=== PATIENT | male | born 1975 | race Caucasian/White ===

== ENCOUNTER 2024-05-17 12:57 | Emergency (ER) | payer SELFPAY ==
[2024-05-17] VITALS (16 sets, daily range): BP systolic 111–181; BP diastolic 75–101; PULSE 84–112; RESP 14–24; TEMP 36.3–36.8; O2SAT 95–100
--- NOTE | ~2024-05-17 | CT_ITS ---
EXAMINATION: CT abdomen pelvis w con DATE: 05/17/2024 15:04 INDICATION: Transaminitis. TECHNIQUE: Computed tomography (CT) of the abdomen and pelvis was performed with 100 mL Omnipaque 350 intravenous contrast. Automated exposure control and iterative reconstruction technique were employe d. The dose-length product was 831.93 mGy-cm. COMPARISON: None. FINDINGS: The visualized portions of the lung bases demonstrate a calcified left lung nodule and calc ified left hilar lymph nodes, consistent with old granulomatous disease. No pleural effusion. The hea rt size is normal. No pericardial effusion. There are coronary artery calcifications. There is a 7 mm cyst in the liver. There is mild intrahepatic duct dilatation. The common duct is dilated to 11 mm. The gallbladder and spleen are normal. The pancreatic duct is dilated to 7 mm. The adrenal glands and left kidney are normal. There is an 8 mm cyst in right kidney. There is a left inguinal hernia conta ining fat. There are no dilated loops of bowel. The appendix is normal. There is a 13 x 18 mm peripan creatic lymph node. There is no free intraperitoneal fluid. There is moderate thoracic and lumbar spo ndylosis. There is mild chronic anterior wedging of multiple thoracic vertebral bodies. IMPRESSION: 1. Mild intrahepatic and extrahepatic biliary duct dilatation and pancreatic duct dilatation. These f indings are suspicious for obstruction from either an occult mass such as pancreatic adenocarcinoma o r chronic pancreatitis. Consider ERCP. 2. Mildly enlarged peripancreatic lymph node. Reviewed, dictated and finalized at location A. IMPRESSION: 1. Mild intrahepatic and extrahepatic biliary duct dilatation and pancreatic du ct dilatation. These findings are suspicious for obstruction from either an occ ult mass such as pancreatic adenocarcinoma or chronic pancreatitis. Consider ER CP. 2. Mildly enlarged peripancreatic lymph node.
[2024-05-17 13:04] LABS: Glucose Point of Care > 500 mg/dl (65-105)
--- NOTE | 2024-05-17 13:09 | ED.GENADULT ---
HPI - General Adult General Chief complaint: Recheck/Abnormal Lab/Rx <David Ureña APRN - Last Filed: 05/17/24 13:11> Stated complaint: High Blood Sugar <David Ureña APRN - Last Filed: 05/17/24 13:11> Time Seen by Provider: 05/17/24 13:09 <David Ureña APRN - Last Filed: 05/17/24 13:11> Patient presents with increased thirst, generalized weakness, increased urinating for 1 month. patient states it has been getting worse. patient denies hx of diabetes. patient BS >500. PE: A&Ox3, BS non-labored CTA, abdomen soft and non-tender, HR tachycardic but regular <David Ureña APRN - Last Filed: 05/17/24 13:11> History of Present Illness HPI narrative: Breathe HPI. Patient is a 48-year-old male who presents ER with increased thirst and urination. Ongoing for last month. Associated with weakness. Patient reports a 50 lb weight loss. No fevers or chills or sweats. No diarrhea. No syncope. Accu-Chek here is reading high high. No history of diabetes. No aggravating or alleviating factors. <Paul Parada MD - Last Filed: 05/17/24 18:51> Related Data Allergies/adverse reactions: Allergies Allergy/AdvReac Type Severity Reaction Status Date / Time No Known Allergies Allergy Unknown Unverified 03/19/19 10:35 <David Ureña APRN - Last Filed: 05/17/24 13:11> Review of Systems Review of Systems: All systems reviewed & are unremarkable except as noted in HPI and below <Paul Parada MD - Last Filed: 05/17/24 18:51> Constitutional: Constitutional: Denies chills, Reports fatigue and Denies fever(s) <Paul Parada MD - Last Filed: 05/17/24 18:51> ENT: Reports system reviewed and no additional complaints, except as documented <Paul Parada MD - Last Filed: 05/17/24 18:51> Cardiovascular: Cardiovascular: Reports no additional cardiovascular complaints <Paul Parada MD - Last Filed: 05/17/24 18:51> Respiratory: Respiratory: Reports no additional respiratory complaints <Paul Parada MD - Last Filed: 05/17/24 18:51> Gastrointestinal: Gastrointestinal: Reports no additional gastrointestinal complaints <Paul Parada MD - Last Filed: 05/17/24 18:51> Musculoskeletal: Musculoskeletal: Reports no additional musculoskeletal complaints <Paul Parada MD - Last Filed: 05/17/24 18:51> [facility] Past Medical History Medical History: Medical History (Updated 05/17/24 @ 17:13 by Paul Parada MD) Healthy adult male <David JENNIE Ureña - Last Filed: 05/17/24 13:11> Surgical History Surgical History: Surgical History (Updated 05/17/24 @ 17:07 by Paul Parada MD) No history of previous surgery <David JENNIE Ureña - Last Filed: 05/17/24 13:11> Exam Narrative: GENERAL: Ill-appearing, well-nourished, and in no acute distress. HEAD: Normocephalic, atraumatic. ENT: Dry mucous membranes with pharyngeal erythema. NECK: Supple. CHEST: Clear to auscultation. No respiratory distress. HEART: Tachycardic and regular. Normal peripheral pulses. ABDOMEN: Soft, nontender, nondistended. EXTREMITIES: Normal range of motion. No edema. SKIN: Warm, dry, no rash. NEURO: Alert and oriented x3. PSYCH: Normal mood and affect. <Paul Parada MD - Last Filed: 05/17/24 18:51> Course Course Emergency Course: 1700: Accepted to the ICU at [facility] by Dr. Perales. Unable to provide GI care here. <Paul Parada MD - Last Filed: 05/17/24 18:51> Vital Signs Vital signs: Vital Signs Temperature 97.3 F L 05/17/24 12:58 Pulse Rate 112 H 05/17/24 12:58 Respiratory Rate 19 05/17/24 12:58 Blood Pressure 162/90 H 05/17/24 12:58 Pulse Oximetry 100 05/17/24 12:58 Oxygen Delivery Room Air 05/17/24 12:58 Temperature 98.3 F 05/17/24 17:30 Pulse Rate 100 05/17/24 18:21 Respiratory Rate 23 H 05/17/24 18:21 Blood Pressure 133/91 H 05/17/24 18:02 Pulse Oximetry 97 05/17/24 18:21
[2024-05-17 13:28] LABS: Basophils Percent Auto 0.4 % (0.2-1.2); Eosinophils Percent Auto 0.1 % (0-4.4); Hematocrit 45.4 % (42.0-52.0); Hemoglobin 15.9 g/dL (14.0-18.0); Immature Granulocyte Absolute 0.04 K/mm3 (0.00-0.031); Immature Granulocyte Percent A 0.4 % (0-0.5); Immature Platelet Fraction Pct 15.1 % (0.9-11.2); Lymphocytes Absolute Auto 1.18 K/mm3 (0.9-3.2); Lymphocytes Percent Auto 10.7 % (18.3-44.2); Mean Corpuscular Hemoglobin 31.3 pg (26-34); Mean Corpuscular Volume 89.4 fl (80-100); Mean Platelet Volume 12.9 fl (7.4-10.4); Monocytes Absolute Auto 0.6 K/mm3 (0.1-0.6); Monocytes Percent Auto 5.6 % (2.6-8.5); Neutrophils Absolute Auto 9.1 K/mm3 (1.3-6.7); Neutrophils Percent Auto 82.8 % (45.5-73.1); Platelet Count Result 238 k/mm3 (150-375); Red Blood Count 5.08 M/mm3 (4.6-6.20); Red Cell Distribution Width 12.3 % (11.5-14.5)
[2024-05-17 13:33] LABS: Add Urine Microscopic? NO; Appearance Urine Clear (Clear); Bilirubin Urine Negative (Negative); Blood Urine Negative (Negative); Color Urine Yellow (Yellow); Glucose Urine UA 3+ mg/dL (Negative); Ketones Urine 3+ mg/dL (Negative); Leukocyte Esterase Ur Negative LEU/UL (Negative); Nitrate Urine Negative (Negative); Protein Urine Negative (Negative); Urobilinogen Urine 0.2 mg/dL (<2.0)
[2024-05-17 13:42] LABS: Beta-Hydroxybutyrate/Acetoacetate 2.81 mmol/L (0.02-0.27)
[2024-05-17 13:49] LABS: Alanine Aminotransferase 406 U/L (6-50); Alkaline Phosphatase 964 U/L (38-126); Anion Gap 19 mmol/L (4-12); Aspartate Amino Transferase 81 U/L (17-59); Bilirubin,Total 1.9 mg/dL (0.2-1.3); Blood Urea Nitrogen 18 mg/dL (9-20); Calcium 10.3 mg/dL (8.4-10.2); Carbon Dioxide 18 mmol/L (22-30); Chloride 93 mmol/L (98-107); Estimated CRCL calculation 116 ml/min; Estimated Glomerular Filt Rate > 60; Glucose 752 mg/dL (65-110); Magnesium 2.1 mg/dL (1.6-2.3); Potassium 4.7 mmol/L (3.4-5.0); Sodium 130 mmol/L (137-145)
[2024-05-17] MEDS: SODIUM CHLORIDE 0.9% IV 1,000 ML 999 ML IV CONT ×3 (13:59→16:03)
[2024-05-17 14:30] LABS: Lactic Acid Reflex 2.8 mmol/L (0.7-2.0)
[2024-05-17 14:43] LABS: Base Excess ABG 0.6 mEq/l (+/-2.0); Carboxyhemoglobin 0.7 % THb (0-2.0); Fractional Inspired Oxygen 21 %; HCO3 ABG 21.4 mEq/l (22.0-26.0); Methemoglobin ABG 0.1 %THb (0-1.5); Oxygen Content ABG 21.2 %vol (16.0-22.0); Oxygen Saturation ABG 98.6 % (95.0-100.0); Oxyhemoglobin 98.1 % THb (90.0-100.0); PCO2 ABG 25.6 mmHg (35.0-45.0); PO2 ABG 111.1 mmHg (80.0-100.0); PO2 FiO2 Ratio Arterial Blood 5.29 %; Reduced Hemoglobin 1.1 %THb (0-5.0); Total Hemoglobin 15.3 g/dL (12.0-18.0)
[2024-05-17 14:46] LABS: Modified Allen's Test Pass; Site Drawn RIGHT RADIAL; pH ABG 7.541 (7.350-7.450)
[2024-05-17 15:29] LABS: Glucose Point of Care 497 mg/dl (65-105)
[2024-05-17 15:38] LABS: Hepatitis B Surface Antigen Negative (Negative)
[2024-05-17 15:44] LABS: HAV RESULT Negative (Negative); Hepatitis B Core IgM Result Negative (Negative)
[2024-05-17 15:53] LABS: Hemoglobin A1C > 14.0 % (<5.7)
[2024-05-17 15:55] LABS: Hepatitis B Surface Anti Res Negative; Hepatitis C Virus Antibody Negative (Negative)
[2024-05-17 16:36] LABS: Lipase 114 U/L (23-300)
[2024-05-17 17:18] LABS: Reflex Lactic Acid Yes or No Add Lactic
[2024-05-17] MEDS: INSULIN HUMAN REGULAR (*BKC) 100 UNITS in SODIUM CHLORIDE 0.9% IV 99 ML 9.43 UNITS IV CONT (17:43)
[2024-05-17 17:45] LABS: Glucose Point of Care 406 mg/dl (65-105)
[2024-05-17 17:58] LABS: Lactic Acid 1.5 mmol/L (0.7-2.0)
[2024-05-17 18:47] LABS: Glucose Point of Care 324 mg/dl (65-105)
[2024-05-17 19:45] LABS: Glucose Point of Care 336 mg/dl (65-105)
[2024-05-17 20:48] LABS: Glucose Point of Care 286 mg/dl (65-105)
[2024-05-17 22:19] LABS: Glucose Point of Care 207 mg/dl (65-105)
[2024-05-17] MEDS: DEXTROSE 5%/0.9% SOD CHL 1,000 ML 100 ML IV CONT (22:53)
[2024-05-17 23:05] LABS: Anion Gap 11 mmol/L (4-12); Blood Urea Nitrogen 15 mg/dL (9-20); Calcium 9.4 mg/dL (8.4-10.2); Carbon Dioxide 25 mmol/L (22-30); Chloride 104 mmol/L (98-107); Estimated CRCL calculation 133 ml/min; Estimated Glomerular Filt Rate > 60; Glucose 164 mg/dL (65-110); Potassium 3.5 mmol/L (3.4-5.0); Sodium 140 mmol/L (137-145)
[2024-05-17 23:29] LABS: Glucose Point of Care 202 mg/dl (65-105)
[2024-05-18 00:34] LABS: Glucose Point of Care 238 mg/dl (65-105)
[2024-05-18 00:36] VITALS: BP 129/77; PULSE 76; RESP 15; TEMP 36.6; O2SAT 97
--- NOTE | 2024-05-18 01:06 | PC.NURSE ---
[facility] here to transfer patient to [facility]
== END 2024-05-18 01:26 | disposition short-term general hospital (02) ==
PROVIDERS: Emergency Medicine; Nurse Practitioner Family; Emergency Provider Emergency Medicine
DX: E11.10 Type 2 diabetes mellitus with ketoacidosis without coma (principal); K83.1 Obstruction of bile duct
CPT/HCPCS: 36415; 36600; 74177; 80048; 80053; 80074; 81003; 82010; 82375; 82805; 82948; 83036; 83050; 83605; 83690; 83735; 84100; 85025; 85055; 86706; 87040; 96361; 96365; 96366; 99285; J1815; J7030; J7042; Q9967

== ENCOUNTER 2025-02-27 13:18 | Outpatient (CLI) | payer MEDICAID, SELFPAY ==
--- NOTE | ~2025-02-27 | PE_ITS ---
EXAMINATION: PET skull to mid thigh DATE: 02/27/2025 15:26 INDICATION: Malignant neoplasm of the pancreas TECHNIQUE: Blood glucose level was 99 mg/dL. 10.691 mCi of 18-fluorodeoxyglucose (18-FDG) was adminis tered i.v. Low dose computed tomography (CT) images were acquired from the base of the brain to the p roximal thighs for attenuation correction and anatomic localization. Positron emission tomography (PE T) images were acquired in the same distribution beginning 55 minutes after injection. Images includi ng fused PET/CT images were reconstructed in axial, coronal, and sagittal planes. Automated exposure control technique was employed. The dose-length product was 1187.67mGy-cm. COMPARISON: CT dated 05/17/2024 FINDINGS: Head/neck: There is symmetric increased activity in the oral cavity, palatine tonsils, parotid glands, submandi bular glands, laryngeal muscles and ocular muscles without CT correlate, likely physiologic. No patho logically enlarged cervical lymphadenopathy or suspicious foci of increased FDG uptake in the visuali zed head or neck. Chest: Mild emphysema. Discoid atelectasis in the right lower lobe. No suspicious pulmonary nodule, pneumoni a, pulmonary edema or pleural effusion. Heart size is normal. Atherosclerotic coronary artery calcium location. No pericardial effusion. Thoracic aorta is normal in caliber. Right internal jugular centr al venous port catheter with distal tip at the superior cavoatrial junction. No pathologically enlarg ed or FDG avid thoracic lymphadenopathy. Abdomen/pelvis/proximal thighs: Physiologic renal accumulation and excretion of FDG activity in the kidneys, bladder and along portio ns of ureters. Mild prostatomegaly measuring 4.0 x 3.6 cm. 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 Secondary mild intrahepatic pne umobilia. Diffuse hepatic steatosis with normal degree and heterogenous pattern of increased uptake t hroughout the liver without radiologic correlate or dominant FDG avid lesion. The spleen and bilatera l adrenal glands are normal. Mild uptake scattered throughout the bowels without radiologic correlate , also likely physiologic. No bowel obstruction. No other abnormal foci of increased FDG uptake or pa thologically enlarged lymphadenopathy in the abdomen, pelvis or proximal thighs. Musculoskeletal: There is mild increased likely physiologic muscular activity without radiologic correlate in the musc le of the bilateral upper arms and more prominently in the hands and forearms, at the bilateral shoul ders most prominent at the right supraspinatus muscle and at the bilateral gluteal muscles most promi nent at the right gluteus medius muscle. No suspicious lytic, blastic or abnormally FDG avid bone les ions. IMPRESSION: 1. Postoperative change of interval Whipple procedure. No FDG avid lesions suspicious for residual/re current or metastatic disease. Reviewed, dictated and finalized at location A. IMPRESSION: 1. Postoperative change of interval Whipple procedure. No FDG avid lesions susp icious for residual/recurrent or metastatic disease.
--- OUTSIDE RECORDS SUMMARY | 2025-02-27 13:23 | XMS_ITS ---
Author Organization [facility] Address [address] [place] [id number] Phone Care Team Providers Care District Medical Examiner Name Role Phone Mark Barrett MD Primary Care Provider [phone] Active Problems Problem Noted Date Diagnosed Date Protein-calorie malnutrition, moderate Cancer of head of pancreas 12/11/2024 Diabetes mellitus, new onset 05/22/2024 Encounter for diabetes education 05/22/2024 Insulin dose changed 05/22/2024 Elevated LFTs 05/21/2024 Diabetic acidosis without coma 05/18/2024 Hypokalemia 05/18/2024 Pancreatic mass 05/18/2024 Type 1 diabetes mellitus with hyperglycemia 12/2023 Current Treatment and Therapy Plans No current plan information found. Past Treatment and Therapy Plans No past plan information found. Lifetime Dose Tracking * Chemical Lifetime Dose Automatic Entry Manual Entr y Effective Dose 26.6 mSv 26.6 mSv 0 mSv Total DLP 1,950 DLP 1,950 DLP 0 DLP CTDIvol Max 26.14 mGy 26.14 mGy 0 mGy
--- OUTSIDE RECORDS SUMMARY | 2025-02-27 13:23 | XMS_ITS | Encounter Summary ---
Author Organization [facility] Address [address] [place] [address] Care Team Providers Care Procurement Assistant Name Role Phone Mark Barrett MD Primary Care Provider [phone] Encounter Details Date Type Department Care Team (Late st Contact Info) Description 02/25/2025 External Device Data [facility] ABSTRACTION Provider, Abstract NO ADDRESS ON FILE Social History Tobacco Use Types Packs/Day Years Used Date Smoking Tobacco: Former Cigarettes 1.5 25 0 07/02/1993 - 07/02/2018 Passive Smoke Exposure: Past Smokeless Tobacco: Never Alcohol Use Standard Drinks/Week Comments Not Currently 0 (1 standard drink = 0.6 oz pur e alcohol) Feeling Safe Answer Date Recorded Are you in a relationship wi th someone who hurts you emotionally and/or physically? No 12/20/2024 Food Insecurity Answer Date Recorded Patient needs follow up regardin 02/06/2025 Transportation Needs Answer Date Record ed Patient needs follow up regardin 02/06/2025 Housing Stability Answer Date Recorded Social/Environmental Concerns No concerns Utility Needs Answer Date Recorded Patient needs follow up regardin 02/06/2025 Sex and Gender Information Value Date Recorded Sex Assigned at Not on file Legal Sex Male 4:17 PM CDT Gender Identity Not on file Sexual Orientation Not on file documented as of this encounter Plan of Treatment Upcoming Encounters Date Type Department Care Team (Late st Contact Info) Description 03/06/2025 9:15 AM CDT Office Visit [facility] - [place] [address] [place] [address] Bautista Meyer MD [address] [place] [address] documented as of this encounter Visit Diagnoses Not on filedocumented in this encounter Care Teams Procurement Assistant Relationship Specialty Start Date End Date Mark Barrett MD [address] [place] [address] PCP - General Internal Medicine 12/20/24 Dr Mark Barrett [id number] [place] [id number] 12/11/24 documented as of this encounter
--- OUTSIDE RECORDS SUMMARY | 2025-02-27 13:23 | XMS_ITS | Clinical Summary ---
Author Organization [facility] Address [address] [place] [address] Phone Care Team Providers Care Oven Roaster Name Role Phone Fabio Barrett MD Primary Care Provider [phone] Allergies No known active allergies Medications Insulin [place], Disposable, (Pau Pen Needle) 32 gauge x 5/32 Needle 1 Each by [facility]Non-Drug; Combo Route) route 4 times daily before meals and at bedtime. 100 Each 2 05/22/2024 5:31 PM CDT 4 Active Blood-Glucose Meter (True Metrix Glucose Meter) Use as directed 1 Each 05/29/2024 2:37 PM CDT 4 Active lidocaine-pril ocaine (EMLA) 2.5-2.5 % Cream Apply a quarter size amount to port site 30 minutes before acces. 30 Gram 1 4 Active prochlorperazi ne maleate (COMPAZINE) 10 mg tablet Take 1 Tablet (10 mg) by mouth every 6 hours as needed for Nausea/Emesis. 30 Tablet 1 4 Active HYDROcodone-ac etaminophen (NORCO) 5-325 mg tabletIndicati ons:Cancer of head of pancreas (CMS/HCC) Take 1 Tablet by mouth every 6 hours as needed for Moderate Pain. Max Daily Amount: 4 Tablets 20 Tablet 5 Active acetaminophen (TYLENOL) 325 mg tablet Take 2 Tablets (650 mg) by mouth every 6 hours as needed for Pain, Mild. 5 Active methocarbamoL (ROBAXIN) 750 mg tablet Take 1 Tablet (750 mg) by mouth every 8 hours as needed for Spasm. 12 Tablet 12/26/2024 1:43 PM CDT 5 Active metoclopramide HCl (REGLAN) 10 mg tablet Take 1 Tablet (10 mg) by mouth 3 times daily before meals. 90 Tablet 12/26/2024 1:43 PM CDT 5 Active pantoprazole (PROTONIX) 40 mg Tablet, Delayed Release (E.C.) Starting on 12/27/24: Take 1 Tablet (40 mg) by mouth daily before breakfast for 14 days. 30 Tablet 2 5 Active capecitabine (XELODA) 150 mg tablet Take 1 Tablet (150 mg) by mouth 2 times daily with meals 21-days and 7 days off each 28 day cycle. 42 Tablet 5 5 Active capecitabine (Xeloda) 500 mg tablet Take 3 Tablets (1,500 mg) by mouth 2 times daily with meals for 21 days on and 7 days off each 28 day cycle. 126 Tablet 5 5 Active capecitabine (XELODA) 150 mg tablet Take 1 Tablet (150 mg) by mouth 2 times daily with meals on the days of radiation therapy from Monday to Monday. Take with 1 other capecitabine prescription for 1,650 mg total. 40 Tablet 5 Active capecitabine (Xeloda) 500 mg tablet Take 3 Tablets (1,500 mg) by mouth 2 times daily with meals on the days of radiation therapy from Monday to Monday. Take with 1 other capecitabine prescription for 1,650 mg total. 120 Tablet 5 Active capecitabine (XELODA) 150 mg tablet Take 1 Tablet (150 mg) by mouth 2 times daily with meals on the days of radiation therapy from Monday to Monday. Take with 1 other capecitabine prescription for 1,650 mg total. 40 Tablet 5 025 Discontin ued(Reord er) capecitabine (Xeloda) 500 mg tablet Take 3 Tablets (1,500 mg) by mouth 2 times daily with meals on the days of radiation therapy from Monday to Monday. Take with 1 other capecitabine prescription for 1,650 mg total. 120 Tablet 5 025 Discontin ued(Reord er) Active Problems Problem Noted Date Diagnosed Date Protein-calorie malnutrition, moderate 5 Cancer of head of pancreas 12/11/2024 Diabetes mellitus, new onset 05/22/2024 Encounter for diabetes education 05/22/2024 Insulin dose changed 05/22/2024 Elevated LFTs 05/21/2024 Diabetic acidosis without coma 05/18/2024 Hypokalemia 05/18/2024 Pancreatic mass 05/18/2024 Type 1 diabetes mellitus with hyperglycemia 12/2023 Encounters Date Type Department Care Team Description 5 External Device Data STL ABSTRACTION Provider, Abstract 5 External Device Data STL ABSTRACTION Provider, Abstract 5 External Device Data STL ABSTRACTION Provider, Abstract 5 Abstract [facility] - [place] [address] [place] [address] Bautista Meyer MD 5 Abstract [facility] - [place] [address] [place] [address] Bautista Meyer MD 5 Abstract [facility] - [place] [address] [place] [address] Bautista Meyer MD 5 Specialty Pharmacy [facility] [address] [place] [phone] Eleonora Martinez, PHARMACIST 5 Specialty Pharmacy [facility] [address] [place] [phone] Eleonora Martinez, PHARMACIST 5 Refill [facility] - [place] [address] [place] [address] Bautista Meyer MD 5 Orders Only [facility] - [place] [address] [place] [address] Bautista Meyer MD Primary pancreatic adenocarcinoma (CMS/HCC) 5 Specialty Pharmacy [facility] [address] [place] [phone] Caro Elise, ROSEMARY Specialty [facility]acy Clinical Intervention 5 Specialty Pharmacy [facility] [place] [address] Caro Elise, PHARMACIST 5 4:15 PM CDT Telephone Check Up [facility] - [place] [address] [place] [address] Bautista Meyer MD 5 Orders Only [facility] - [place] [address] [place] [address] Bautista Meyer MD Primary pancreatic adenocarcinoma (CMS/HCC) 5 Orders Only [facility] - [place] [address] [place] [address] Bautista Meyer MD 5 Orders Only [facility] - [place] [address] [place] [address] Bautista Meyer MD 5 10:00 AM CDT Office Visit [facility] [address] [place] [address] Bautista Meyer MD Primary pancreatic adenocarcinoma (CMS/HCC) (Primary Dx) 5 2:37 PM CDT - 5 11:59 PM CDT Hospital Encounter [facility] Infusion Services [facility] [address] [place] [address] Tavia Galan PA-C [facility] [place] Infusion Discharge Disposition: Home or Self Care 5 2:00 PM CDT Office Visit [facility] Special[facility] [address] [facility] [address] [place] [address] Tavia Galan PA-C Cancer of head of pancreas (CMS/HCC) (Primary Dx); H/O Whipple procedure 5 External Device Data STL ABSTRACTION Provider, Abstract 5 External Device Data STL ABSTRACTION Provider, Abstract 5 External Device Data STL ABSTRACTION Provider, Abstract 5 Orders Only [facility] Oncology [facility] Hematology [facility] [address] [place] [address] Bautista Meyer MD Primary pancreatic adenocarcinoma (CMS/HCC) 5 External Device Data STL ABSTRACTION Provider, Abstract 5 1:00 PM CDT Office Visit [facility] [address] [facility] [address] [place] [address] Tavia Galan PA-C Cancer of head of pancreas (CMS/HCC) (Primary Dx); H/O Whipple procedure 5 Orders Only [facility] Oncology [facility] [address] [place] [address] Bautista Meyer MD Primary pancreatic adenocarcinoma (CMS/HCC) 5 External Device Data STL ABSTRACTION Provider, Abstract 5 External Device Data STL ABSTRACTION Provider, Abstract 5 External Device Data STL ABSTRACTION Provider, Abstract 5 External Device Data STL ABSTRACTION Provider, Abstract 5 External Device Data STL ABSTRACTION Provider, Abstract 5 Orders Only [facility] Oncology [facility] [address] [place] [address] Bautista Meyer MD Primary pancreatic adenocarcinoma (CMS/HCC) 5 11:59 PM CDT Anesthesia Event [facility] Surgical Stepdown [address] [place] [address] Padma Rodriguez MD 5 11:59 PM CDT Anesthesia Event [facility] Surgical Stepdown [address] [place] [address] Padma Rodriguez MD 5 11:59 PM COMPLEX CASE MANAGER Anesthesia Event [facility] Surgical Stepdown [address] [place] [address] Padma Rodriguez MD 5 11:59 PM COMPLEX CASE MANAGER Anesthesia Event [facility] Surgical Stepdown [address] [place] [address] Padma Rodriguez MD 5 External Device Data STL ABSTRACTION Provider, Abstract 5 7:00 AM COMPLEX CASE MANAGER - 5 2:25 PM COMPLEX CASE MANAGER Surgery [facility] Operating Room [address] [place] [address] Sahra Vaughan MD EXPLORATORY LAPAROTOMY, PANCREATICODUODODENECTOMY 5 6:59 AM COMPLEX CASE MANAGER Anesthesia Event [facility] Operating Room [address] [place] [address] Michael Hirsch MD Grahek-Lindsey, Lisa M PA-C 5 5:31 AM COMPLEX CASE MANAGER - 5 2:12 PM CDT Hospital Encounter [facility] Surgical Stepdown [address] [place] [address] Sahra Vaughan MD Cancer of head of pancreas ([facility]/HCC) Discharge Disposition: Home or Self Care 5 External Device Data STL ABSTRACTION Provider, Abstract 5 Travel 5 External Device Data STL ABSTRACTION Provider, Abstract 5 7:45 AM COMPLEX CASE MANAGER - 5 11:59 PM COMPLEX CASE MANAGER Hospital Encounter [facility] Pre Surgical Assessment [address] [place] [address] Sahra Vaughan MD Discharge Disposition: Home or Self Care 5 External Device Data STL ABSTRACTION Provider, Abstract 5 External Device Data STL ABSTRACTION Provider, Abstract 5 External Device Data STL ABSTRACTION Provider, Abstract 5 1:00 PM COMPLEX CASE MANAGER Office Visit [facility] [address] [facility] [address] [place] [address] Tommy Salinas MD Type 1 diabetes mellitus with hyperglycemia (CMS/HCC) (Primary Dx); Malignant neoplasm of head of pancreas (CMS/HCC); Cancer of head of pancreas (CMS/HCC) 5 Orders Only [facility]ology [address] [place] [phone] Bautista Meyer MD Primary pancreatic adenocarcinoma (CMS/HCC) 5 External Device Data STL ABSTRACTION Provider, Abstract 5 2:04 PM COMPLEX CASE MANAGER - 5 11:59 PM COMPLEX CASE MANAGER Hospital Encounter [facility] Imaging Services [facility] [address] [place], [place] [address] Bautista Meyer MD Discharge Disposition: Home or Self Care 5 Orders Only [facility] [address] [facility] [address] [place] [address] Sahra Vaughan MD Pancreatic mass (Primary Dx) 5 Prep for Surgery [facility] [address] [facility] [address] [place] [address] Sahra Vaughan MD Pancreatic mass (Primary Dx) from Last 3 Months Family History Medical History Relation Name Comments Breast Cancer Mother Colon Cancer Neg Hx Relation Name Status Comments Mother Social History Tobacco Use Types Packs/Day Years Used Date Smoking Tobacco: Former Cigarettes 1.5 25 0 07/02/1993 - 07/02/2018 Passive Smoke Exposure: Past Smokeless Tobacco: Never Tobacco Cessation:Counseling Given: Not Answered Alcohol Use Standard Drinks/Week Comments Not Currently [...] on file Sexual Orientation Not on file Last Filed Vital Signs Vital Sign Reading Time Taken Comments Blood Pressure 126/84 01/23/2025 9:56 AM CDT Pulse 82 01/23/2025 9:56 AM CDT Temperature 37.1 C (98.7 F) 01/23/2025 9:56 AM CDT Respiratory Rate 16 01/23/2025 9:56 AM CDT Oxygen Saturation 96% 01/23/2025 9:56 AM CDT Inhaled Oxygen Concentration - - Weight 89.3 kg (196 lb 12.8 oz) 01/23/2025 9:56 AM CDT Height 180.3 cm (5' 11 ) 01/22/2025 2:14 PM CDT Body Mass Index 27.45 01/22/2025 2:14 PM CDT Plan of Treatment Upcoming Encounters Date Type Department Care Team (Late st Contact Info) Description 03/06/2025 9:15 AM CDT Office Visit [facility] - [place] [address] [facility] [address] [place] [address] Bautista Meyer MD [address] [facility] [address] [place] [address] Health Maintenance Due Date Last Done Comments DIABETES ANNUAL FOOT EXAM 1991 DIABETES ANNUAL RETINAL EXAM 1991 DIABETES MICROALBUMIN ANNUAL SCREEN 1991 LDL CHOLESTEROL ANNUAL 1991 DTAP/TDAP/TD VACCINES (1 - Tdap) 1992 HEPATITIS B VACCINES (1 of 3 - 19+ 3-dose series) 09/15 COLORECTAL SCREENING 2018 Colorectal Cancer Screening 2018 FIT-DNA Q 3 years 2018 FIT/FOBT Q 1 year 2018 Flex Sig/CT Colonography Q 5 years 2018 Lung Cancer Screening 2023 ZOSTER VACCINE (1 of 2) 2023 INFLUENZA VACCINE (#1) 2024 DIABETES HBA1C Q 6 MONTHS 11/18/2024 05/18/2024 Medical Devices Implanted Type Area Compo Conveyor Operator Device Identifier Shelf Expiration Date Model / Serial / Lot Clip Ligating Horizon Ti 24 [id number] Rp - [id number] Implanted:Qt y: 1 on 12/20/2024 by Sahra Vaughan MD at [facility] N/A: Abdomen TELEFLEX- WECK CLOSURE SYS 06/26/2029 [id number] / / [id number] Clip Ligating Horizon Med Ti [id number] - [facility] - [id number] Implanted:Qt y: 1 on 12/20/2024 by Sahra Vaughan MD at [facility] N/A: Abdomen TELEFLEX- WECK CLOSURE SYS 05/20/2029 [id number] / / [id number] Clip Ligating Horizon Lrg Ti 10.07x12.38m m [id number] - Csc - [id number] Implanted:Qt y: 2 on 12/20/2024 by Sahra Vaughan MD at [facility] N/A: Abdomen TELEFLEX- WECK CLOSURE SYS 04/16/2029 [id number] / / [id number] Tube Feeding Dunbar 8fr 42in Rdpq [id number] - [id number] Implanted:Qt y: 1 on 12/20/2024 by Sahra Vaughan MD at [facility] Feeding Device N/A: Abdomen CARDINAL HLTH 04/14/2028 [id number] / / [id number] Hemostat Surg Snow 2x4in 2081 - [id number] Implanted:Qt y: 4 on 12/20/2024 by Sahra Vaughan MD at [facility] Hemostatic N/A: Abdomen [employer]J- [employer] 07/15/2026 [id number] / / [id number]- 024 Implanted:Qt y: 1 on 08/08/2024 by Leroy Pedroza MD Port Right: Chest Wall [id number] / / [id number] Description:BARD ISP POWERPO RT IMPLANTED INTO RIGHT CHEST WALL ON 08/08/[address] PEDROZA. Stent Bili Wallflex Rx 10x40 [id number] - [id number] Implanted:Qt y: 1 on 05/21/2024 by Rico Amato MD at [facility] Stent [employer] [id number] 12/06/2025 [id number] / / [id number] Procedures Procedure Name Priority Date/Time Associated Diagnosis Comments BASIC METABOLIC PANEL Routine 01/23/2025 1:53 PM CDT CHG CA 19 9 Routine 01/23/2025 12:24 PM CDT TELEMETRY REPORT 12/27/2024 3:21 PM CDT TELEMETRY REPORT 12/27/2024 3:10 PM CDT TELEMETRY REPORT 12/27/2024 2:19 PM CDT TELEMETRY REPORT 12/27/2024 2:19 PM CDT POC GLUCOSE Routine 12/26/2024 11:13 AM CDT POC GLUCOSE Routine 12/26/2024 8:22 AM CDT PHOSPHORUS Routine 12/26/2024 7:20 AM CDT MAGNESIUM LEVEL Routine 12/26/2024 7:20 AM CDT BASIC METABOLIC PANEL Routine 12/26/2024 7:20 AM CDT CBC WITH DIFFERENTIAL Routine 12/26/2024 7:20 AM CDT POC GLUCOSE Routine 12/26/2024 4:24 AM CDT POC GLUCOSE Routine 12/25/2024 11:41 PM CDT POC GLUCOSE Routine 12/25/2024 9:25 PM CDT POC GLUCOSE Routine 12/25/2024 4:25 PM CDT POC GLUCOSE Routine 12/25/2024 12:06 PM CDT POC GLUCOSE Routine 12/25/2024 8:46 AM CDT AMYLASE, BODY FLUID Routine 12/25/2024 6:53 AM CDT PHOSPHORUS Routine 12/25/2024 6:09 AM CDT MAGNESIUM LEVEL Routine 12/25/2024 6:09 AM CDT BASIC METABOLIC PANEL Routine 12/25/2024 6:09 AM CDT CBC WITH DIFFERENTIAL Routine 12/25/2024 6:09 AM CDT POC GLUCOSE Routine 12/25/2024 4:01 AM CDT POC GLUCOSE Routine 12/24/2024 11:01 PM CDT POC GLUCOSE Routine 12/24/2024 8:28 PM CDT POC GLUCOSE Routine 12/24/2024 6:32 PM CDT TELEMETRY REPORT 12/24/2024 5:32 PM CDT TELEMETRY REPORT 12/24/2024 5:27 PM CDT TELEMETRY REPORT 12/24/2024 4:00 PM CDT POC GLUCOSE Routine 12/24/2024 2:37 PM CDT POC GLUCOSE Routine 12/24/2024 9:10 AM CDT POC GLUCOSE Routine 12/24/2024 4:14 AM CDT PHOSPHORUS Routine 12/24/2024 4:06 AM CDT MAGNESIUM LEVEL Routine 12/24/2024 4:06 AM CDT HEPATIC FUNCTION PANEL Routine 4:06 AM CDT BASIC METABOLIC PANEL Routine 12/24/2024 4:06 AM CDT CBC WITH DIFFERENTIAL Routine 12/24/2024 4:06 AM CDT POC GLUCOSE Routine 12/24/2024 12:01 AM CDT POC GLUCOSE Routine 12/23/2024 9:06 PM CDT POC GLUCOSE Routine 12/23/2024 5:11 PM CDT POC GLUCOSE Routine 12/23/2024 1:00 PM CDT POC GLUCOSE Routine 12/23/2024 8:42 AM CDT AMYLASE, BODY FLUID Routine 12/23/2024 6:25 AM CDT AMYLASE, BODY FLUID Routine 12/23/2024 6:25 AM CDT PHOSPHORUS Routine 12/23/2024 5:09 AM CDT MAGNESIUM LEVEL Routine 12/23/2024 5:09 AM CDT HEPATIC FUNCTION PANEL Routine 5:09 AM CDT BASIC METABOLIC PANEL Routine 12/23/2024 5:09 AM CDT CBC WITH DIFFERENTIAL Routine 12/23/2024 5:09 AM CDT POC GLUCOSE Routine 12/23/2024 5:08 AM CDT POC GLUCOSE Routine 12/22/2024 11:29 PM CDT POC GLUCOSE Routine 12/22/2024 9:18 PM CDT POC GLUCOSE Routine 12/22/2024 4:28 PM CDT POC GLUCOSE Routine 12/22/2024 2:44 PM CDT POC GLUCOSE Routine 12/22/2024 11:44 AM CDT POC GLUCOSE Routine 12/22/2024 7:58 AM CDT POC GLUCOSE Routine 12/22/2024 5:06 AM CDT PHOSPHORUS Routine 12/22/2024 5:01 AM CDT MAGNESIUM LEVEL Routine 12/22/2024 5:01 AM CDT HEPATIC FUNCTION PANEL Routine 5:01 AM CDT BASIC METABOLIC PANEL Routine 12/22/2024 5:01 AM CDT CBC WITH DIFFERENTIAL Routine 12/22/2024 5:01 AM CDT POC GLUCOSE Routine 12/22/2024 12:45 AM COMPLEX CASE MANAGER POC GLUCOSE Routine 12/21/2024 8:50 PM COMPLEX CASE MANAGER POC GLUCOSE Routine 12/21/2024 4:49 PM COMPLEX CASE MANAGER POC GLUCOSE Routine 12/21/2024 11:48 AM COMPLEX CASE MANAGER AMYLASE, BODY FLUID Routine 12/21/2024 8:07 AM COMPLEX CASE MANAGER POC GLUCOSE Routine 12/21/2024 7:51 AM COMPLEX CASE MANAGER POC GLUCOSE Routine 12/21/2024 5:31 AM COMPLEX CASE MANAGER PHOSPHORUS Routine 12/21/2024 5:08 AM COMPLEX CASE MANAGER MAGNESIUM LEVEL Routine 12/21/2024 5:08 AM COMPLEX CASE MANAGER HEPATIC FUNCTION PANEL Routine 5:08 AM COMPLEX CASE MANAGER BASIC METABOLIC PANEL Routine 12/21/2024 5:08 AM COMPLEX CASE MANAGER CBC WITH DIFFERENTIAL Routine 12/21/2024 5:08 AM COMPLEX CASE MANAGER AMYLASE, BODY FLUID Routine 12/21/2024 5:08 AM COMPLEX CASE MANAGER POC GLUCOSE Routine 12/21/2024 5:00 AM COMPLEX CASE MANAGER POC GLUCOSE Routine 12/21/2024 12:23 AM COMPLEX CASE MANAGER POC GLUCOSE Routine 12/20/2024 9:25 PM COMPLEX CASE MANAGER HEPATIC FUNCTION PANEL Stat 4:27 PM COMPLEX CASE MANAGER BASIC METABOLIC PANEL Routine 12/20/2024 4:27 PM COMPLEX CASE MANAGER CBC WITH DIFFERENTIAL Stat 12/20/2024 4:27 PM COMPLEX CASE MANAGER POC GLUCOSE Routine 12/20/2024 4:12 PM COMPLEX CASE MANAGER PT EVAL AND TREAT Routine 12/20/2024 3:40 PM COMPLEX CASE MANAGER OT EVAL AND TREAT Routine 12/20/2024 3:40 PM COMPLEX CASE MANAGER POC GLUCOSE Routine 12/20/2024 2:26 PM COMPLEX CASE MANAGER POC LACTIC ACID Routine 12/20/2024 2:05 PM COMPLEX CASE MANAGER OXIMETRY Routine 12/20/2024 2:05 PM COMPLEX CASE MANAGER METHEMOGLOBIN QUANTITATIVE Routine 12/20/2024 2:05 PM COMPLEX CASE MANAGER CARBOXYHEMOGLOBIN Routine 12/20/2024 2:05 PM COMPLEX CASE MANAGER BLOOD GAS,(INCL. H+H, LYTES, GLUC) Routine 12/20/2024 2:05 PM COMPLEX CASE MANAGER POC LACTIC ACID Routine 12/20/2024 10:08 AM COMPLEX CASE MANAGER OXIMETRY Routine 12/20/2024 10:08 AM COMPLEX CASE MANAGER METHEMOGLOBIN QUANTITATIVE Routine 12/20/2024 10:08 AM COMPLEX CASE MANAGER CARBOXYHEMOGLOBIN Routine 12/20/2024 10:08 AM COMPLEX CASE MANAGER BLOOD GAS,(INCL. H+H, LYTES, GLUC) Routine 12/20/2024 10:08 AM COMPLEX CASE MANAGER PATHOLOGY Pathology 12/20/2024 9:04 AM COMPLEX CASE MANAGER MA ANES INSERT CATH, ART, PERCUT, SHORTTERM Routine 12/20/2024 8:23 AM COMPLEX CASE MANAGER CENTRAL LINE ADULT DOUBLE LUMEN Routine 12/20/2024 7:57 AM COMPLEX CASE MANAGER MA ANES INSERT TUNNELED CV CATH W/O PORT OR PUMP Routine 12/20/2024 7:57 AM COMPLEX CASE MANAGER MA ANESTHESIA BLOCK PB PLACEHOLDER CHARGE Routine 12/20/2024 7:52 AM COMPLEX CASE MANAGER MA ANES INSERT ENDOTRACHEAL AIRWAY Routine 12/20/2024 7:08 AM COMPLEX CASE MANAGER LAPAROSCOPY DIAGNOSTIC/OPERATIVE 12/20/2024 7:00 AM COMPLEX CASE MANAGER PANCREATIC CANCER (C25.90) Special Needs DR OLIVAS 7 HRS WITH 0700 START, DR APARNA OJEDA TO ASSIST, *DIABETIC HX* MA PNCRTECT PROX STOT W/PANCREATOJEJUNOSTOMY 12/20/2024 7:00 AM COMPLEX CASE MANAGER PANCREATIC CANCER (C25.90) Special Needs DR OLIVAS 7 HRS WITH 0700 START, DR APARNA OJEDA TO ASSIST, *DIABETIC HX* POC GLUCOSE Routine 12/20/2024 5:42 AM COMPLEX CASE MANAGER VERIFICATION BLOOD GROUP Stat 12/20/2024 5:41 AM COMPLEX CASE MANAGER Encounter for blood typing EKG 12-LEAD Routine 12/17/2024 9:00 AM COMPLEX CASE MANAGER Pancreatic mass TYPE AND SCREEN Routine 12/17/2024 8:46 AM COMPLEX CASE MANAGER Cancer of head of pancreas (CMS/HCC) COMPREHENSIVE METABOLIC PANEL Routine 12/17/2024 8:46 AM COMPLEX CASE MANAGER [id number]|2025-02-27 13:23:00|2025-02-27 13:23:00|XMS_ITS|AZALEA PRABHJOT|External Medical Summaries|[id number]|" Data Portability Created on: February 27, 2025 Ru Andrade .[id number] : 1975 Sex: Male Author Organization [facility] ALEXMalorie Address [address] [place] [address] Care Team Providers Care Oven Roaster Name Role Phone FABIO BARRETT Primary Care Provider Assessment Encounter Date Assessment Date Assessment LastModified by Organization Details LastModified Time 06/27/2024 06/27/2024 healthy lifestyle care instructions have been discussed insulin has been refilled he is already set up with the parent educator we will get him set up with continuous blood glucose monitoring keep follow up with Oncology get records from the hospital see me back in a month [email or web address] Not available 06/27/2024 23:21:38 08/01/2024 08/01/2024 continue with insulin following up with Heme-Onc for his presumed pancreatic cancer I have not had the pathology report officially and I do not have a note from Heme-Onc yet I will see him in a month [email or web address] Not available 08/19/2024 21:13:01 09/09/2024 09/09/2024 he will see me back in 2-3 months now he says he is just too busy with the chemo to go get an eye exam her foot exam and does not want to do colonoscopy at this time follow up with me in 2 months [email or web address] Not available 09/12/2024 14:30:18 12/19/2024 12/19/2024 follow up 2 months right now off of insulin as stated he is having Whipple tomorrow [email or web address] Not available 12/20/2024 06:56:30 02/13/2025 02/13/2025 Continue current therapy A1c today is 5.6 does not want to do any of his diabetic foot exam eye exam anything till he gets done with his radiation I will see him in 3 months does not want to start statin or anything like that yet [email or web address] Not available 02/13/2025 15:23:47 Plan of Treatment Reminders Order Date Submit Date Provider Last Modified By Organization Details Last Modified Time Details Appointments ANY 15 2024 01:30P M Fabio Barrett MD Not available Not available Not available Lab HbA1c (hemoglob in A1c), blood 2023 024 [id number] In-Office Order, Internal Use Only DO Not Attach Compendium DO Not Attach Compendium, Do Not Delete/merge, [id number] 09/09/2024 18:14:33 Referral None recorded. Procedures None recorded. Surgeries None recorded. Imaging None recorded. Medication Orders Basaglar KwikPen U-100 Insulin 100 unit/mL (3 mL) subcutane ous 2023 024 [id number] [id number], [address] [place], [place], [id number], 06/27/2024 21:21:01 Humalog KwikPen (U-100) Insulin 100 unit/mL subcutane ous 2023 024 [id number] [id number], [address] [place], [place], [id number], 06/27/2024 21:21:01 Patient TargetsNo targets recorded. Patient Instructions Encounter Date Encounter Id Patient Instructions Last Modified By Organization Details Last Modified Time 06/27/2024 [id number] A healthy lifestyle: care instructions [email or web address] Not available 06/27/2024 21:21:01 09/09/2024 [id number] A healthy lifestyle: care instructions [email or web address] Not available 09/12/2024 14:30:33 02/13/2025 [id number] A healthy lifestyle: care instructions [email or web address] Not available 02/13/2025 17:37:53 Reason for Referral None Reported. Results Created Date Observation Date Name Description Value Unit Range Abnormal Flag Note LastModifiedBy Organization Detail LastModifiedTime 05/30/20 24 05/30/2024 Compr ehens andrew metab olic 1999 panel - Serum or Plasm a sodium [moles/volum e] in serum or plasma 141 mmol/ L low: 136mmo l/Lhig h: 145mmo l/L SODIU M 141 136 - 145 mmol/ L 05/30 4:26 PM CDT [employer] [facility] [facility] Not Available Not Available 12/19/2024 15:49:16 05/30/20 24 05/30/2024 Compr ehens andrew metab olic 1999 panel - Serum or Plasm a potassium [moles/volum e] in serum or plasma 3.9 mmol/ L low: 3.5mmo l/Lhig h: 5mmol/ L POTAS SIUM 3.9 3.5 - 5.0 mmol/ L 05/30 4:26 PM CDT [employer] [facility] Not Available Not Available 12/19/2024 15:49:16 05/30/20 24 05/30/2024 Compr ehens andrew metab olic 1999 panel - Serum or Plasm a chloride 105 mmol/ L low: 98mmol /Lhigh : 107mmo l/L CHLOR UGSTAVO 105 98 - 107 mmol/ L 05/30 4:26 PM CDT [facility] [facility] Not Available Not Available 12/19/2024 15:49:16 05/30/20 24 05/30/2024 Compr ehens andrew metab olic 1999 panel - Serum or Plasm a carbon dioxide, total [moles/volum e] in serum or plasma 24 mmol/ L low: 22mmol /Lhigh : 29mmol /L CO2 24 22 - 29 mmol/ L 05/30 4:26 PM CDT [facility] Not Available Not Available 12/19/2024 15:49:16 05/30/20 24 05/30/2024 Compr ehens andrew metab olic 1999 panel - Serum or Plasm a calcium 9 mg/dL low: 8.6mg/ dLhigh : 10.2mg /dL CALCI UM 9.0 8.6 - 10.2 mg/dL 05/30 4:26 PM CDT [facility] Not Available Not Available 12/19/2024 15:49:16 05/30/20 24 05/30/2024 Compr ehens andrew metab olic 1999 panel - Serum or Plasm a BUN 13 mg/dL low: 6mg/dL high: 20mg/d L BUN 13 6 - 20 mg/dL 05/30 4:26 PM CDT [facility] Not Available Not Available 12/19/2024 15:49:16 05/30/20 24 05/30/2024 Compr ehens andrew metab olic 1999 panel - Serum or Plasm a creatinine [mass/volume ] in serum or plasma 0.77 mg/dL low: 0.67mg /dLhig h: 1.17mg /dL CREAT ININE 0.77 0.67 - 1.17 mg/dL 05/30 4:26 PM CDT [facility] Not Available Not Available 12/19/2024 15:49:16 05/30/20 24 05/30/2024 Compr ehens andrew metab olic 1999 panel - Serum or Plasm a glucose [mass/volume ] in serum or plasma 97 mg/dL low: 74mg/d Lhigh: 99mg/d L GLUCO SE 97 74 - 99 mg/dL 05/30 4:26 PM CDT [facility] Not Available Not Available 12/19/2024 15:49:16 05/30/20 24 05/30/2024 Compr ehens andrew metab olic 1999 panel - Serum or Plasm a total protein 7.2 g/dL low: 6.7g/d Lhigh: 8.6g/d L TOTAL PROTE IN 7.2 6.7 - 8.6 g/dL 05/30 4:26 PM CDT [facility] Not Available Not Available 12/19/2024 15:49:16 05/30/20 24 05/30/2024 Compr ehens andrew metab olic 1999 panel - Serum or Plasm a albumin 4 g/dL low: 3.5g/d Lhigh: 5.2g/d L ALBUM IN 4.0 3.5 - 5.2 g/dL 05/30 4:26 PM CDT [facility] Not Available Not Available 12/19/2024 15:49:16 05/30/20 24 05/30/2024 Compr ehens andrew metab olic 1999 panel - Serum or Plasm a bilirubin total 0.5 mg/dL low: 0.3mg/ dLhigh : 1.2mg/ dL BILIR UBIN TOTAL 0.5 0.3 - 1.2 mg/dL 05/30 4:26 PM CDT [facility] Not Available Not Available 12/19/2024 15:49:16 05/30/20 24 05/30/2024 Compr ehens andrew metab olic 1999 panel - Serum or Plasm a alkaline phosphatase 314 U/L low: 40U/Lh igh: 129U/L high ALKAL INE PHOSP HATAS E 314 (H) 40 - 129 U/L 05/30 4:26 PM CDT [facility] Not Available Not Available 12/19/2024 15:49:16 05/30/20 24 05/30/2024 Compr ehens andrew metab olic 1999 panel - Serum or Plasm a AST 39 U/L high: 41U/L AST 39 <41 U/L 05/30 4:26 PM CDT [facility] Not Available Not Available 12/19/2024 15:49:16 05/30/20 24 05/30/2024 Compr ehens andrew metab olic 1999 panel - Serum or Plasm a alanine aminotransfe rase [enzymatic activity/vol ume] in blood 61 U/L high: 42U/L high ALT 61 (H) <42 U/L 05/30 4:26 PM CDT [facility] [facility] Not Available Not Available 12/19/2024 15:49:16 05/30/20 24 05/30/2024 Compr ehens andrew metab olic 1999 panel - Serum or Plasm a glomerular filtration rate/1.73 sq M.predicted [volume rate/area] in serum, plasma or blood by creatinine-b ased formula (CKD-epi 2020) text: >=60 mL/min /1.73 sq meter GFR >60 >=60 mL/mi n/1.7 3 sq meter 05/30 4:26 PM CDT [facility] Not Available Not Available 12/19/2024 15:49:16 05/30/20 24 05/30/2024 Compr ehens andrew metab olic 2000 panel - Serum or Plasm a anion gap 12 mmol/ L low: 8mmol/ Lhigh: 16mmol /L ANION GAP 12 8 - 16 mmol/ L 05/30 4:26 PM CDT [employer] [facility] Not Available Not Available 12/19/2024 15:49:16 05/30/20 24 05/30/2024 Compr ehens andrew metab olic 2000 panel - Serum or Plasm a Unknown Analyte Sample s contai zion indocy anine green cause interf erence s on Total and/or Direct Biliru bin and must not be measur ed. Sampl es conta ining indoc henrique e green cause inter feren kristina on Total and/o r Direc t Bilir ubin and must not be measu red. Not Available Not Available 12/19/2024 15:49:16 05/30/20 24 05/30/2024 Compr ehens andrew metab olic 2000 panel - Serum or Plasm a interpretati on and review of laboratory results Abnorm al Not Available Not Available 15:49:16 08/08/20 24 08/08/2024 CBC W Auto Diffe renti al panel - Blood leukocytes [#/volume] in blood 6.5 K/uL low: 4K/uLh igh: 9.8K/u L WBC 6.5 4.0 - 9.8 K/uL 08/08 7:09 AM [facility] Not Available Not Available 12/09/2024 03:37:01 08/08/2008/08/2024 CBC W Auto Diffe renti al panel - Blood RBC 5.17 text: 4.50 - 5.40 M/uL RBC 5.17 4.50 - 5.40 M/uL 08/08 7:09 AM [facility] Not Available Not Available 12/09/2024 03:37:01 08/08/2008/08/2024 CBC W Auto Diffe renti al panel - Blood hemoglobin 16 g/dL low: 13.6g/ dLhigh : 16.5g/ dL HEMOG LOBIN 16.0 13.6 - 16.5 g/dL 08/08 7:09 AM [facility] Not Available Not Available 12/09/2024 03:37:01 08/08/2008/08/2024 CBC W Auto Diffe renti al panel - Blood hematocrit [volume fraction] of blood by automated count 46.4 % low: 40%hig h: 48% HEMAT OCRIT 46.4 40.0 - 48.0 % 08/08 7:09 AM [facility] Not Available Not Available 12/09/2024 03:37:01 08/08/2008/08/2024 CBC W Auto Diffe renti al panel - Blood MCV 89.7 fL low: 82fLhi gh: 99fL MCV 89.7 82.0 - 99.0 fL 08/08 7:09 AM [facility] Not Available Not Available 12/09/2024 03:37:01 08/08/2008/08/2024 CBC W Auto Diffe renti al panel - Blood MCH 30.9 pg low: 27.2pg high: 32.6pg MCH 30.9 27.2 - 32.6 pg 08/08 7:09 AM [facility] Not Available Not Available 12/09/2024 03:37:01 08/08/2008/08/2024 CBC W Auto Diffe renti al panel - Blood MCHC 34.5 g/dL low: 31.5g/ dLhigh : 35.5g/ dL MCHC 34.5 31.5 - 35.5 g/dL 08/08 7:09 AM [facility] Not Available Not Available 12/09/2024 03:37:01 08/08/2008/08/2024 CBC W Auto Diffe renti al panel - Blood RDW 11.9 % low: 11.5%h igh: 14.5% RDW 11.9 11.5 - 14.5 % 08/08 7:09 AM [facility] Not Available Not Available 12/09/2024 03:37:01 08/08/2008/08/2024 CBC W Auto Diffe renti al panel - Blood RDW-stdev 39.3 fL low: 37.1fL high: 48.7fL RDW-S TDEV 39.3 37.1 - 48.7 fL 08/08 7:09 AM [facility] Not Available Not Available 12/09/2024 03:37:01 08/08/2008/08/2024 CBC W Auto Diffe renti al panel - Blood platelets [#/volume] in blood by automated count 201 K/uL low: 140K/u Lhigh: 350K/u L PLATE LETS 201 140 - 350 K/uL 08/08 7:09 AM [facility] Not Available Not Available 12/09/2024 03:37:01 08/08/2008/08/2024 CBC W Auto Diffe renti al panel - Blood MPV 11.8 fL low: 9.3fLh igh: 12.4fL MPV 11.8 9.3 - 12.4 fL 08/08 7:09 AM [facility] Not Available Not Available 12/09/2024 03:37:01 08/08/20 24 08/08/2024 CBC W Auto Diffe renti al panel - Blood neutrophils 64 % NEUTR OPHIL S 64 % 08/08 7:09 AM [facility] Not Available Not Available 12/09/2024 03:37:01 08/08/2008/08/2024 CBC W Auto Diffe renti al panel - Blood lymphocytes/ 100 leukocytes in blood by automated count 25 % LYMPH OCYTE S 25 % 08/08 7:09 AM T [facility] Not Available Not Available 12/09/2024 03:37:01 08/08/2008/08/2024 CBC W Auto Diffe renti al panel - Blood monocytes 9 % MONOC YTES 9 % 08/08 7:09 AM [facility] Not Available Not Available 12/09/2024 03:37:01 08/08/2008/08/2024 CBC W Auto Diffe renti al panel - Blood eosinophils 2 % EOSIN OPHIL S 2 % 08/08 7:09 AM [facility] Not Available Not Available 12/09/2024 03:37:01 08/08/2008/08/2024 CBC W Auto Diffe renti al panel - Blood basophils 1 % BASOP HILS 1 % 08/08 7:09 AM [facility] Not Available Not Available 12/09/2024 03:37:01 08/08/2008/08/2024 CBC W Auto Diffe renti al panel - Blood immature granulocytes 1 % IMMAT URE GRANU LOCYT ES 1 % 08/08 7:09 AM [facility] Not Available Not Available 12/09/2024 03:37:01 08/08/20 24 08/08/2024 CBC W Auto Diffe renti al panel - Blood neutrophils [#/volume] in blood by automated count 4.11 K/uL low: 1.9K/u Lhigh: 7K/uL NEUTR OPHIL ABSOL [place] 4.11 1.90 - 7.00 K/uL 08/08 7:09 AM [facility] Not Available Not Available 12/09/2024 03:37:01 08/08/20 24 08/08/2024 CBC W Auto Diffe renti al panel - Blood lymphocyte absolute 1.59 K/uL low: 0.7K/u Lhigh: 4.5K/u L LYMPH OCYTE ABSOL [place] 1.59 0.70 - 4.50 K/uL 08/08 7:09 AM [facility] Not Available Not Available 12/09/2024 03:37:01 08/08/2008/08/2024 CBC W Auto Diffe renti al panel - Blood monocyte absolute 0.56 K/uL low: 0.1K/u Lhigh: 1.3K/u L MONOC YTE ABSOL [place] 0.56 0.10 - 1.30 K/uL 08/08 7:09 AM [facility] Not Available Not Available 12/09/2024 03:37:01 08/08/2008/08/2024 CBC W Auto Diffe renti al panel - Blood eosinophil absolute 0.11 K/uL low: 0K/uLh igh: 0.7K/u L EOSIN OPHIL ABSOL [place] 0.11 0.00 - 0.70 K/uL 08/08 7:09 AM [facility] Not Available Not Available 12/09/2024 03:37:01 08/08/20 24 08/08/2024 CBC W Auto Diffe renti al panel - Blood basophils absolute 0.05 K/uL low: 0K/uLh igh: 0.2K/u L BASOP HILS ABSOL [place] 0.05 0.00 - 0.20 K/uL 08/08 7:09 AM [facility] Not Available Not Available 12/09/2024 03:37:01 08/08/2008/08/2024 CBC W Auto Diffe renti al panel - Blood immature granulocytes absolute 0.03 K/uL low: 0K/uLh igh: 0.03K/ uL IMMAT URE GRANU LOCYT ES ABSOL [place] 0.03 0.00 - 0.03 K/uL 08/08 7:09 AM CDT [facility] [facility] Not Available Not Available 12/09/2024 03:37:01 09/09/20 24 09/09/2024 HbA1c (hemo globi n A1c), blood HbA1c 6.3 Not Available In-Office Order Internal Use Only DO Not Attach Compendium DO Not Attach Compendium, Do Not Delete/merge, [id number] 09/09/2024 16:15:39 12/18/1912/17/2024 Compr ehens andrew metab olic 1999 panel - Serum or Plasm a sodium [moles/volum e] in serum or plasma 139 mmol/ L low: 136mmo l/Lhig h: 145mmo l/L SODIU M 139 136 - 145 mmol/ L 12/17 9:38 AM COMPLEX CASE [employer] [facility] Not Available Not Available 12/19/2024 15:49:21 12/18/1912/17/2024 Compr ehens andrew metab olic 1999 panel - Serum or Plasm a potassium [moles/volum e] in serum or plasma 4.2 mmol/ L low: 3.4mmo l/Lhig h: 5.1mmo l/L POTAS SIUM 4.2 3.4 - 5.1 mmol/ L 12/17 9:38 AM COMPLEX CASE MANAGER [facility] Not Available Not Available 12/19/2024 15:49:21 12/18/19 25 12/17/2024 Compr ehens andrew metab olic 1999 panel - Serum or Plasm a chloride 103 mmol/ L low: 98mmol /Lhigh : 107mmo l/L CHLOR GUSTAVO 103 98 - 107 mmol/ L 12/17 9:38 AM COMPLEX CASE MANAGER [facility] Not Available Not Available 12/19/2024 15:49:21 12/18/19 25 12/17/2024 Compr ehens andrew metab olic 1999 panel - Serum or Plasm a carbon dioxide, total [moles/volum e] in serum or plasma 23 mmol/ L low: 22mmol /Lhigh : 29mmol /L CO2 23 22 - 29 mmol/ L 12/17 9:38 AM [employer] Not Available Not Available 12/19/2024 15:49:21 12/18/19 25 12/17/2024 Compr ehens andrew metab olic 1999 panel - Serum or Plasm a calcium 9.9 mg/dL low: 8.6mg/ dLhigh : 10.4mg /dL CALCI UM 9.9 8.6 - 10.4 mg/dL 12/17 9:38 AM [employer] [facility] Not Available Not Available 12/19/2024 15:49:21 12/18/19 25 12/17/2024 Compr ehens andrew metab olic 1999 panel - Serum or Plasm a BUN 22 mg/dL low: 6mg/dL high: 20mg/d L high BUN 22 (H) 6 - 20 mg/dL 12/17 9:38 AM [employer] [facility] Not Available Not Available 12/19/2024 15:49:21 12/18/19 25 12/17/2024 Compr ehens andrew metab olic 1999 panel - Serum or Plasm a creatinine [mass/volume ] in serum or plasma 0.63 mg/dL low: 0.67mg /dLhig h: 1.17mg /dL low CREAT ININE 0.63 (L) 0.67 - 1.17 mg/dL 12/17 9:38 AM [employer] [facility] Not Available Not Available 12/19/2024 15:49:21 12/18/19 25 12/17/2024 Compr ehens andrew metab olic 1999 panel - Serum or Plasm a glucose [mass/volume ] in serum or plasma 95 mg/dL low: 74mg/d Lhigh: 99mg/d L GLUCO SE 95 74 - 99 mg/dL 12/17 9:38 AM [employer] Not Available Not Available 12/19/2024 15:49:21 12/18/19 25 12/17/2024 Compr ehens andrew metab olic 1999 panel - Serum or Plasm a total protein 8.3 g/dL low: 6.3g/d Lhigh: 8.7g/d L TOTAL PROTE IN 8.3 6.3 - 8.7 g/dL 12/17 9:38 AM [facility] [employer] [facility] Not Available Not Available 12/19/2024 15:49:21 12/18/19 25 12/17/2024 Compr ehens andrew metab olic 1999 panel - Serum or Plasm a albumin 4.5 g/dL low: 3.5g/d Lhigh: 5.2g/d L ALBUM IN 4.5 3.5 - 5.2 g/dL 12/17 9:38 AM [facility] Not Available Not Available 12/19/2024 15:49:21 12/18/19 25 12/17/2024 Compr ehens andrew metab olic 1999 panel - Serum or Plasm a bilirubin total 0.3 mg/dL low: 0.3mg/ dLhigh : 1.2mg/ dL BILIR UBIN TOTAL 0.3 0.3 - 1.2 mg/dL 12/17 9:38 AM COMPLEX CASE MANAGER [facility] Not Available Not Available 12/19/2024 15:49:21 12/18/19 25 12/17/2024 Compr ehens andrew metab olic 1999 panel - Serum or Plasm a alkaline phosphatase 99 U/L low: 40U/Lh igh: 150U/L ALKAL INE PHOSP HATAS E 99 40 - 150 U/L 12/17 9:38 AM COMPLEX CASE MANAGER [employer] [facility] Not Available Not Available 12/19/2024 15:49:21 12/18/19 25 12/17/2024 Compr ehens andrew metab olic 2000 panel - Serum or Plasm a AST 34 U/L low: 0U/Lhi gh: 41U/L AST 34 0 - 41 U/L 12/17 9:38 AM [employer] [facility] Not Available Not Available 12/19/2024 15:49:21 12/18/19 25 12/17/2024 Compr ehens andrew metab olic 1999 panel - Serum or Plasm a alanine aminotransfe rase [enzymatic activity/vol ume] in blood 43 U/L low: 0U/Lhi gh: 41U/L high ALT 43 (H) 0 - 41 U/L 12/17 9:38 AM [employer] [facility] Not Available Not Available 12/19/2024 15:49:21 12/18/19 25 12/17/2024 Compr ehens andrew metab olic 1999 panel - Serum or Plasm a glomerular filtration rate/1.73 sq M.predicted [volume rate/area] in serum, plasma or blood by creatinine-b ased formula (CKD-epi 2020) text: >=60 mL/min /1.73 sq meter GFR >60 >=60 mL/mi n/1.7 3 sq meter 12/17 9:38 AM [employer] [facility] Not Available Not Available 12/19/2024 15:49:21 12/18/19 25 12/17/2024 Compr ehens andrew metab olic 1999 panel - Serum or Plasm a anion gap 13 mmol/ L low: 8mmol/ Lhigh: 16mmol /L ANION GAP 13 8 - 16 mmol/ L 12/17 9:38 AM [employer] [facility] Not Available Not Available 12/19/2024 15:49:21 12/18/19 25 12/17/2024 Compr ehens andrew metab olic 1999 panel - Serum or Plasm a interpretati on and review of laboratory results Abnorm al Not Available Not Available 15:49:21 12/18/19 25 12/17/2024 CBC W Auto Diffe renti al panel - Blood leukocytes [#/volume] in blood 7.1 K/uL low: 4K/uLh igh: 9.8K/u L WBC 7.1 4.0 - 9.8 K/uL 12/17 9:13 AM [employer] [facility] Not Available Not Available 12/19/2024 15:49:21 12/18/19 25 12/17/2024 CBC W Auto Diffe renti al panel - Blood RBC 4.86 text: 4.50 - 5.40 M/uL RBC 4.86 4.50 - 5.40 M/uL 12/17 9:13 AM [employer] [facility] Not Available Not Available 12/19/2024 15:49:21 12/18/19 25 12/17/2024 CBC W Auto Diffe renti al panel - Blood hemoglobin 16 g/dL low: 13.6g/ dLhigh : 16.5g/ dL HEMOG LOBIN 16.0 13.6 - 16.5 g/dL 12/17 9:13 AM [employer] [facility] Not Available Not Available 12/19/2024 15:49:21 12/18/19 25 12/17/2024 CBC W Auto Diffe renti al panel - Blood hematocrit [volume fraction] of blood by automated count 45.9 % low: 40%hig h: 48% HEMAT OCRIT 45.9 40.0 - 48.0 % 12/17 9:13 AM [employer] [facility] Not Available Not Available 12/19/2024 15:49:21 12/18/19 25 12/17/2024 CBC W Auto Diffe renti al panel - Blood MCV 94.4 fL low: 82fLhi gh: 99fL MCV 94.4 82.0 - 99.0 fL 12/17 9:13 AM [employer] [facility] Not Available Not Available 12/19/2024 15:49:21 12/18/19 25 12/17/2024 CBC W Auto Diffe renti al panel - Blood MCH 32.9 pg low: 27.2pg high: 32.6pg high MCH 32.9 (H) 27.2 - 32.6 pg 12/17 9:13 AM [employer] [facility] Not Available Not Available 12/19/2024 15:49:21 12/18/19 25 12/17/2024 CBC W Auto Diffe renti al panel - Blood MCHC 34.9 g/dL low: 31.5g/ dLhigh : 35.5g/ dL MCHC 34.9 31.5 - 35.5 g/dL 12/17 9:13 AM [employer] [facility] Not Available Not Available 12/19/2024 15:49:21 12/18/19 25 12/17/2024 CBC W Auto Diffe renti al panel - Blood RDW 12.8 % low: 11.5%h igh: 14.5% RDW 12.8 11.5 - 14.5 % 12/17 9:13 AM [employer] [facility] Not Available Not Available 12/19/2024 15:49:21 12/18/19 25 12/17/2024 CBC W Auto Diffe renti al panel - Blood RDW-stdev 44.6 fL low: 37.1fL high: 48.7fL RDW-S TDEV 44.6 37.1 - 48.7 fL 12/17 9:13 AM [employer] [facility] Not Available Not Available 12/19/2024 15:49:21 12/18/19 25 12/17/2024 CBC W Auto Diffe renti al panel - Blood platelets [#/volume] in blood by automated count 208 K/uL low: 140K/u Lhigh: 350K/u L PLATE LETS 208 140 - 350 K/uL 12/17 9:13 AM [employer] [facility] Not Available Not Available 12/19/2024 15:49:21 12/18/19 25 12/17/2024 CBC W Auto Diffe renti al panel - Blood MPV 10.1 fL low: 9.3fLh igh: 12.4fL MPV 10.1 9.3 - 12.4 fL 12/17 9:13 AM [employer] [facility] Not Available Not Available 12/19/2024 15:49:21 12/18/19 25 12/17/2024 CBC W Auto Diffe renti al panel - Blood neutrophils 67 % NEUTR OPHIL S 67 % 12/17 9:13 AM [employer] [facility] Not Available Not Available 12/19/2024 15:49:21 12/18/19 25 12/17/2024 CBC W Auto Diffe renti al panel - Blood lymphocytes/ 100 leukocytes in blood by automated count 19 % LYMPH OCYTE S 19 % 12/17 9:13 AM [employer] [facility] Not Available Not Available 12/19/2024 15:49:21 12/18/19 25 12/17/2024 CBC W Auto Diffe renti al panel - Blood monocytes 13 % MONOC YTES 13 % 12/17 9:13 AM [employer] [facility] Not Available Not Available 12/19/2024 15:49:21 12/18/19 25 12/17/2024 CBC W Auto Diffe renti al panel - Blood eosinophils 0 % EOSIN OPHIL S 0 % 12/17 9:13 AM [employer] [facility] Not Available Not Available 12/19/2024 15:49:21 12/18/19 25 12/17/2024 CBC W Auto Diffe renti al panel - Blood basophils 1 % BASOP HILS 1 % 12/17 9:13 AM [employer] [facility] Not Available Not Available 12/19/2024 15:49:21 12/18/19 25 12/17/2024 CBC W Auto Diffe renti al panel - Blood immature granulocytes 1 % IMMAT URE GRANU LOCYT ES 1 % 12/17 9:13 AM [employer] [facility] Not Available Not Available 12/19/2024 15:49:21 12/18/19 25 12/17/2024 CBC W Auto Diffe renti al panel - Blood neutrophils [#/volume] in blood by automated count 4.74 K/uL low: 1.9K/u Lhigh: 7K/uL NEUTR OPHIL ABSOL [place] 4.74 1.90 - 7.00 K/uL 12/17 9:13 AM [employer] [facility] Not Available Not Available 12/19/2024 15:49:21 12/18/19 25 12/17/2024 CBC W Auto Diffe renti al panel - Blood lymphocyte absolute 1.33 K/uL low: 0.7K/u Lhigh: 4.5K/u L LYMPH OCYTE ABSOL [place] 1.33 0.70 - 4.50 K/uL 12/17 9:13 AM COMPLEX CASE MANAGER [employer] [facility] Not Available Not Available 12/19/2024 15:49:21 12/18/19 25 12/17/2024 CBC W Auto Diffe renti al panel - Blood monocyte absolute 0.91 K/uL low: 0.1K/u Lhigh: 1.3K/u L MONOC YTE ABSOL [place] 0.91 0.10 - 1.30 K/uL 12/17 9:13 AM COMPLEX CASE MANAGER [employer] [facility] Not Available Not Available 12/19/2024 15:49:21 12/18/19 25 12/17/2024 CBC W Auto Diffe renti al panel - Blood eosinophil absolute 0.02 K/uL low: 0K/uLh igh: 0.7K/u L EOSIN OPHIL ABSOL [place] 0.02 0.00 - 0.70 K/uL 12/17 9:13 AM [employer] [facility] Not Available Not Available 12/19/2024 15:49:21 12/18/19 25 12/17/2024 CBC W Auto Diffe renti al panel - Blood basophils absolute 0.04 K/uL low: 0K/uLh igh: 0.2K/u L BASOP HILS ABSOL [place] 0.04 0.00 - 0.20 K/uL 12/17 9:13 AM [employer] [facility] Not Available Not Available 12/19/2024 15:49:21 12/18/19 25 12/17/2024 CBC W Auto Diffe renti al panel - Blood immature granulocytes absolute 0.04 K/uL low: 0K/uLh igh: 0.03K/ uL high IMMAT URE GRANU LOCYT ES ABSOL [place] 0.04 (H) 0.00 - 0.03 K/uL 12/17 9:13 AM [employer] [employer] [facility] [employer] [facility] Not Available Not Available 12/19/2024 15:49:21 12/18/19 25 12/17/2024 CBC W Auto Diffe rentony al panel - Blood interpretati on and review of laboratory results Abnorm al Not Available Not Available 15:49:21 12/21/19 25 12/20/2024 Basic metab olic 1999 panel - Serum or Plasm a sodium [moles/volum e] in serum or plasma 143 mmol/ L low: 136mmo l/Lhig h: 145mmo l/L SODIU M 143 136 - 145 mmol/ L 12/20 6:33 PM [employer] [facility] Not Available Not Available 12/27/2024 12:44:41 12/21/19 25 12/20/2024 Basic metab olic 1999 panel - Serum or Plasm a potassium [moles/volum e] in serum or plasma 4.5 mmol/ L low: 3.4mmo l/Lhig h: 5.1mmo l/L POTAS SIUM 4.5 3.4 - 5.1 mmol/ L 12/20 6:33 PM [employer] [facility] Not Available Not Available 12/27/2024 12:44:41 12/21/19 25 12/20/2024 Basic metab olic 2000 panel - Serum or Plasm a chloride 109 mmol/ L low: 98mmol /Lhigh : 107mmo l/L high CHLOR GUSTAVO 109 (H) 98 - 107 mmol/ L 12/20 6:33 PM [employer] [facility] Not Available Not Available 12/27/2024 12:44:41 12/21/19 25 12/20/2024 Basic metab olic 1999 panel - Serum or Plasm a carbon dioxide, total [moles/volum e] in serum or plasma 19 mmol/ L low: 22mmol /Lhigh : 29mmol /L low CO2 19 (L) 22 - 29 mmol/ L 12/20 6:33 PM [employer] [facility] Not Available Not Available 12/27/2024 12:44:41 12/21/19 25 12/20/2024 Basic metab olic 1999 panel - Serum or Plasm a calcium 8.2 mg/dL low: 8.6mg/ dLhigh : 10.4mg /dL low CALCI UM 8.2 (L) 8.6 - 10.4 mg/dL 12/20 6:33 PM [employer] [facility] Not Available Not Available 12/27/2024 12:44:41 12/21/19 25 12/20/2024 Basic metab olic 1999 panel - Serum or Plasm a BUN 20 mg/dL low: 6mg/dL high: 20mg/d L BUN 20 6 - 20 mg/dL 12/20 6:33 PM [employer] [employer] [facility] Not Available Not Available 12/27/2024 12:44:41 12/21/19 25 12/20/2024 Basic metab olic 1999 panel - Serum or Plasm a creatinine [mass/volume ] in serum or plasma 0.95 mg/dL low: 0.67mg /dLhig h: 1.17mg /dL CREAT ININE 0.95 0.67 - 1.17 mg/dL 12/20 6:33 PM [employer] [facility] Not Available Not Available 12/27/2024 12:44:41 12/21/19 25 12/20/2024 Basic metab olic 2000 panel - Serum or Plasm a glucose [mass/volume ] in serum or plasma 175 mg/dL low: 74mg/d Lhigh: 99mg/d L high GLUCO SE 175 (H) 74 - 99 mg/dL 12/20 6:33 PM [employer] [facility] Not Available Not Available 12/27/2024 12:44:41 12/21/19 25 12/20/2024 Basic metab olic 2000 panel - Serum or Plasm a glomerular filtration rate/1.73 sq M.predicted [volume rate/area] in serum, plasma or blood by creatinine-b ased formula (CKD-epi 2020) text: >=60 mL/min /1.73 sq meter GFR >60 >=60 mL/mi n/1.7 3 sq meter 12/20 6:33 PM COMPLEX CASE MANAGER [facility]
[2025-02-27 14:05] LABS: Glucose Point of Care 99 mg/dl (65-105)
== END 2025-02-27 13:19 | disposition home or self-care (01) ==
PROVIDERS: PCP Internal Medicine; Visit Provider Radiology Radiation Oncology
DX: C25.9 Malignant neoplasm of pancreas, unspecified (principal)
CPT/HCPCS: 78815; A9552

== ENCOUNTER 2025-06-18 09:28 | Outpatient (CLI) | payer OTHER, SELFPAY ==
--- OUTSIDE RECORDS SUMMARY | 2025-06-18 10:05 | XMS_ITS | Clinical Summary ---
Author Organization [facility] Address [address] [place] [address] Phone Care Team Providers Care Plant Maintenance Worker Name Role Phone Mark Barrett MD Primary Care Provider [phone] Allergies No known active allergies Medications Insulin [place], Disposable, (Pau Pen Needle) 32 gauge x 5/32 Needle 1 Each by [facility].(Non-Drug; Combo Route) route 4 times daily before meals and at bedtime. 100 Each 2 4 5:31 PM CDT 05/22/20 24 Active Blood-Glucose Meter (True Metrix Glucose Meter) Use as directed 1 Each 4 2:37 PM CDT 05/22/20 24 Active prochlorperazine maleate (COMPAZINE) 10 mg tablet Take 1 Tablet (10 mg) by mouth every 6 hours as needed for Nausea/Emesis. 30 Tablet 1 08/23/20 24 Active HYDROcodone-acetam inophen (NORCO) 5-325 mg tabletIndications: Cancer of head of pancreas (CMS/HCC) Take 1 Tablet by mouth every 6 hours as needed for Moderate Pain. Max Daily Amount: 4 Tablets 20 Tablet 12/27/19 25 Active acetaminophen (TYLENOL) 325 mg tablet Take 2 Tablets (650 mg) by mouth every 6 hours as needed for Pain, Mild. 12/27/19 25 Active methocarbamoL (ROBAXIN) 750 mg tablet Take 1 Tablet (750 mg) by mouth every 8 hours as needed for Spasm. 12 Tablet 5 1:43 PM CDT 12/27/19 25 Active metoclopramide HCl (REGLAN) 10 mg tablet Take 1 Tablet (10 mg) by mouth 3 times daily before meals. 90 Tablet 5 1:43 PM CDT 12/27/19 25 Active pantoprazole (PROTONIX) 40 mg Tablet, Delayed Release (E.C.) TAKE 1 TABLET BY MOUTH DAILY BEFORE BREAKFAST FOR 14 DAYS 30 Tablet 2 04/16/20 25 Active capecitabine (XELODA) 150 mg tablet Take 8 Tablets (1,200 mg) by mouth 2 times daily with meals for 14 days on, 7 days off. Take with 1 other capecitabine prescription for 1,700 mg total. 224 Tablet 4 05/07/20 25 Active capecitabine (XELODA) 500 mg tablet Take 1 Tablet (500 mg) by mouth 2 times daily with meals for 14 days on, 7 days off. Take with 1 other capecitabine prescription for 1,700 mg total. 28 Tablet 4 05/07/20 25 Active lidocaine-prilocai ne (EMLA) 2.5-2.5 % CreamIndications:P rimary pancreatic adenocarcinoma (CMS/HCC) Apply a quarter size amount to port site 30 minutes before acces. 30 Gram 1 05/20/20 25 Active ondansetron (ZOFRAN ODT) 8 mg Tablet, Rapid DissolveIndication s:Primary pancreatic adenocarcinoma (CMS/HCC) Dissolve 1 tablet on top of tongue then swallow with saliva every 8 hours as needed for nausea or vomiting 30 Tablet 1 05/20/20 25 Active lidocaine-prilocai ne (EMLA) 2.5-2.5 % Cream Apply a quarter size amount to port site 30 minutes before acces. 30 Gram 1 08/19/20 24 025 Discontin ued(Reord er) Active Problems Problem Noted Date Diagnosed Date Protein-calorie malnutrition, moderate 5 Cancer of head of pancreas 12/11/2024 Diabetes mellitus, new onset 05/22/2024 Encounter for diabetes education 05/22/2024 Insulin dose changed 05/22/2024 Elevated LFTs 05/21/2024 Diabetic acidosis without coma 05/18/2024 Hypokalemia 05/18/2024 Pancreatic mass 05/18/2024 Type 1 diabetes mellitus with hyperglycemia 12/2023 Encounters Date Type Department Care Team Description 06/11/2025 Orders Only [facility] On[facility] and H[facility]ology - [place] [address] [place] [address] Bautista Meyer MD 06/09/2025 Orders Only [facility] On[facility] and Hematology - [place] [address] [place] [address] Bautista Meyer MD Primary pancreatic adenocarcinoma (CMS/HCC) 06/03/2025 Orders Only [facility] On[facility] and Hematology - [place] [address] [place] [address] Bautista Meyer MD 05/27/2025 9:15 AM CDT Office Visit [facility] On[facility] and Hematology - [place] [address] [place] [address] Bautista Meyer MD Primary pancreatic adenocarcinoma (CMS/HCC) (Primary Dx) 05/27/2025 Orders Only [facility] On[facility] and Hematology - [place] [address] [place] [address] Bautista Meyer MD 05/26/2025 Orders Only [facility] On[facility] and Hematology - [place] [address] [place] [address] Bautista Meyer MD Primary pancreatic adenocarcinoma (CMS/HCC) 05/21/2025 External Device Data STL ABSTRACTION Provider, Abstract 05/20/2025 Refill [facility] On[facility] and H[facility]ology - [place] [address] [place] [address] Bautista Meyer MD Primary pancreatic adenocarcinoma (CMS/HCC) (Primary Dx) 05/12/2025 Orders Only [facility] On[facility] and Hematology - [place] [address] [place] [address] Bautista Meyer MD Primary pancreatic adenocarcinoma (CMS/HCC) 05/08/2025 Refill [facility] On[facility] and Hematology - [place] [address] [place] [address] Bautista Meyer MD 05/08/2025 Orders Only [facility] On[facility] and Hematology - [place] [address] [place] [address] Bautitsa Meyer MD 05/07/2025 9:45 AM CDT Office Visit [facility] Oncology and Hematology [facility] [address] [place] [address] Bautista Meyer MD Primary pancreatic adenocarcinoma (CMS/HCC) (Primary Dx) 05/07/2025 Orders Only [facility] On[facility] and Hematology [facility] [address] [place] [address] Bautista Meyer MD 05/07/2025 Orders Only [facility] On[facility] and Hematology [facility] [address] [place] [address] Bautista Meyer MD 04/30/2025 External Device Data STL ABSTRACTION Provider, Abstract 04/30/2025 External Device Data STL ABSTRACTION Provider, Abstract 04/28/2025 Orders Only [facility] Oncology and [facility] [address] [place] [address] Bautista Meyer MD Primary pancreatic adenocarcinoma (CMS/HCC) 04/16/2025 Refill [facility] [address] [address] Tavia Galan PA-C 04/15/2025 Telephone [facility] On[facility] and Hematology [facility] [address] [place] [address] Bautista Meyer MD Medication Refill 04/15/2025 Refill [facility] On[facility] and Hematology [facility] [address] [place] [address] Bautista Meyer MD 04/14/2025 Orders Only [facility] On[facility] and Hematology - [place] [address] [place] [address] Bautista Meyer MD Primary pancreatic adenocarcinoma (CMS/HCC) 04/08/2025 10:15 AM CDT Office Visit [facility] On[facility] [address] [place] [address] Bautista Meyer MD Primary pancreatic adenocarcinoma (CMS/HCC) (Primary Dx) 04/08/2025 Orders Only [facility] [address] [place] [address] Bautista Meyer MD 04/04/2025 Telephone [facility] [address] [place] [address] Bautista Meyer MD missed radiation appointment; Missed Radiation Appointment 04/01/2025 External Device Data STL ABSTRACTION Provider, Abstract 03/31/2025 Orders Only [facility] Oncology [place] [address] [place] [address] Bautista Meyer MD Primary pancreatic adenocarcinoma (CMS/HCC) from Last 3 Months Family History Medical [...] Sign Reading Time Taken Comments Blood Pressure 128/79 05/27/2025 9:12 AM CDT Pulse 79 05/27/2025 9:12 AM CDT Temperature 36.6 C (97.9 F) 05/27/2025 9:12 AM CDT Respiratory Rate 16 05/27/2025 9:12 AM CDT Oxygen Saturation 97% 05/27/2025 9:12 AM CDT Inhaled Oxygen Concentration - - Weight 86.7 kg (191 lb 3.2 oz) 05/27/2025 9:12 A M CDT Height 180.3 cm (5' 11) 01/22/2025 2:14 PM CDT Body Mass Index 26.67 01/22/2025 2:14 PM CDT Plan of Treatment Upcoming Encounters Date Type Department Care Team (Late st Contact Info) Description 07/01/2025 9:00 AM CDT Office Visit [facility] Oncology and Hematology [facility] [address] [facility] [address] [place] [address] Bautista Meyer MD [address] [facility] [address] [place] [address] Health Maintenance Due Date Last [...] 2023 ZOSTER VACCINE (1 of 2) 2023 DIABETES HBA1C Q 6 MONTHS 11/18/2024 05/18/2024 INFLUENZA VACCINE (#1) 2025 Medical Devices Implanted Type Area Ethylbenzene Cracking Supervisor Device Identifier Shelf Expiration Date Model / Serial / Lot Clip Ligating Horizon Ti 24 [id number] - [id number] Implanted:Qt y: 1 on 12/20/2024 by Sahra Vaughan MD at [facility] N/A: Abdomen TELEFLEX- WECK CLOSURE SYS 06/26/2029 [id number] / / [id number] Clip Ligating Horizon Med Ti [id number] [place] [facility] [place] [id number] Implanted:Qt y: 1 on 12/20/2024 by Sahra Vaughan MD at [facility] N/A: Abdomen TELEFLEX- WECK CLOSURE SYS 05/20/2029 [id number] / / [id number] Clip Ligating Horizon Lrg Ti 10.07x12.38m m [id number] - Csc - [id number] Implanted:Qt y: 2 on 12/20/2024 by Sahra Vaughan MD at [facility] N/A: Abdomen TELEFLEX- WECK CLOSURE SYS 04/16/2029 [id number] / / [id number] Tube Feeding [place] 8fr 42in Rdpq 132133k - [id number] Implanted:Qt y: 1 on 12/20/2024 by Sahra Vaughan MD at [facility] Feeding Device N/A: Abdomen CARD[employer]AL HLTH 04/14/2028 [id number] / / [id number] Hemostat Surg Snow 2x4in 2081 - [id number] Implanted:Qt y: 4 on 12/20/2024 by Sahra Vaughan MD at [facility] Hemostatic N/A: Abdomen [employer] 07/15/2026 [id number] / / [id number]- 024 Implanted:Qt y: 1 on 08/08/2024 by Leroy Pedroza MD Port Right: Chest Wall [id number] / / [id number] Description:BARD ISP POWERPO RT IMPLANTED INTO RIGHT CHEST WALL ON 08/08/[address] PEDROZA. Stent Bili Wallflex Rx 10x40 [id number] - [id number] Implanted:Qt y: 1 on 05/21/2024 by Rico Amato MD at [facility] Stent [employer] [id number] 12/06/2025 [id number] / / [id number] Procedures Procedure Name Priority Date/Time Associated Diagnosis Comments BASIC METABOLIC PANEL Routine 06/10/2025 10:34 AM CDT COMPREHENSIVE METABOLIC PANEL Routine 06/10/2025 8:01 AM CDT BASIC METABOLIC PANEL Routine 06/03/2025 12:51 PM CDT COMPREHENSIVE METABOLIC PANEL Routine 06/03/2025 12:49 PM CDT BASIC METABOLIC PANEL Routine 05/27/2025 1:15 PM CDT COMPREHENSIVE METABOLIC PANEL Routine 05/27/2025 1:10 PM CDT CBC WITH DIFFERENTIAL Routine 05/07/2025 2:22 PM CDT BASIC METABOLIC PANEL Routine 05/07/2025 2:14 PM CDT COMPREHENSIVE METABOLIC PANEL Routine 05/07/2025 11:47 AM CDT CHG CA 19 9 Routine 05/07/2025 9:29 AM CDT BASIC METABOLIC PANEL Routine 04/08/2025 1:39 PM CDT CBC WITH DIFFERENTIAL Routine 04/08/2025 1:06 PM CDT HEMOGLOBIN A1C Routine 05/18/2024 2:39 AM CDT from Last 3 Months or Most Recently Relevant to Health Maintenance Results * BASIC METABOLIC PANEL (06/10/2025 10:34 AM CDT) Only the most recent of5 resultswithin the time period is included. Blood us Bautista Meyer MD CHEMISTRY ORDERABLES Final Resu lt * COMPREHENSIVE METABOLIC PANEL (06/10/2025 8:01 AM CDT) Only the most recent of4 resultswithin the time period is included. Blood us Bautista Meyer MD CHEMISTRY ORDERABLES Final Resu lt * CBC WITH DIFFERENTIAL (05/07/2025 2:22 PM CDT) Only the most recent of2 resultswithin the time period is included. Blood us Bautista Meyer MD HEMATOLOGY ORDERABLES Final Res ult * CHG CA 19 9 (05/07/2025 9:29 AM CDT) Bautista Meyer MD CHG - LABORATORY Final Result * (ABNORMAL) HEMOGLOBIN A1C (05/18/2024 2:39 AM CDT) HEMOGLOBIN A1C 14.1(H) <5.7 % 05/18/2024 3:13 AM CDT [facility] EST. AVG GLUCOSE, A1C 358 mg/dL 05/18/2024 3:13 AM CDT [facility] Blood Venipuncture / Unknown 05/18/2024 2:39 AM CDT 05/18/2024 2:47 AM CDT Narrative [facility] - 05/18/2024 3:13 AM CDT HGB A1C INTERPRETATION NORMAL: <5.7% PRE-DIABETES: 5.7 - 6.4% DIABETES: 6.5% OR GREATER Ameya Simons MD CHEMISTRY ORDERABLES Final Res ult [facility] [employer] [facility]# [id number] [address] [place] [address] from Last 3 Months or Most Recently Relevant to Health Maintenance Insurance RX [employer] (INTERNAL) [facility] RX [employer] CARE MANAGEMENT [facility] (INTERNAL) [facility] [employer] RX [employer] Commercial RX GENERIC COMMERCIAL Commercial [employer] [place] [employer] [address] [place] [employer] [place] Advance Directives For more information, please contact: [phone] * Full Code (Latest Code Status on File) Date Activated Date Inactivated Comments 12/20/2024 3:40 PM 12/26/2024 4:22 PM * Full Code Date Activated Date Inactivated Comments 12/20/2024 5:38 AM 12/20/2024 3:40 PM * Full Code Date Activated Date Inactivated Comments 05/18/2024 2:26 AM 05/22/2024 9:07 PM Care Teams Plant Maintenance Worker Relationship Specialty Start Date End Date Mark Barrett MD [address] [place] [address] PCP - General Internal Medicine 12/20/24 Dr Mark Barrett [id number] [place] [address] 12/11/24
--- OUTSIDE RECORDS SUMMARY | 2025-06-18 10:05 | XMS_ITS ---
Author Organization [facility] Address [address] [place] [address] Phone Care Team Providers Care Associate Professor Of Literacy Name Role Phone Mark Barrett MD Primary Care Provider [phone] Active Problems Problem Noted Date Diagnosed Date [...]
--- OUTSIDE RECORDS SUMMARY | 2025-06-18 10:05 | XMS_ITS | Encounter Summary ---
Author Organization [facility] [employer] [facility] Address [address] [place] [address] Care Team Providers Care Software Solutions Architect Name Role Phone Mark Barrett MD Primary Care Provider [phone] Encounter Details Date Type Department Care Team (Late Contact Info) Description 06/11/2025 Orders Only [facility] Oncology and Hematology - [place] [address] [facility] [address] [place] [address] Bautista Meyer MD [address] [facility] [address] [place] [address] Social History Tobacco Use Types Packs/Day Years [...] Encounters Date Type Department Care Team (Late Contact Info) Description 07/01/2025 9:00 AM CDT Office Visit [facility] Oncology and Hematology - [place] [address] [facility] [address] [place] [address] Bautista Meyer MD [address] [facility] [address] [place] [address] documented as of this encounter Procedures Procedure Name Priority Date/Time Associated Diagnosis Comments BASIC METABOLIC PANEL Routine 06/10/2025 10:34 AM CDT COMPREHENSIVE METABOLIC PANEL Routine 06/10/2025 8:01 AM CDT documented in this encounter Results * BASIC METABOLIC PANEL (06/10/2025 10:34 AM CDT) Blood Bautista Meyer MD CHEMISTRY ORDERABLES Final Resu lt * COMPREHENSIVE METABOLIC PANEL (06/10/2025 8:01 AM CDT) Blood Bautista Meyer MD CHEMISTRY ORDERABLES Final Resu lt documented in this encounter Visit Diagnoses Not on filedocumented in this encounter Care Teams Software Solutions Architect Relationship Specialty Start Date End Date Mark Barrett MD [address] [place] [address] PCP - General Internal Medicine 12/20/24 Dr Mark Barrett [address] [place] [address] 12/11/24 documented as of this encounter
[2025-06-18 10:44] LABS: Add Urine Microscopic? NO; Appearance Urine Clear (Clear); Glucose Urine UA Negative (Negative); Leukocyte Esterase Ur Negative LEU/UL (Negative); Nitrate Urine Negative (Negative); Specific Grav Ur 1.019 (1.001-1.035)
[2025-06-18 10:46] LABS: Cholesterol 104 mg/dL (0-200); HDL Direct 30 mg/dL; Triglycerides 178 mg/dL (<150)
[2025-06-18 11:36] LABS: Hemoglobin A1C 5.5 % (<5.7)
== END 2025-06-18 09:29 | disposition home or self-care (01) ==
PROVIDERS: PCP Internal Medicine; Visit Provider Internal Medicine
DX: Z00.00 Encounter for general adult medical examination without abnormal findings (principal); E11.9 Type 2 diabetes mellitus without complications; Z79.4 Long term (current) use of insulin
CPT/HCPCS: 36415; 80061; 81003; 83036

== ENCOUNTER 2025-08-21 08:52 | Outpatient (CLI) | payer OTHER, SELFPAY ==
--- NOTE | ~2025-08-21 | PE_ITS ---
EXAMINATION: PET skull to mid thigh DATE: 08/21/2025 11:03 INDICATION: Primary pancreatic adenocarcinoma TECHNIQUE: Blood glucose level was 101 mg/dL. 11.317 mCi of 18- fluorodeoxyglucose (18-FDG) was administered i.v. Low dose computed tomography (CT) images were acquired from the base of the brain to the proximal thighs for attenuation correction and anatomic localization. Positron emission tomography (PET) images were acquired in the same distribution beginning 58 minutes after injection. Images including fused PET/CT images were reconstructed in axial, coronal, and sagittal planes. Automated exposure control technique was employed. The dose-length product was 1109.31mGy-cm. COMPARISON: 02/27/2025 FINDINGS: Head/neck: There is symmetric increased activity in the oral cavity, palatine tonsils, laryngeal muscles and ocular muscles without CT correlate, likely physiologic. No pathologically enlarged cervical lymphadenopathy or suspicious foci of increased FDG uptake in the visualized head or neck. Chest: Right internal jugular central venous port catheter with distal tip near the superior cavoatrial junction. Mild emphysema. Calcified left lower lobe nodule along with calcified left hilar lymph nodes consistent with old granulomatous disease. No suspicious noncalcified pulmonary nodules, pneumonia, pulmonary edema or pleural effusion. Heart size is normal. Atherosclerotic coronary artery calcification. No pericardial effusion. Thoracic aorta is normal in caliber. No pathologically enlarged or FDG avid thoracic lymphadenopathy. Abdomen/pelvis/proximal thighs: Physiologic renal accumulation and excretion of FDG activity in the kidneys, bladder and along portions of ureters. Mild prostatomegaly measuring 4.4 x 3.4 cm. Postoperative change of prior Whipple procedure with resection of the gallbladder and head of the pancreas with pancreaticoduodenal anastomosis. Expected small amount of pneumobilia extending to the left hepatic lobe. Normal degree and heterogenous pattern of increased uptake throughout the liver without radiologic correlate or dominant FDG avid lesion. The spleen and bilateral adrenal glands are normal. Mild uptake scattered throughout the bowels without radiologic correlate, also likely physiologic. Small knuckle of nonobstructed bowel extends into a small umbilical hernia. No other abnormal foci of increased FDG uptake or pathologically enlarged lymphadenopathy in the abdomen, pelvis or proximal thighs. Musculoskeletal: Again seen is mild likely physiologic uptake in the musculature of the bilateral forearms. Likely degenerative uptake associated with severe facet osteoarthritis on the left at L5-S1. No suspicious lytic, blastic or other abnormally FDG avid bone lesions. IMPRESSION: 1. Postoperative change of prior Whipple procedure. No FDG avid lesion or pathologically enlarged lymphadenopathy suspicious for residual/recurrent or metastatic disease. Reviewed, dictated and finalized at location A. [facility] IMPRESSION: 1. Postoperative change of prior Whipple procedure. No FDG avid lesion or patho logically enlarged lymphadenopathy suspicious for residual/recurrent or metasta tic disease.
--- OUTSIDE RECORDS SUMMARY | 2025-08-21 17:39 | XMS_ITS ---
Author Organization [facility] Address [address] [place] [address] Phone Care Team Providers Care Flexographic Press Helper Name Role Phone Mark Barrett MD Primary Care Provider [phone] Active Problems Problem Noted Date Diagnosed Date [...]
--- OUTSIDE RECORDS SUMMARY | 2025-08-21 17:39 | XMS_ITS | Clinical Summary ---
Author Organization [facility] Address [address] [place] [address] Phone Care Team Providers Care Jeep Driver Name Role Phone Mark Barrett MD Primary Care Provider [phone] Allergies No known active allergies Medications Insulin [place], Disposable, (Pau Pen Needle) 32 gauge x 5/32 Needle 1 Each by [facility]Non-Drug; Combo Route) route 4 times daily before [...] 5 1:43 PM CDT 12/27/19 25 Active capecitabine (XELODA) 150 mg tablet [...] vomiting 30 Tablet 1 05/20/20 25 Active pantoprazole (PROTONIX) 40 mg Tablet, Delayed Release (E.C.) TAKE 1 TABLET BY MOUTH DAILY BEFORE BREAKFAST FOR 14 DAYS 30 Tablet 2 07/07/20 25 Active Active Problems Problem Noted Date Diagnosed Date Protein-calorie malnutrition, moderate 5 Cancer of head of pancreas 12/11/2024 Diabetes mellitus, new onset 05/22/2024 Encounter for diabetes education 05/22/2024 Insulin dose changed 05/22/2024 Elevated LFTs 05/21/2024 Diabetic acidosis without coma 05/18/2024 Hypokalemia 05/18/2024 Pancreatic mass 05/18/2024 Type 1 diabetes mellitus with hyperglycemia 12/2023 Encounters Date Type Department Care Team Description 08/18/2025 Chart Note [facility] [address] [facility] [address] [place] [address] Mayra Scott RN 08/18/2025 Orders Only [facility] Oncology and Hematology - [place] [address] [place] [address] Bautista Meyer MD Primary pancreatic adenocarcinoma (CMS/HCC) 08/13/2025 Orders Only [facility] Oncology and Hematology - [place] [address] [place] [phone] Bautista Meyer MD 08/12/2025 Orders Only [facility] Oncology and Hematology - [place] [address] [place] [phone] Bautista Meyer MD 08/06/2025 Orders Only [facility] Oncology and Hematology - [place] [address] [place] [phone] Bautista Meyer MD 08/06/2025 External Device Data STL ABSTRACTION Provider, Abstract 08/05/2025 9:45 AM CDT Office Visit [facility] Oncology and Hematology - [place] [address] [place] [phone] Bautista Meyer MD Primary pancreatic adenocarcinoma (CMS/HCC) (Primary Dx) 08/04/2025 Orders Only [facility] Oncology and Hematology - [place] [address] [place] [phone] Bautista Meyer MD Primary pancreatic adenocarcinoma (CMS/HCC) 07/30/2025 Orders Only [facility] Oncology and Hematology - [place] [address] [place] [address] Bautista Meyer MD 07/29/2025 External Device Data STL ABSTRACTION Provider, Abstract 07/29/2025 Orders Only [facility] Oncology and Hematology - [place] [address] [place] [phone] Bautista Meyer MD 07/21/2025 Orders Only [facility] Oncology and Hematology - [place] [address] [place] [address] Bautista Meyer MD Primary pancreatic adenocarcinoma (CMS/HCC) 07/17/2025 Orders Only [facility] Oncology and Hematology - [place] [address] [place] [address] Bautista Meyer MD 07/09/2025 Orders Only [facility] Oncology and Hematology - [place] [address] [place] [phone] Bautista Meyer MD 07/07/2025 [facility] [address] [address] Tavia Galan PA-C 07/07/2025 Orders Only [facility] Oncology and Hematology - [place] [address] [place] [address] Bautista Meyer MD Primary pancreatic adenocarcinoma (CMS/HCC) 07/01/2025 9:00 AM CDT Office Visit [facility] Oncology and Hematology - [place] [address] [place] [address] Bautista Meyer MD Primary pancreatic adenocarcinoma (CMS/HCC) (Primary Dx) 07/01/2025 External Device Data STL ABSTRACTION Provider, Abstract 07/01/2025 External Device Data STL ABSTRACTION Provider, Abstract 07/01/2025 Orders Only [facility] Oncology and Hematology - [place] [address] [place] [address] Bautista Meyer MD 06/23/2025 Orders Only [facility] Oncology and Hematology - [place] [address] [place] [address] Bautista Meyer MD Primary pancreatic adenocarcinoma (CMS/HCC) 06/18/2025 Orders Only [facility] Oncology and Hematology - [place] [address] [place] [address] Bautista Meyer MD 06/11/2025 Orders Only [facility] Oncology and Hematology - [place] [address] [place] [address] Bautista Meyer MD 06/09/2025 Orders Only [facility] Oncology and Hematology - [place] [address] [place] [address] Bautista Meyer MD Primary pancreatic adenocarcinoma (CMS/HCC) 06/03/2025 Orders Only [facility] Oncology and Hematology - [place] [address] [place] [address] Bautista Meyer MD 05/27/2025 9:15 AM CDT Office Visit [facility] Oncology and Hematology - [place] [address] [place] [address] Bautista Meyer MD Primary pancreatic adenocarcinoma (CMS/HCC) (Primary Dx) 05/27/2025 Orders Only [facility] Oncology and Hematology - [place] [address] [place] [address] Bautista Meyer MD 05/26/2025 Orders Only [facility] Oncology and Hematology - [place] [address] [place] [address] Bautista Meyer MD Primary pancreatic adenocarcinoma (CMS/HCC) 05/21/2025 External Device Data STL ABSTRACTION Provider, Abstract from Last 3 Months Family History Medical [...] Sign Reading Time Taken Comments Blood Pressure 137/83 08/05/2025 9:37 AM CDT Pulse 74 08/05/2025 9:36 AM CDT Temperature 36.9 C (98.4 F) 08/05/2025 9:36 AM CDT Respiratory Rate 16 08/05/2025 9:36 AM CDT Oxygen Saturation 98% 08/05/2025 9:36 AM CDT Inhaled Oxygen Concentration - - Weight 86.8 kg (191 lb 6.4 oz) 08/05/2025 9:36 A M CDT Height 180.3 cm (5' 11) 01/22/2025 2:14 PM CDT Body Mass Index 26.69 01/22/2025 2:14 PM CDT Plan of Treatment Upcoming Encounters Date Type Department Care Team (Late st Contact Info) Description 08/28/2025 9:00 AM MEDIA DEVELOPER Office Visit [facility] Oncology and Hematology - [place] [address] [place] [address] Jyotsna Terrazas MD [address] [place] [address] Health Maintenance Due Date Last [...] (#1) 2025 Medical Devices Implanted Type Area Traffic Survey Technician Device Identifier Shelf Expiration Date Model / Serial / Lot Clip Ligating Horizon Ti Sm 24 [id number] Rp - [id number] Implanted:Qt y: 1 on 12/20/2024 by Sahra Vaughan MD at [facility] N/A: Abdomen TELEFLEX- WECK CLOSURE SYS 06/26/2029 [id number] / / [id number] Clip Ligating Horizon Med Ti [id number] - Csc - [id number] Implanted:Qt y: 1 on 12/20/2024 by Sahra Vaughan MD at [facility] N/A: Abdomen TELEFLEX- WECK CLOSURE SYS 05/20/2029 [id number] / / [id number] Clip Ligating Horizon Lrg Ti 10.07x12.38m m 654853 - Csc - [id number] Implanted:Qt y: 2 on 12/20/2024 by Sahra Vaughan MD at [facility] N/A: Abdomen TELEFLEX- WECK CLOSURE SYS 04/16/2029 [id number] / / [id number] Tube Feeding [place] 8fr 42in Rdpq [id number] - [id number] Implanted:Qt y: 1 on 12/20/2024 by Sahra Vaughan MD at [facility] Feeding Device N/A: Abdomen CARDINAL HLTH 04/14/2028 [id number] / / [id number] Hemostat Surg Snow 2x4in 2081 - [id number] Implanted:Qt y: 4 on 12/20/2024 by Sahra Vaughan MD at [facility] Hemostatic N/A: Abdomen [employer]- [employer] 07/15/2026 2082 / / [id number]- [id number] Implanted:Qt y: 1 on 08/08/2024 by Leroy Pedroza MD Port Right: Chest Wall [id number] / / [id number] Description:BARD ISP POWERPO RT IMPLANTED INTO RIGHT CHEST WALL ON 08/08/[address] PEDROZA. Stent Bili Wallflex Rx 10x40 [id number] - [id number] Implanted:Qt y: 1 on 05/21/2024 by Rico Amato MD at [facility] SCI- ENDOSCOPY [id number] 12/06/2025 [id number] / / [id number] Procedures Procedure Name Priority Date/Time Associated Diagnosis Comments CBC WITH AUTODIFFERENTIAL Routine 08/12/2025 12:37 PM CDT COMPREHENSIVE METABOLIC PANEL Routine 08/12/2025 10:34 AM CDT COMPREHENSIVE METABOLIC PANEL Routine 08/05/2025 10:09 AM CDT COMPREHENSIVE METABOLIC PANEL Routine 07/29/2025 3:20 PM CDT CHG CA 19 9 Routine 07/29/2025 11:51 AM CDT COMPREHENSIVE METABOLIC PANEL Routine 07/15/2025 11:41 AM CDT COMPREHENSIVE METABOLIC PANEL Routine 07/08/2025 1:36 PM CDT BASIC METABOLIC PANEL Routine 07/01/2025 3:14 PM CDT COMPREHENSIVE METABOLIC PANEL Routine 07/01/2025 3:12 PM CDT BASIC METABOLIC PANEL Routine 06/18/2025 3:12 PM CDT COMPREHENSIVE METABOLIC PANEL Routine 06/18/2025 3:08 PM CDT BASIC METABOLIC PANEL Routine 06/10/2025 10:34 AM CDT COMPREHENSIVE METABOLIC PANEL Routine 06/10/2025 8:01 AM CDT BASIC METABOLIC PANEL Routine 06/03/2025 12:51 PM CDT COMPREHENSIVE METABOLIC PANEL Routine 06/03/2025 12:49 PM CDT BASIC METABOLIC PANEL Routine 05/27/2025 1:15 PM CDT COMPREHENSIVE METABOLIC PANEL Routine 05/27/2025 1:10 PM CDT HEMOGLOBIN A1C Routine 05/18/2024 2:39 AM CDT from Last 3 Months or Most Recently Relevant to Health Maintenance Results * CBC WITH AUTODIFFERENTIAL (08/12/2025 12:37 PM CDT) Blood Bautista Meyer MD HEMATOLOGY ORDERABLES Final Res ult * COMPREHENSIVE METABOLIC PANEL (08/12/2025 10:34 AM CDT) Only the most recent of10 resultswithin the time period is included. Blood Bautista Meyer MD CHEMISTRY ORDERABLES Final Resu lt * CHG CA 19 9 (07/29/2025 11:51 AM CDT) Bautista Meyer MD CHG - LABORATORY Final Result * BASIC METABOLIC PANEL (07/01/2025 3:14 PM CDT) Only the most recent of5 resultswithin the time period is included. Blood Bautista Meyer MD CHEMISTRY ORDERABLES Final Resu lt * (ABNORMAL) HEMOGLOBIN A1C (05/18/2024 2:39 AM CDT) HEMOGLOBIN A1C 14.1(H) <5.7 % 05/18/2024 3:13 AM CDT [facility] EST. AVG GLUCOSE, A1C 358 mg/dL 05/18/2024 3:13 AM CDT [facility] Blood Venipuncture / Unknown 05/18/2024 2:39 AM CDT 05/18/2024 2:47 AM CDT Narrative [facility] - 05/18/2024 3:13 AM CDT HGB A1C INTERPRETATION NORMAL: <5.7% PRE-DIABETES: 5.7 - 6.4% DIABETES: 6.5% OR GREATER Ameya Simons MD CHEMISTRY ORDERABLES Final Res ult [id number] [address] [place] [place] [address] from Last 3 Months or Most Recently Relevant to Health Maintenance Insurance RX [employer] (INTERNAL[facility] [employer] RX [employer] [facility] (INTERNAL) [facility] [employer] RX [employer] Commercial RX GENERIC COMMERCIAL Commercial [place] Advance Directives For more information, please contact: [phone] * Full Code (Latest Code Status on File) Date Activated Date Inactivated Comments 12/20/2024 3:40 PM 12/26/2024 4:22 PM * Full Code Date Activated Date Inactivated Comments 12/20/2024 5:38 AM 12/20/2024 3:40 PM * Full Code Date Activated Date Inactivated Comments 05/18/2024 2:26 AM 05/22/2024 9:07 PM Care Teams Jeep Driver Relationship Specialty Start Date End Date Mark Barrett MD [address] [place] [address] PCP - General Internal Medicine 12/20/24 Dr Mark Barrett [id number] [place] [address] 12/11/24
--- OUTSIDE RECORDS SUMMARY | 2025-08-21 17:39 | XMS_ITS | Encounter Summary ---
Author Organization [facility] Address [address] [place] [address] Care Team Providers Care Seasonal Greenery Bundler Name Role Phone Mark Barrett MD Primary Care Provider [phone] Encounter Details Date Type Department Care Team (Late Contact Info) Description 08/18/2025 Orders Only [facility] Oncology and Hematology - [place] [address] [facility] [address] [place] [address] Bautista Meyer MD [address] [facility] [address] [place] [address] Primary pancreatic adenocarcinoma (CMS/HCC) Social History Tobacco Use Types Packs/Day Years [...] st Contact Info) Description 08/28/2025 9:00 AM SENIOR SALES ASSISTANT Office Visit [facility] Oncology and Hematology [facility] [address] [place] [address] Jyotsna Terrazas MD [address] [facility] [address] [place] [address] documented as of this encounter Visit Diagnoses Diagnosis Primary pancreatic adenocarcinoma (CMS/HCC) Malignant neoplasm of pancreas, part unspecified documented in this encounter Care Teams Seasonal Greenery Bundler Relationship Specialty Start Date End Date Mark Barrett MD [address] [place] [address] PCP - General Internal Medicine 12/20/24 Dr Mark Barrett [id number] [place] [address] 12/11/24 documented as of this encounter
--- OUTSIDE RECORDS SUMMARY | 2025-08-21 17:40 | XMS_ITS | Data Portability ---
[facility] [address] [place] [address] Care Team Providers Care Piece Work Checker Name Role Phone FABIO BARRETT Primary Care Provider [phone] Assessment Encounter Date Assessment Date Assessment LastModified by Organization Details LastModified Time 08/01/2024 08/01/2024 continue with insulin following up with Heme-Onc for his presumed pancreatic cancer I have not had the pathology report officially and I do not have a note from Heme-Onc yet I will see him in a month [email or web address] Not available 08/19/2024 21:13:01 09/09/2024 09/09/2024 he will see me back in 2-3 months now he says he is just too busy with the chemo to go get an eye exam her foot exam and does not want to do colonoscopy at this time follow up with me in 2 months [email or web address] Not available 09/12/2024 14:30:18 12/19/2024 12/19/2024 follow up 2 months right now off of insulin as stated he is having Whipple tomorrow Not available 12/20/2024 06:56:30 02/13/2025 02/13/2025 Continue current therapy A1c today is 5.6 does not want to do any of his diabetic foot exam eye exam anything till he gets done with his radiation I will see him in 3 months does not want to start statin or anything like that yet [email or web address] Not available 02/13/2025 15:23:47 05/22/2025 05/22/2025 Initial impression type 1 DM autoantibodies we have not been able to get he has been off of insulin for some time now sugars have been fine he is reluctant to start because his sugars have been low in 100s we will obtain A1c lipid CMP CBC UA CR also try to obtain the blood work done at [facility] he will see me in 4 months [email or web address] Not available 05/25/2025 13:31:38 Plan of Treatment Reminders Order Date Submit Date Provider Last Modified By Organization Details Last Modified Time Details Appointments ANY 15 2024 02:15P M Fabio Barrett MD Not available Not available Not available Lab CBC w/ auto diff 2024 025 [facility], [address] [place] [address], [id number], 06/18/2025 12:40:26 CMP, serum or plasma 2024 025 [facility], [address] [place] [address], [id number], 06/18/2025 12:40:26 lipid panel, serum 2024 025 [facility], [address] [place] [address], [id number], 06/18/2025 12:41:24 HbA1c (hemoglob in A1c), blood 2024 025 [facility], [address] [place] [address], [id number], 06/18/2025 15:48:38 urinalysi s, complete [address] [place] [address], [id number], 06/18/2025 12:41:24 HbA1c (hemoglob in A1c), blood 2023 024 [email or web address] In-Office Order, Internal Use Only DO Not Attach Compendium DO Not Attach Compendium, Do Not Delete/merge, [id number] 09/09/2024 18:14:33 Referral None recorded. Procedures None recorded. Surgeries None recorded. Imaging None recorded. Medication Orders None recorded. Patient TargetsNo targets recorded. Patient Instructions Encounter Date Encounter Id Patient Instructions Last Modified By Organization Details Last Modified Time 09/09/2024 [id number] A healthy lifestyle: care instructions [email or web address] Not available 09/12/2024 14:30:33 02/13/2025 [id number] A healthy lifestyle: care instructions [email or web address] Not available 02/13/2025 17:37:53 Reason for Referral None Reported. Results Created Date Observation Date Name Description Value Unit Range Abnormal Flag Note LastModifiedBy Organization Detail LastModifiedTime 08/08/2008/08/2024 CBC W Auto Diffe renti al panel - Blood leukocytes [#/volume] in blood 6.5 K/uL low: 4K/uLh igh: 9.8K/u L WBC 6.5 4.0 - 9.8 K/uL 08/08 7:09 AM [facility] Not Available 12/09/2024 03:37:01 08/08/2008/08/2024 CBC W Auto Diffe renti al panel - Blood RBC 5.17 text: 4.50 - 5.40 M/uL RBC 5.17 4.50 - 5.40 M/uL 08/08 7:09 AM CDT [facility] Not [facility] Not Available 12/09/2024 03:37:01 08/08/2008/08/2024 CBC W Auto Diffe renti al panel - Blood hemoglobin 16 g/dL low: 13.6g/ dLhigh : 16.5g/ dL HEMOG LOBIN 16.0 13.6 - 16.5 g/dL 08/08 7:09 AM CD[facility] Not [facility] Not Available 12/09/2024 03:37:01 08/08/2008/08/2024 CBC W Auto Diffe renti al panel - Blood hematocrit [volume fraction] of blood by automated count 46.4 % low: 40%hig h: 48% HEMAT OCRIT 46.4 40.0 - 48.0 % 08/08 7:09 AM CD[facility] Not Available 12/09/2024 03:37:01 08/08/2008/08/2024 CBC W Auto Diffe renti al panel - Blood MCV 89.7 fL low: 82fLhi gh: 99fL MCV 89.7 82.0 - 99.0 fL 08/08 7:09 AM [facility] Not Available Not Available 12/09/2024 03:37:01 08/08/2008/08/2024 CBC W Auto Diffe renti al panel - Blood MCH 30.9 pg low: 27.2pg high: 32.6pg MCH 30.9 27.2 - 32.6 pg 08/08 7:09 AM [facility] Not Available Not Available 12/09/2024 03:37:01 08/08/2008/08/2024 CBC W Auto Diffe renti al panel - Blood MCHC 34.5 g/dL low: 31.5g/ dLhigh : 35.5g/ dL MCHC 34.5 31.5 - 35.5 g/dL 08/08 7:09 AM [facility] Not Available Not Available 12/09/2024 03:37:01 08/08/2008/08/2024 CBC W Auto Diffe renti al panel - Blood RDW 11.9 % low: 11.5%h igh: 14.5% RDW 11.9 11.5 - 14.5 % 08/08 7:09 AM [facility] Not Available Not Available 12/09/2024 03:37:01 08/08/2008/08/2024 CBC W Auto Diffe renti al panel - Blood RDW-stdev 39.3 fL low: 37.1fL high: 48.7fL RDW-S TDEV 39.3 37.1 - 48.7 fL 08/08 7:09 AM [facility] Not Available Not Available 12/09/2024 03:37:01 08/08/20 24 08/08/2024 CBC W Auto Diffe renti al panel - Blood platelets [#/volume] in blood by automated count 201 K/uL low: 140K/u Lhigh: 350K/u L PLATE LETS 201 140 - 350 K/uL 08/08 7:09 AM CDT [facility] Not Available Not Available 12/09/2024 03:37:01 08/08/2008/08/2024 CBC W Auto Diffe renti al panel - Blood MPV 11.8 fL low: 9.3fLh igh: 12.4fL MPV 11.8 9.3 - 12.4 fL 08/08 7:09 AM CDT [facility] Not Available Not Available 12/09/2024 03:37:01 08/08/2008/08/2024 CBC W Auto Diffe renti al panel - Blood neutrophils 64 % NEUTR OPHIL S 64 % 08/08 7:09 AM CDT [facility] Not Available Not Available 12/09/2024 03:37:01 08/08/2008/08/2024 CBC W Auto Diffe renti al panel - Blood lymphocytes/ 100 leukocytes in blood by automated count 25 % LYMPH OCYTE S 25 % 08/08 7:09 AM T [facility] Not Available Not Available 12/09/2024 03:37:01 08/08/2008/08/2024 CBC W Auto Diffe renti al panel - Blood monocytes 9 % MONOC YTES 9 % 08/08 7:09 AM [facility] Not Available Not Available 12/09/2024 03:37:01 08/08/2008/08/2024 CBC W Auto Diffe renti al panel - Blood eosinophils 2 % EOSIN OPHIL S 2 % 08/08 7:09 AM [facility] Not Available Not Available 12/09/2024 03:37:01 08/08/2008/08/2024 CBC W Auto Diffe renti al panel - Blood basophils 1 % BASOP HILS 1 % 08/08 7:09 AM T [facility] Not Available Not Available 12/09/2024 03:37:01 08/08/20 24 08/08/2024 CBC W Auto Diffe renti al panel - Blood immature granulocytes 1 % IMMAT URE GRANU LOCYT ES 1 % 08/08 7:09 AM [facility] Not Available Not Available 12/09/2024 03:37:01 08/08/20 24 08/08/2024 CBC W Auto Diffe renti al panel - Blood neutrophils [#/volume] in blood by automated count 4.11 K/uL low: 1.9K/u Lhigh: 7K/uL NEUTR OPHIL ABSOL PILOT STATION 4.11 1.90 - 7.00 K/uL 08/08 7:09 AM [facility] Not Available Not Available 12/09/2024 03:37:01 08/08/2008/08/2024 CBC W Auto Diffe renti al panel - Blood lymphocyte absolute 1.59 K/uL low: 0.7K/u Lhigh: 4.5K/u L LYMPH OCYTE ABSOL PILOT STATION 1.59 0.70 - 4.50 K/uL 08/08 7:09 AM [facility] Not Available Not Available 12/09/2024 03:37:01 08/08/20 24 08/08/2024 CBC W Auto Diffe renti al panel - Blood monocyte absolute 0.56 K/uL low: 0.1K/u Lhigh: 1.3K/u L MONOC YTE ABSOL PILOT STATION 0.56 0.10 - 1.30 K/uL 08/08 7:09 AM [facility] Not Available Not Available 12/09/2024 03:37:01 08/08/20 24 08/08/2024 CBC W Auto Diffe renti al panel - Blood eosinophil absolute 0.11 K/uL low: 0K/uLh igh: 0.7K/u L EOSIN OPHIL ABSOL PILOT STATION 0.11 0.00 - 0.70 K/uL 08/08 7:09 AM CDT [facility] Not Available Not Available 12/09/2024 03:37:01 08/08/20 24 08/08/2024 CBC W Auto Diffe renti al panel - Blood basophils absolute 0.05 K/uL low: 0K/uLh igh: 0.2K/u L BASOP HILS ABSOL PILOT STATION 0.05 0.00 - 0.20 K/uL 08/08 7:09 AM CDT [facility] Not Available Not Available 12/09/2024 03:37:01 08/08/20 24 08/08/2024 CBC W Auto Diffe renti al panel - Blood immature granulocytes absolute 0.03 K/uL low: 0K/uLh igh: 0.03K/ uL IMMAT URE GRANU LOCYT ES ABSOL PILOT STATION 0.03 0.00 - 0.03 K/uL 08/08 7:09 AM CDT [facility] Not Available Not Available 12/09/2024 03:37:01 09/09/2009/09/2024 HbA1c (hemo globi n A1c), blood HbA1c 6.3 Not Available In-Office Order Internal Use Only DO Not Attach Compendium DO Not Attach Compendium, Do Not Delete/merge, [id number] 09/09/2024 16:15:39 12/18/1912/17/2024 Compr ehens andrew metab olic 1999 panel - Serum or Plasm a sodium [moles/volum e] in serum or plasma 139 mmol/ L low: 136mmo l/Lhig h: 145mmo l/L SODIU M 139 136 - 145 mmol/ L 12/17 9:38 AM [facility] Not Available Not Available 12/19/2024 15:49:21 12/18/1912/17/2024 Compr ehens andrew metab olic 1999 panel - Serum or Plasm a potassium [moles/volum e] in serum or plasma 4.2 mmol/ L low: 3.4mmo l/Lhig h: 5.1mmo l/L POTAS SIUM 4.2 3.4 - 5.1 mmol/ L 12/17 9:38 AM [facility] Not Available Not Available 12/19/2024 15:49:21 12/18/19 25 12/17/2024 Compr ehens andrew metab olic 1999 panel - Serum or Plasm a chloride 103 mmol/ L low: 98mmol /Lhigh : 107mmo l/L CHLOR GUSTAVO 103 98 - 107 mmol/ L 12/17 9:38 AM REVIEW NURSE [email or web address] [facility] Not Available Not Available 12/19/2024 15:49:21 12/18/19 25 12/17/2024 Compr ehens andrew metab olic 1999 panel - Serum or Plasm a carbon dioxide, total [moles/volum e] in serum or plasma 23 mmol/ L low: 22mmol /Lhigh : 29mmol /L CO2 23 22 - 29 mmol/ L 12/17 9:38 AM REVIEW NURSE [email or web address] [facility] Not Available Not Available 12/19/2024 15:49:21 12/18/19 25 12/17/2024 Compr ehens andrew metab olic 1999 panel - Serum or Plasm a calcium 9.9 mg/dL low: 8.6mg/ dLhigh : 10.4mg /dL CALCI UM 9.9 8.6 - 10.4 mg/dL 12/17 9:38 AM [facility] Not Available Not Available 12/19/2024 15:49:21 12/18/19 25 12/17/2024 Compr ehens andrew metab olic 1999 panel - Serum or Plasm a BUN 22 mg/dL low: 6mg/dL high: 20mg/d L high BUN 22 (H) 6 - 20 mg/dL 12/17 9:38 AM [facility] Not Available Not Available 12/19/2024 15:49:21 12/18/19 25 12/17/2024 Compr ehens andrew metab olic 2000 panel - Serum or Plasm a creatinine [mass/volume ] in serum or plasma 0.63 mg/dL low: 0.67mg /dLhig h: 1.17mg /dL low CREAT ININE 0.63 (L) 0.67 - 1.17 mg/dL 12/17 9:38 AM [facility] Not Available Not Available 12/19/2024 15:49:21 12/18/19 25 12/17/2024 Compr ehens andrew metab olic 1999 panel - Serum or Plasm a glucose [mass/volume ] in serum or plasma 95 mg/dL low: 74mg/d Lhigh: 99mg/d L GLUCO SE 95 74 - 99 mg/dL 12/17 9:38 AM [facility] Not Available Not Available 12/19/2024 15:49:21 12/18/19 25 12/17/2024 Compr ehens andrew metab olic 1999 panel - Serum or Plasm a total protein 8.3 g/dL low: 6.3g/d Lhigh: 8.7g/d L TOTAL PROTE IN 8.3 6.3 - 8.7 g/dL 12/17 9:38 AM [facility] Not Available Not Available 12/19/2024 15:49:21 12/18/19 25 12/17/2024 Compr ehens andrew metab olic 1999 panel - Serum or Plasm a albumin 4.5 g/dL low: 3.5g/d Lhigh: 5.2g/d L ALBUM IN 4.5 3.5 - 5.2 g/dL 12/17 9:38 AM [facility] Not Available Not Available 12/19/2024 15:49:21 12/18/19 25 12/17/2024 Compr ehens andrew metab olic 2000 panel - Serum or Plasm a bilirubin total 0.3 mg/dL low: 0.3mg/ dLhigh : 1.2mg/ dL BILIR UBIN TOTAL 0.3 0.3 - 1.2 mg/dL 12/17 9:38 AM [facility] Not Available Not Available 12/19/2024 15:49:21 12/18/19 25 12/17/2024 Compr ehens andrew metab olic 2000 panel - Serum or Plasm a alkaline phosphatase 99 U/L low: 40U/Lh igh: 150U/L ALKAL INE PHOSP HATAS E 99 40 - 150 U/L 12/17 9:38 AM [facility] Not Available Not Available 12/19/2024 15:49:21 12/18/19 25 12/17/2024 Compr ehens andrew metab olic 1999 panel - Serum or Plasm a AST 34 U/L low: 0U/Lhi gh: 41U/L AST 34 0 - 41 U/L 12/17 9:38 AM [facility] Not Available Not Available 12/19/2024 15:49:21 12/18/19 25 12/17/2024 Compr ehens andrew metab olic 1999 panel - Serum or Plasm a alanine aminotransfe rase [enzymatic activity/vol ume] in blood 43 U/L low: 0U/Lhi gh: 41U/L high ALT 43 (H) 0 - 41 U/L 12/17 9:38 AM [facility] Not Available Not Available 12/19/2024 15:49:21 12/18/19 25 12/17/2024 Compr ehens andrew metab olic 1999 panel - Serum or Plasm a glomerular filtration rate/1.73 sq M.predicted [volume rate/area] in serum, plasma or blood by creatinine-b ased formula (CKD-epi 2020) text: >=60 mL/min /1.73 sq meter GFR >60 >=60 mL/mi n/1.7 3 sq meter 12/17 9:38 AM [facility] Not Available Not Available 12/19/2024 15:49:21 12/18/19 25 12/17/2024 Compr ehens andrew metab olic 1999 panel - Serum or Plasm a anion gap 13 mmol/ L low: 8mmol/ Lhigh: 16mmol /L ANION GAP 13 8 - 16 mmol/ L 12/17 9:38 AM [facility] Not Available Not Available 12/19/2024 [...] 4.0 - 9.8 K/uL 12/17 9:13 AM [facility] Not Available Not Available 12/19/2024 15:49:21 12/18/19 25 12/17/2024 CBC W Auto Diffe cassandra martin panel - Blood RBC 4.86 text: 4.50 - 5.40 M/uL RBC 4.86 4.50 - 5.40 M/uL 12/17 9:13 AM [facility] Not [facility] Not Available 12/19/2024 15:49:21 12/18/19 25 12/17/2024 CBC W Auto Diffe rentony martin panel - Blood hemoglobin 16 g/dL low: 13.6g/ dLhigh : 16.5g/ dL HEMOG LOBIN 16.0 13.6 - 16.5 g/dL 12/17 9:13 AM [facility] Not Available Not Available 12/19/2024 15:49:21 12/18/19 25 12/17/2024 CBC W Auto Diffe cassandra martin panel - Blood hematocrit [volume fraction] of blood by automated count 45.9 % low: 40%hig h: 48% HEMAT OCRIT 45.9 40.0 - 48.0 % 12/17 9:13 AM [facility] Not Available Not Available 12/19/2024 15:49:21 12/18/19 25 12/17/2024 CBC W Auto Diffe renti al panel - Blood MCV 94.4 fL low: 82fLhi gh: 99fL MCV 94.4 82.0 - 99.0 fL 12/17 9:13 AM [facility] Not [facility] Not Available 12/19/2024 15:49:21 12/18/19 25 12/17/2024 CBC W Auto Diffe renti al panel - Blood MCH 32.9 pg low: 27.2pg high: 32.6pg high MCH 32.9 (H) 27.2 - 32.6 pg 12/17 9:13 AM [facility] Not Available Not Available 12/19/2024 15:49:21 12/18/19 25 12/17/2024 CBC W Auto Diffe renti al panel - Blood MCHC 34.9 g/dL low: 31.5g/ dLhigh : 35.5g/ dL MCHC 34.9 31.5 - 35.5 g/dL 12/17 9:13 AM [facility] Not Available Not Available 12/19/2024 15:49:21 12/18/19 25 12/17/2024 CBC W Auto Diffe renti al panel - Blood RDW 12.8 % low: 11.5%h igh: 14.5% RDW 12.8 11.5 - 14.5 % 12/17 9:13 AM [facility] Not Available Not Available 12/19/2024 15:49:21 12/18/19 25 12/17/2024 CBC W Auto Diffe renti al panel - Blood RDW-stdev 44.6 fL low: 37.1fL high: 48.7fL RDW-S TDEV 44.6 37.1 - 48.7 fL 12/17 9:13 AM [facility] Not Available Not Available 12/19/2024 15:49:21 12/18/1912/17/2024 CBC W Auto Diffe renti al panel - Blood platelets [#/volume] in blood by automated count 208 K/uL low: 140K/u Lhigh: 350K/u L PLATE LETS 208 140 - 350 K/uL 12/17 9:13 AM [facility] Not Available Not Available 12/19/2024 15:49:21 12/18/19 25 12/17/2024 CBC W Auto Diffe renti al panel - Blood MPV 10.1 fL low: 9.3fLh igh: 12.4fL MPV 10.1 9.3 - 12.4 fL 12/17 9:13 AM [facility] Not Available Not Available 12/19/2024 15:49:21 12/18/19 25 12/17/2024 CBC W Auto Diffe renti al panel - Blood neutrophils 67 % NEUTR OPHIL S 67 % 12/17 9:13 AM [facility] Not Available Not Available 12/19/2024 15:49:21 12/18/19 25 12/17/2024 CBC W Auto Diffe renti al panel - Blood lymphocytes/ 100 leukocytes in blood by automated count 19 % LYMPH OCYTE S 19 % 12/17 9:13 AM [employer] Not Available Not Available 12/19/2024 15:49:21 12/18/19 25 12/17/2024 CBC W Auto Diffe renti al panel - Blood monocytes 13 % MONOC YTES 13 % 12/17 9:13 AM [employer] Not Available Not Available 12/19/2024 15:49:21 12/18/19 25 12/17/2024 CBC W Auto Diffe renti al panel - Blood eosinophils 0 % EOSIN OPHIL S 0 % 12/17 9:13 AM [facility] Not Available Not Available 12/19/2024 15:49:21 12/18/19 25 12/17/2024 CBC W Auto Diffe renti al panel - Blood basophils 1 % BASOP HILS 1 % 12/17 9:13 AM [facility] Not Available Not Available 12/19/2024 15:49:21 12/18/19 25 12/17/2024 CBC W Auto Diffe renti al panel - Blood immature granulocytes 1 % IMMAT URE GRANU LOCYT ES 1 % 12/17 9:13 AM [facility] Not Available Not Available 12/19/2024 15:49:21 12/18/19 25 12/17/2024 CBC W Auto Diffe renti al panel - Blood neutrophils [#/volume] in blood by automated count 4.74 K/uL low: 1.9K/u Lhigh: 7K/uL NEUTR OPHIL ABSOL PILOT STATION 4.74 1.90 - 7.00 K/uL 12/17 9:13 AM [facility] Not Available Not Available 12/19/2024 15:49:21 12/18/19 25 12/17/2024 CBC W Auto Diffe renti al panel - Blood lymphocyte absolute 1.33 K/uL low: 0.7K/u Lhigh: 4.5K/u L LYMPH OCYTE ABSOL PILOT STATION 1.33 0.70 - 4.50 K/uL 12/17 9:13 AM [employer] Not Available Not Available 12/19/2024 15:49:21 12/18/19 25 12/17/2024 CBC W Auto Diffe renti al panel - Blood monocyte absolute 0.91 K/uL low: 0.1K/u Lhigh: 1.3K/u L MONOC YTE ABSOL PILOT STATION 0.91 0.10 - 1.30 K/uL 12/17 9:13 AM [employer] Not Available Not Available 12/19/2024 15:49:21 12/18/19 25 12/17/2024 CBC W Auto Diffe renti al panel - Blood eosinophil absolute 0.02 K/uL low: 0K/uLh igh: 0.7K/u L EOSIN OPHIL ABSOL PILOT STATION 0.02 0.00 - 0.70 K/uL 12/17 9:13 AM [facility] Not Available Not Available 12/19/2024 15:49:21 12/18/19 25 12/17/2024 CBC W Auto Diffe renti al panel - Blood basophils absolute 0.04 K/uL low: 0K/uLh igh: 0.2K/u L BASOP HILS ABSOL PILOT STATION 0.04 0.00 - 0.20 K/uL 12/17 9:13 AM REVIEW NURSE [employer] [facility] Not Available Not Available 12/19/2024 15:49:21 12/18/19 25 12/17/2024 CBC W Auto Diffe renti al panel - Blood immature granulocytes absolute 0.04 K/uL low: 0K/uLh igh: 0.03K/ uL high IMMAT URE GRANU LOCYT ES ABSOL PILOT STATION 0.04 (H) 0.00 - 0.03 K/uL 12/17 9:13 AM REVIEW NURSE [employer] [facility] Not Available Not Available 12/19/2024 15:49:21 12/18/1912/17/2024 CBC W Auto Diffe renti al panel - Blood interpretati on and review of laboratory results Abnorm al Not Available Not Available 15:49:21 12/21/19 25 12/20/2024 Basic metab olic 1999 panel - Serum or Plasm a sodium [moles/volum e] in serum or plasma 143 mmol/ L low: 136mmo l/Lhig h: 145mmo l/L SODIU M 143 136 - 145 mmol/ L 12/20 6:33 PM [facility] Not Available Not Available 12/27/2024 12:44:41 12/21/19 25 12/20/2024 Basic metab olic 1999 panel - Serum or Plasm a potassium [moles/volum e] in serum or plasma 4.5 mmol/ L low: 3.4mmo l/Lhig h: 5.1mmo l/L POTAS SIUM 4.5 3.4 - 5.1 mmol/ L 12/20 6:33 PM REVIEW NURSE [employer] [facility] Not Available Not Available 12/27/2024 12:44:41 12/21/19 25 12/20/2024 Basic metab olic 1999 panel - Serum or Plasm a chloride 109 mmol/ L low: 98mmol /Lhigh : 107mmo l/L high CHLOR GUSTAVO 109 (H) 98 - 107 mmol/ L 12/20 6:33 PM [facility] Not Available Not Available 12/27/2024 12:44:41 12/21/19 25 12/20/2024 Basic metab olic 2000 panel - Serum or Plasm a carbon dioxide, total [moles/volum e] in serum or plasma 19 mmol/ L low: 22mmol /Lhigh : 29mmol /L low CO2 19 (L) 22 - 29 mmol/ L 12/20 6:33 PM [facility] Not Available Not Available 12/27/2024 12:44:41 12/21/19 25 12/20/2024 Basic metab olic 1999 panel - Serum or Plasm a calcium 8.2 mg/dL low: 8.6mg/ dLhigh : 10.4mg /dL low CALCI UM 8.2 (L) 8.6 - 10.4 mg/dL 12/20 6:33 PM [facility] Not Available Not Available 12/27/2024 12:44:41 12/21/19 25 12/20/2024 Basic metab olic 1999 panel - Serum or Plasm a BUN 20 mg/dL low: 6mg/dL high: 20mg/d L BUN 20 6 - 20 mg/dL 12/20 6:33 PM [facility] Not Available Not Available 12/27/2024 12:44:41 12/21/19 25 12/20/2024 Basic metab olic 1999 panel - Serum or Plasm a creatinine [mass/volume ] in serum or plasma 0.95 mg/dL low: 0.67mg /dLhig h: 1.17mg /dL CREAT ININE 0.95 0.67 - 1.17 mg/dL 12/20 6:33 PM [facility] Not Available Not Available 12/27/2024 12:44:41 12/21/19 25 12/20/2024 Basic metab olic 1999 panel - Serum or Plasm a glucose [mass/volume ] in serum or plasma 175 mg/dL low: 74mg/d Lhigh: 99mg/d L high GLUCO SE 175 (H) 74 - 99 mg/dL 12/20 6:33 PM [facility] Not Available Not Available 12/27/2024 12:44:41 12/21/1912/20/2024 Basic metab olic 2000 panel - Serum or Plasm a glomerular filtration rate/1.73 sq M.predicted [volume rate/area] in serum, plasma or blood by creatinine-b ased formula (CKD-epi 2020) text: >=60 mL/min /1.73 sq meter GFR >60 >=60 mL/mi n/1.7 3 sq meter 12/20 6:33 PM [facility] Not Available Not Available 12/27/2024 12:44:41 12/21/1912/20/2024 Basic metab olic 2000 panel - Serum or Plasm a anion gap 15 mmol/ L low: 8mmol/ Lhigh: 16mmol /L ANION GAP 15 8 - 16 mmol/ L 12/20 6:33 PM [facility] Not Available Not Available 12/27/2024 12:44:41 12/21/19 25 12/20/2024 Basic metab olic 2000 panel - Serum or Plasm a interpretati on and review of laboratory results Abnorm al Not Available Not Available 12:44:41 12/21/19 25 12/20/2024 CBC W Auto Diffe renti al panel - Blood leukocytes [#/volume] in blood 14.4 K/uL low: 4K/uLh igh: 9.8K/u L high WBC 14.4 (H) 4.0 - 9.8 K/uL 12/20 6:12 PM [facility] Not Available Not Available 12/27/2024 12:44:41 12/21/19 25 12/20/2024 CBC W Auto Diffe renti al panel - Blood RBC 4.65 text: 4.50 - 5.40 M/uL RBC 4.65 4.50 - 5.40 M/uL 12/20 6:12 PM [facility] Not Available 12/27/2024 12:44:41 12/21/19 25 12/20/2024 CBC W Auto Diffe renti al panel - Blood hemoglobin 15 g/dL low: 13.6g/ dLhigh : 16.5g/ dL HEMOG LOBIN 15.0 13.6 - 16.5 g/dL 12/20 6:12 PM [facility] [employer] [facility] Not Available Not Available 12/27/2024 12:44:41 12/21/19 25 12/20/2024 CBC W Auto Diffe renti al panel - Blood hematocrit [volume fraction] of blood by automated count 44.5 % low: 40%hig h: 48% HEMAT OCRIT 44.5 40.0 - 48.0 % 12/20 6:12 PM [facility] [employer] [facility] Not Available Not Available 12/27/2024 12:44:41 12/21/19 25 12/20/2024 CBC W Auto Diffe renti al panel - Blood MCV 95.7 fL low: 82fLhi gh: 99fL MCV 95.7 82.0 - 99.0 fL 12/20 6:12 PM [facility] Not Available Not Available 12/27/2024 12:44:41 12/21/19 25 12/20/2024 CBC W Auto Diffe renti al panel - Blood MCH 32.3 pg low: 27.2pg high: 32.6pg MCH 32.3 27.2 - 32.6 pg 12/20 6:12 PM [facility] [employer] [facility] Not Available Not Available 12/27/2024 12:44:41 12/21/19 25 12/20/2024 CBC W Auto Diffe renti al panel - Blood MCHC 33.7 g/dL low: 31.5g/ dLhigh : 35.5g/ dL MCHC 33.7 31.5 - 35.5 g/dL 12/20 6:12 PM [facility] [employer] [facility] Not Available Not Available 12/27/2024 12:44:41 12/21/19 25 12/20/2024 CBC W Auto Diffe renti al panel - Blood RDW 12.8 % low: 11.5%h igh: 14.5% RDW 12.8 11.5 - 14.5 % 12/20 6:12 PM REVIEW NURSE [employer] [facility] Not Available Not Available 12/27/2024 12:44:41 12/21/19 25 12/20/2024 CBC W Auto Diffe renti al panel - Blood RDW-stdev 45.3 fL low: 37.1fL high: 48.7fL RDW-S TDEV 45.3 37.1 - 48.7 fL 12/20 6:12 PM [facility] [employer] [facility] Not Available Not Available 12/27/2024 12:44:41 12/21/19 25 12/20/2024 CBC W Auto Diffe renti al panel - Blood platelets [#/volume] in blood by automated count 195 K/uL low: 140K/u Lhigh: 350K/u L PLATE LETS 195 140 - 350 K/uL 12/20 6:12 PM REVIEW NURSE [employer] [facility] Not Available Not Available 12/27/2024 12:44:41 12/21/19 25 12/20/2024 CBC W Auto Diffe renti al panel - Blood MPV 10.6 fL low: 9.3fLh igh: 12.4fL MPV 10.6 9.3 - 12.4 fL 12/20 6:12 PM [employer] [facility] Not Available Not Available 12/27/2024 12:44:41 12/21/19 25 12/20/2024 CBC W Auto Diffe renti al panel - Blood neutrophils 90 % NEUTR OPHIL S 90 % 12/20 6:12 PM [employer] [facility] Not Available Not Available 12/27/2024 12:44:41 12/21/19 25 12/20/2024 CBC W Auto Diffe renti al panel - Blood lymphocytes/ 100 leukocytes in blood by automated count 4 % LYMPH OCYTE S 4 % 03/07 /2025 6:12 PM REVIEW NURSE [facility] Not Available Not Available 12/27/2024 12:44:41 12/21/19 25 12/20/2024 CBC W Auto Diffe renti al panel - Blood monocytes 5 % MONOC YTES 5 % 12/20 6:12 PM [facility] Not Available Not Available 12/27/2024 12:44:41 12/21/19 25 12/20/2024 CBC W Auto Diffe renti al panel - Blood eosinophils 0 % EOSIN OPHIL S 0 % 12/20 6:12 PM [facility] Not Available Not Available 12/27/2024 12:44:41 12/21/19 25 12/20/2024 CBC W Auto Diffe renti al panel - Blood basophils 0 % BASOP HILS 0 % 12/20 6:12 PM [facility] Not Available Not Available 12/27/2024 12:44:41 12/21/19 25 12/20/2024 CBC W Auto Diffe renti al panel - Blood immature granulocytes 1 % IMMAT URE GRANU LOCYT ES 1 % 12/20 6:12 PM [facility] Not Available Not Available 12/27/2024 12:44:41 12/21/19 25 12/20/2024 CBC W Auto Diffe renti al panel - Blood neutrophils [#/volume] in blood by automated count 12.91 K/uL low: 1.9K/u Lhigh: 7K/uL high NEUTR OPHIL ABSOL PILOT STATION 12.91 (H) 1.90 - 7.00 K/uL 12/20 6:12 PM [facility] Not Available Not Available 12/27/2024 12:44:41 12/21/19 25 12/20/2024 CBC W Auto Diffe renti al panel - Blood lymphocyte absolute 0.6 K/uL low: 0.7K/u Lhigh: 4.5K/u L low LYMPH OCYTE ABSOL PILOT STATION 0.60 (L) 0.70 - 4.50 K/uL 12/20 6:12 PM [facility] Not Available Not Available 12/27/2024 12:44:41 12/21/19 25 12/20/2024 CBC W Auto Diffe renti al panel - Blood monocyte absolute 0.76 K/uL low: 0.1K/u Lhigh: 1.3K/u L MONOC YTE ABSOL PILOT STATION 0.76 0.10 - 1.30 K/uL 12/20 6:12 PM [facility] Not Available Not Available 12/27/2024 12:44:41 12/21/19 25 12/20/2024 CBC W Auto Diffe renti al panel - Blood eosinophil absolute 0 K/uL low: 0K/uLh igh: 0.7K/u L EOSIN OPHIL ABSOL PILOT STATION 0.00 0.00 - 0.70 K/uL 12/20 6:12 PM [facility] [employer] [facility] Not Available Not Available 12/27/2024 12:44:41 12/21/19 25 12/20/2024 CBC W Auto Diffe renti al panel - Blood basophils absolute 0.02 K/uL low: 0K/uLh igh: 0.2K/u L BASOP HILS ABSOL PILOT STATION 0.02 0.00 - 0.20 K/uL 12/20 6:12 PM [facility] [employer] [facility] Not Available Not Available 12/27/2024 12:44:41 12/21/19 25 12/20/2024 CBC W Auto Diffe renti al panel - Blood immature granulocytes absolute 0.08 K/uL low: 0K/uLh igh: 0.03K/ uL high IMMAT URE GRANU LOCYT ES ABSOL PILOT STATION 0.08 (H) 0.00 - 0.03 K/uL 12/20 6:12 PM [facility] [employer] [facility] Not Available Not Available 12/27/2024 12:44:41 12/21/19 25 12/20/2024 CBC W Auto Diffe renti al panel - Blood interpretati on and review of laboratory results Abnorm al Not Available Not Available 12:44:41 12/22/19 25 12/21/2024 AMYLA SE, BODY FLUID amylase, fld 13 U/L AMYLA SE, FLD 13 U/L 12/21 8:45 AM REVIEW NURSE [facility] Not Available Not Available 12/27/2024 12:44:41 12/22/19 25 12/21/2024 Basic metab olic 1999 panel - Serum or Plasm a sodium [moles/volum e] in serum or plasma 141 mmol/ L low: 136mmo l/Lhig h: 145mmo l/L SODIU M 141 136 - 145 mmol/ L 12/21 5:50 AM REVIEW NURSE [employer] [facility] Not Available Not Available 12/27/2024 12:44:41 12/22/19 25 12/21/2024 Basic metab olic 1999 panel - Serum or Plasm a potassium [moles/volum e] in serum or plasma 4.1 mmol/ L low: 3.4mmo l/Lhig h: 5.1mmo l/L POTAS SIUM 4.1 3.4 - 5.1 mmol/ L 12/21 5:50 AM REVIEW NURSE [employer] [facility] Not Available Not Available 12/27/2024 12:44:41 12/22/19 25 12/21/2024 Basic metab olic 1999 panel - Serum or Plasm a chloride 107 mmol/ L low: 98mmol /Lhigh : 107mmo l/L CHLOR GUSTAVO 107 98 - 107 mmol/ L 12/21 5:50 AM REVIEW NURSE [employer] [facility] Not Available Not Available 12/27/2024 12:44:41 12/22/19 25 12/21/2024 Basic metab olic 1999 panel - Serum or Plasm a carbon dioxide, total [moles/volum e] in serum or plasma 24 mmol/ L low: 22mmol /Lhigh : 29mmol /L CO2 24 22 - 29 mmol/ L 12/21 5:50 AM [facility]UNC [facility] CAMPUSSafetyTat [facility] Not Available Not Available 12/27/2024 12:44:41 12/22/19 25 12/21/2024 Basic metab olic 1999 panel - Serum or Plasm a calcium 8.2 mg/dL low: 8.6mg/ dLhigh : 10.4mg /dL low CALCI UM 8.2 (L) 8.6 - 10.4 mg/dL 12/21 5:50 AM [employer] [facility] Not Available Not Available 12/27/2024 12:44:41 12/22/19 25 12/21/2024 Basic metab olic 1999 panel - Serum or Plasm a BUN 16 mg/dL low: 6mg/dL high: 20mg/d L BUN 16 6 - 20 mg/dL 12/21 5:50 AM [employer] [facility] Not Available Not Available 12/27/2024 12:44:41 12/22/19 25 12/21/2024 Basic metab olic 1999 panel - Serum or Plasm a creatinine [mass/volume ] in serum or plasma 0.78 mg/dL low: 0.67mg /dLhig h: 1.17mg /dL CREAT ININE 0.78 0.67 - 1.17 mg/dL 12/21 5:50 AM [employer] [facility] Not Available Not Available 12/27/2024 12:44:41 12/22/19 25 12/21/2024 Basic metab olic 1999 panel - Serum or Plasm a glucose [mass/volume ] in serum or plasma 138 mg/dL low: 74mg/d Lhigh: 99mg/d L high GLUCO SE 138 (H) 74 - 99 mg/dL 12/21 5:50 AM [employer] [facility] Not Available Not Available 12/27/2024 12:44:41 12/22/19 25 12/21/2024 Basic metab olic 2000 panel - Serum or Plasm a glomerular filtration rate/1.73 sq M.predicted [volume rate/area] in serum, plasma or blood by creatinine-b ased formula (CKD-epi 2020) text: >=60 mL/min /1.73 sq meter GFR >60 >=60 mL/mi n/1.7 3 sq meter 12/21 5:50 AM [employer] [facility] Not Available Not Available 12/27/2024 12:44:41 12/22/1912/21/2024 Basic metab olic 2000 panel - Serum or Plasm a anion gap 10 mmol/ L low: 8mmol/ Lhigh: 16mmol /L ANION GAP 10 8 - 16 mmol/ L 12/21 5:50 AM [employer] [facility] Not Available Not Available 12/27/2024 12:44:41 12/22/19 25 12/21/2024 Basic metab olic 2000 panel - Serum or Plasm a interpretati on and review of laboratory results Abnorm al Not Available Not Available 12:44:41 12/22/19 25 12/21/2024 CBC W Auto Diffe renti al panel - Blood leukocytes [#/volume] in blood 12.8 K/uL low: 4K/uLh igh: 9.8K/u L high WBC 12.8 (H) 4.0 - 9.8 K/uL 12/21 5:23 AM [employer] [facility] Not Available Not Available 12/27/2024 12:44:41 12/22/19 25 12/21/2024 CBC W Auto Diffe renti al panel - Blood RBC 4.21 text: 4.50 - 5.40 M/uL low RBC 4.21 (L) 4.50 - 5.40 M/uL 12/21 5:23 AM [employer] [facility] Not Available Not Available 12/27/2024 12:44:41 12/22/19 25 12/21/2024 CBC W Auto Diffe renti al panel - Blood hemoglobin 13.7 g/dL low: 13.6g/ dLhigh : 16.5g/ dL HEMOG LOBIN 13.7 13.6 - 16.5 g/dL 12/21 5:23 AM [employer] [facility] Not Available Not Available 12/27/2024 12:44:41 12/22/19 25 12/21/2024 CBC W Auto Diffe renti al panel - Blood hematocrit [volume fraction] of blood by automated count 40.8 % low: 40%hig h: 48% HEMAT OCRIT 40.8 40.0 - 48.0 % 12/21 5:23 AM [facility] [facility] Not Available Not Available 12/27/2024 12:44:41 12/22/19 25 12/21/2024 CBC W Auto Diffe renti al panel - Blood MCV 96.9 fL low: 82fLhi gh: 99fL MCV 96.9 82.0 - 99.0 fL 12/21 5:23 AM [employer] [facility] Not Available Not Available 12/27/2024 12:44:41 12/22/19 25 12/21/2024 CBC W Auto Diffe renti al panel - Blood MCH 32.5 pg low: 27.2pg high: 32.6pg MCH 32.5 27.2 - 32.6 pg 12/21 5:23 AM [employer] [facility] Not Available Not Available 12/27/2024 12:44:41 12/22/19 25 12/21/2024 CBC W Auto Diffe renti al panel - Blood MCHC 33.6 g/dL low: 31.5g/ dLhigh : 35.5g/ dL MCHC 33.6 31.5 - 35.5 g/dL 12/21 5:23 AM [employer] [facility] Not Available Not Available 12/27/2024 12:44:41 12/22/19 25 12/21/2024 CBC W Auto Diffe renti al panel - Blood RDW 13 % low: 11.5%h igh: 14.5% RDW 13.0 11.5 - 14.5 % 12/21 5:23 AM [employer] [facility] Not Available Not Available 12/27/2024 12:44:41 12/22/19 25 12/21/2024 CBC W Auto Diffe renti al panel - Blood RDW-stdev 46.5 fL low: 37.1fL high: 48.7fL RDW-S TDEV 46.5 37.1 - 48.7 fL 12/21 5:23 AM [employer] [facility] Not Available Not Available 12/27/2024 12:44:41 12/22/19 25 12/21/2024 CBC W Auto Diffe renti al panel - Blood platelets [#/volume] in blood by automated count 208 K/uL low: 140K/u Lhigh: 350K/u L PLATE LETS 208 140 - 350 K/uL 12/21 5:23 AM [employer] [facility] Not Available Not Available 12/27/2024 12:44:41 12/22/19 25 12/21/2024 CBC W Auto Diffe renti al panel - Blood MPV 10 fL low: 9.3fLh igh: 12.4fL MPV 10.0 9.3 - 12.4 fL 12/21 5:23 AM [employer] [facility] Not Available Not Available 12/27/2024 12:44:41 12/22/19 25 12/21/2024 CBC W Auto Diffe renti al panel - Blood neutrophils 74 % NEUTR OPHIL S 74 % 12/21 5:23 AM [employer] [facility] Not Available Not Available 12/27/2024 12:44:41 12/22/19 25 12/21/2024 CBC W Auto Diffe renti al panel - Blood lymphocytes/ 100 leukocytes in blood by automated count 13 % LYMPH OCYTE S 13 % 12/21 5:23 AM [facility] [facility] Not Available Not Available 12/27/2024 12:44:41 12/22/19 25 12/21/2024 CBC W Auto Diffe renti al panel - Blood monocytes 12 % MONOC YTES 12 % 12/21 5:23 AM [facility] Not Available Not Available 12/27/2024 12:44:41 12/22/19 25 12/21/2024 CBC W Auto Diffe renti al panel - Blood eosinophils 0 % EOSIN OPHIL S 0 % 12/21 5:23 AM [facility] Not Available Not Available 12/27/2024 12:44:41 12/22/19 25 12/21/2024 CBC W Auto Diffe renti al panel - Blood basophils 0 % BASOP HILS 0 % 12/21 5:23 AM REVIEW NURSE [employer] [facility] Not Available Not Available 12/27/2024 12:44:41 12/22/19 25 12/21/2024 CBC W Auto Diffe renti al panel - Blood immature granulocytes 1 % IMMAT URE GRANU LOCYT ES 1 % 12/21 5:23 AM [facility] Not Available Not Available 12/27/2024 12:44:41 12/22/19 25 12/21/2024 CBC W Auto Diffe renti al panel - Blood neutrophils [#/volume] in blood by automated count 9.49 K/uL low: 1.9K/u Lhigh: 7K/uL high NEUTR OPHIL ABSOL PILOT STATION 9.49 (H) 1.90 - 7.00 K/uL 12/21 5:23 AM [facility] Not Available Not Available 12/27/2024 12:44:41 12/22/19 25 12/21/2024 CBC W Auto Diffe renti al panel - Blood lymphocyte absolute 1.65 K/uL low: 0.7K/u Lhigh: 4.5K/u L LYMPH OCYTE ABSOL PILOT STATION 1.65 0.70 - 4.50 K/uL 12/21 5:23 AM [facility] Not Available Not Available 12/27/2024 12:44:41 12/22/19 25 12/21/2024 CBC W Auto Diffe renti al panel - Blood monocyte absolute 1.53 K/uL low: 0.1K/u Lhigh: 1.3K/u L high MONOC YTE ABSOL PILOT STATION 1.53 (H) 0.10 - 1.30 K/uL 12/21 5:23 AM REVIEW NURSE [employer] [facility] Not Available Not Available 12/27/2024 12:44:41 12/22/19 25 12/21/2024 CBC W Auto Diffe renti al panel - Blood eosinophil absolute 0 K/uL low: 0K/uLh igh: 0.7K/u L EOSIN OPHIL ABSOL PILOT STATION 0.00 0.00 - 0.70 K/uL 12/21 5:23 AM REVIEW NURSE [employer] [facility] Not Available Not Available 12/27/2024 12:44:41 12/22/19 25 12/21/2024 CBC W Auto Diffe renti al panel - Blood basophils absolute 0.02 K/uL low: 0K/uLh igh: 0.2K/u L BASOP HILS ABSOL PILOT STATION 0.02 0.00 - 0.20 K/uL 12/21 5:23 AM REVIEW NURSE [employer] [facility] Not Available Not Available 12/27/2024 12:44:41 12/22/19 25 12/21/2024 CBC W Auto Diffe renti al panel - Blood immature granulocytes absolute 0.06 K/uL low: 0K/uLh igh: 0.03K/ uL high IMMAT URE GRANU LOCYT ES ABSOL PILOT STATION 0.06 (H) 0.00 - 0.03 K/uL 12/21 5:23 AM [employer] [facility] Not Available Not Available 12/27/2024 12:44:41 12/22/19 25 12/21/2024 CBC W Auto Diffe renti al panel - Blood interpretati on and review of laboratory results Abnorm al Not Available Not Available 12:44:41 12/22/19 25 12/21/2024 AMYLA SE, BODY FLUID amylase, fld 17 U/L AMYLA SE, FLD 17 U/L 12/21 6:04 AM [employer] [facility] Not Available Not Available 12/27/2024 12:44:41 12/23/19 25 12/22/2024 Basic metab olic 2000 panel - Serum or Plasm a sodium [moles/volum e] in serum or plasma 140 mmol/ L low: 136mmo l/Lhig h: 145mmo l/L SODIU M 140 136 - 145 mmol/ L 12/22 5:53 AM [facility] Not Available Not Available 12/27/2024 12:44:42 12/23/19 25 12/22/2024 Basic metab olic 1999 panel - Serum or Plasm a potassium [moles/volum e] in serum or plasma 4 mmol/ L low: 3.4mmo l/Lhig h: 5.1mmo l/L POTAS SIUM 4.0 3.4 - 5.1 mmol/ L 12/22 5:53 AM [facility] Not Available Not Available 12/27/2024 12:44:42 12/23/19 25 12/22/2024 Basic metab olic 1999 panel - Serum or Plasm a chloride 104 mmol/ L low: 98mmol /Lhigh : 107mmo l/L CHLOR GUSTAVO 104 98 - 107 mmol/ L 12/22 5:53 AM [facility] Not Available Not Available 12/27/2024 12:44:42 12/23/19 25 12/22/2024 Basic metab olic 1999 panel - Serum or Plasm a carbon dioxide, total [moles/volum e] in serum or plasma 26 mmol/ L low: 22mmol /Lhigh : 29mmol /L CO2 26 22 - 29 mmol/ L 12/22 5:53 AM [facility] Not Available Not Available 12/27/2024 12:44:42 12/23/19 25 12/22/2024 Basic metab olic 2000 panel - Serum or Plasm a calcium 8.5 mg/dL low: 8.6mg/ dLhigh : 10.4mg /dL low CALCI UM 8.5 (L) 8.6 - 10.4 mg/dL 12/22 5:53 AM [facility] Not Available Not Available 12/27/2024 12:44:42 12/23/19 25 12/22/2024 Basic metab olic 2000 panel - Serum or Plasm a BUN 13 mg/dL low: 6mg/dL high: 20mg/d L BUN 13 6 - 20 mg/dL 12/22 5:53 AM [facility] RAVI JACKSON [facility] Not Available Not Available 12/27/2024 12:44:42 12/23/1912/22/2024 Basic metab olic 1999 panel - Serum or Plasm a creatinine [mass/volume ] in serum or plasma 0.7 mg/dL low: 0.67mg /dLhig h: 1.17mg /dL CREAT ININE 0.70 0.67 - 1.17 mg/dL 12/22 5:53 AM [facility] Not Available Not Available 12/27/2024 12:44:42 12/23/19 25 12/22/2024 Basic metab olic 2000 panel - Serum or Plasm a glucose [mass/volume ] in serum or plasma 137 mg/dL low: 74mg/d Lhigh: 99mg/d L high GLUCO SE 137 (H) 74 - 99 mg/dL 12/22 5:53 AM [facility] RAVI GARCIA [employer] [facility] Not Available Not Available 12/27/2024 12:44:42 12/23/19 25 12/22/2024 Basic metab olic 2000 panel - Serum or Plasm a glomerular filtration rate/1.73 sq M.predicted [volume rate/area] in serum, plasma or blood by creatinine-b ased formula (CKD-epi 2020) text: >=60 mL/min /1.73 sq meter GFR >60 >=60 mL/mi n/1.7 3 sq meter 12/22 5:53 AM [facility] RAVI GARCIA [employer] [facility] Not Available Not Available 12/27/2024 12:44:42 12/23/19 25 12/22/2024 Basic metab olic 2000 panel - Serum or Plasm a anion gap 10 mmol/ L low: 8mmol/ Lhigh: 16mmol /L ANION GAP 10 8 - 16 mmol/ L 12/22 5:53 AM [facility] RAVI JACKSON [facility] Not Available Not Available 12/27/2024 12:44:42 12/23/19 25 12/22/2024 Basic metab olic 2000 panel - Serum or Plasm a interpretati on and review of laboratory results Abnorm al Not Available Not Available 12:44:42 12/23/19 25 12/22/2024 CBC W Auto Diffe renti al panel - Blood leukocytes [#/volume] in blood 11.4 K/uL low: 4K/uLh igh: 9.8K/u L high WBC 11.4 (H) 4.0 - 9.8 K/uL 12/22 5:29 AM CDVinomis Laboratories [facility] LIMASafetyTat [facility] Not Available Not Available 12/27/2024 12:44:41 12/23/19 25 12/22/2024 CBC W Auto Diffe cassandra al panel - Blood RBC 4.21 text: 4.50 - 5.40 M/uL low RBC 4.21 (L) 4.50 - 5.40 M/uL 12/22 5:29 AM [facility] Not Available Not Available 12/27/2024 12:44:41 12/23/19 25 12/22/2024 CBC W Auto Diffe amyti al panel - Blood hemoglobin 13.6 g/dL low: 13.6g/ dLhigh : 16.5g/ dL HEMOG LOBIN 13.6 13.6 - 16.5 g/dL 12/22 5:29 AM [facility] Not Available Not Available 12/27/2024 12:44:41 12/23/19 25 12/22/2024 CBC W Auto Diffe cassandra al panel - Blood hematocrit [volume fraction] of blood by automated count 41.3 % low: 40%hig h: 48% HEMAT OCRIT 41.3 40.0 - 48.0 % 12/22 5:29 AM [employer] [facility] LIMASafetyTat [facility] Not Available Not Available 12/27/2024 12:44:41 12/23/19 25 12/22/2024 CBC W Auto Diffe renti al panel - Blood MCV 98.1 fL low: 82fLhi gh: 99fL MCV 98.1 82.0 - 99.0 fL 12/22 5:29 AM [employer] [facility] LIMASafetyTat [facility] Not Available Not Available 12/27/2024 12:44:41 12/23/19 25 12/22/2024 CBC W Auto Diffe renti al panel - Blood MCH 32.3 pg low: 27.2pg high: 32.6pg MCH 32.3 27.2 - 32.6 pg 12/22 5:29 AM CDT [employer] [facility] Not Available Not Available 12/27/2024 12:44:41 12/23/19 25 12/22/2024 CBC W Auto Diffe renti al panel - Blood MCHC 32.9 g/dL low: 31.5g/ dLhigh : 35.5g/ dL MCHC 32.9 31.5 - 35.5 g/dL 12/22 5:29 AM CDT [employer] [facility] Not Available Not Available 12/27/2024 12:44:41 12/23/19 25 12/22/2024 CBC W Auto Diffe renti al panel - Blood RDW 12.9 % low: 11.5%h igh: 14.5% RDW 12.9 11.5 - 14.5 % 12/22 5:29 AM CDT [facility] Not Available Not Available 12/27/2024 12:44:41 12/23/19 25 12/22/2024 CBC W Auto Diffe renti al panel - Blood RDW-stdev 46.3 fL low: 37.1fL high: 48.7fL RDW-S TDEV 46.3 37.1 - 48.7 fL 12/22 5:29 AM CDAethlon MedicalL[facility] Not Available Not Available 12/27/2024 12:44:41 12/23/19 25 12/22/2024 CBC W Auto Diffe renti al panel - Blood platelets [#/volume] in blood by automated count 174 K/uL low: 140K/u Lhigh: 350K/u L PLATE LETS 174 140 - 350 K/uL 12/22 5:29 AM CDIngenios Health [facility] Not Available Not Available 12/27/2024 12:44:41 12/23/19 25 12/22/2024 CBC W Auto Diffe renti al panel - Blood MPV 10.3 fL low: 9.3fLh igh: 12.4fL MPV 10.3 9.3 - 12.4 fL 12/22 5:29 AM CDT [employer] [facility] Not Available Not Available 12/27/2024 12:44:41 12/23/19 25 12/22/2024 CBC W Auto Diffe renti al panel - Blood neutrophils 79 % NEUTR OPHIL S 79 % 12/22 5:29 AM CDT [employer] [facility] Not Available Not Available 12/27/2024 12:44:41 12/23/19 25 12/22/2024 CBC W Auto Diffe renti al panel - Blood lymphocytes/ 100 leukocytes in blood by automated count 9 % LYMPH OCYTE S 9 % 12/22 5:29 AM CDT [employer] [facility] Not Available Not Available 12/27/2024 12:44:41 12/23/19 25 12/22/2024 CBC W Auto Diffe renti al panel - Blood monocytes 11 % MONOC YTES 11 % 12/22 5:29 AM CDT [employer] [facility] Not Available Not Available 12/27/2024 12:44:41 12/23/19 25 12/22/2024 CBC W Auto Diffe renti al panel - Blood eosinophils 0 % EOSIN OPHIL S 0 % 12/22 5:29 AM CDT [employer] [facility] Not Available Not Available 12/27/2024 12:44:41 12/23/19 25 12/22/2024 CBC W Auto Diffe renti al panel - Blood basophils 0 % BASOP HILS 0 % 12/22 5:29 AM CDT [employer] [facility] Not Available Not Available 12/27/2024 12:44:41 12/23/19 25 12/22/2024 CBC W Auto Diffe renti al panel - Blood immature granulocytes 0 % IMMAT URE GRANU LOCYT ES 0 % 12/22 5:29 AM CDAethlon MedicalL[facility] Not Available Not Available 12/27/2024 12:44:41 12/23/19 25 12/22/2024 CBC W Auto Diffe renti al panel - Blood neutrophils [#/volume] in blood by automated count 9.03 K/uL low: 1.9K/u Lhigh: 7K/uL high NEUTR OPHIL ABSOL PILOT STATION 9.03 (H) 1.90 - 7.00 K/uL 12/22 5:29 AM T [employer] [facility] Not Available Not Available 12/27/2024 12:44:41 12/23/19 25 12/22/2024 CBC W Auto Diffe renti al panel - Blood lymphocyte absolute 1.05 K/uL low: 0.7K/u Lhigh: 4.5K/u L LYMPH OCYTE ABSOL PILOT STATION 1.05 0.70 - 4.50 K/uL 12/22 5:29 AM [facility] [employer] [facility] Not Available Not Available 12/27/2024 12:44:41 12/23/19 25 12/22/2024 CBC W Auto Diffe renti al panel - Blood monocyte absolute 1.26 K/uL low: 0.1K/u Lhigh: 1.3K/u L MONOC YTE ABSOL PILOT STATION 1.26 0.10 - 1.30 K/uL 12/22 5:29 AM [facility] Not Available Not Available 12/27/2024 12:44:41 12/23/19 25 12/22/2024 CBC W Auto Diffe renti al panel - Blood eosinophil absolute 0.01 K/uL low: 0K/uLh igh: 0.7K/u L EOSIN OPHIL ABSOL PILOT STATION 0.01 0.00 - 0.70 K/uL 12/22 5:29 AM [employer] [facility] Not Available Not Available 12/27/2024 12:44:41 12/23/19 25 12/22/2024 CBC W Auto Diffe renti al panel - Blood basophils absolute 0.03 K/uL low: 0K/uLh igh: 0.2K/u L BASOP HILS ABSOL PILOT STATION 0.03 0.00 - 0.20 K/uL 12/22 5:29 AM T [email or web address] [facility] Not Available Not Available 12/27/2024 12:44:41 12/23/19 25 12/22/2024 CBC W Auto Diffe renti al panel - Blood immature granulocytes absolute 0.04 K/uL low: 0K/uLh igh: 0.03K/ uL high IMMAT URE GRANU LOCYT ES ABSOL PILOT STATION 0.04 (H) 0.00 - 0.03 K/uL 12/22 5:29 AM [facility] Not Available Not Available 12/27/2024 12:44:41 12/23/1912/22/2024 CBC W Auto Diffe renti al panel - Blood interpretati on and review of laboratory results Abnorm al Not Available Not Available 12:44:41 12/24/19 25 12/23/2024 AMYLA SE, BODY FLUID amylase, fld 9 U/L AMYLA SE, FLD 9 U/L 12/23 10:20 AM [facility] Not Available Not Available 12/27/2024 12:44:42 12/24/1912/23/2024 AMYLA SE, BODY FLUID amylase, fld 11 U/L AMYLA SE, FLD 11 U/L 12/23 10:20 AM [facility] Not Available Not Available 12/27/2024 12:44:42 12/24/1912/23/2024 Basic metab olic 2000 panel - Serum or Plasm a sodium [moles/volum e] in serum or plasma 139 mmol/ L low: 136mmo l/Lhig h: 145mmo l/L SODIU M 139 136 - 145 mmol/ L 12/23 5:52 AM [facility] [email or web address] [facility] Not Available Not Available 12/27/2024 12:44:42 12/24/19 12/23/2024 Basic metab olic 1999 panel - Serum or Plasm a potassium [moles/volum e] in serum or plasma 3.7 mmol/ L low: 3.4mmo l/Lhig h: 5.1mmo l/L POTAS SIUM 3.7 3.4 - 5.1 mmol/ L 12/23 5:52 AM CDT [employer] [facility] Not Available Not Available 12/27/2024 12:44:42 12/24/1912/23/2024 Basic metab olic 1999 panel - Serum or Plasm a chloride 103 mmol/ L low: 98mmol /Lhigh : 107mmo l/L CHLOR GUSTAVO 103 98 - 107 mmol/ L 12/23 5:52 AM CDT [facility] Not Available Not Available 12/27/2024 12:44:42 12/24/19 25 12/23/2024 Basic metab olic 1999 panel - Serum or Plasm a carbon dioxide, total [moles/volum e] in serum or plasma 25 mmol/ L low: 22mmol /Lhigh : 29mmol /L CO2 25 22 - 29 mmol/ L 12/23 5:52 AM CDT [facility] Not Available Not Available 12/27/2024 12:44:42 12/24/19 25 12/23/2024 Basic metab olic 1999 panel - Serum or Plasm a calcium 8.2 mg/dL low: 8.6mg/ dLhigh : 10.4mg /dL low CALCI UM 8.2 (L) 8.6 - 10.4 mg/dL 12/23 5:52 AM CDT [employer] [facility] Not Available Not Available 12/27/2024 12:44:42 12/24/19 25 12/23/2024 Basic metab olic 1999 panel - Serum or Plasm a BUN 11 mg/dL low: 6mg/dL high: 20mg/d L BUN 11 6 - 20 mg/dL 12/23 5:52 AM CDT [employer] [facility] Not Available Not Available 12/27/2024 12:44:42 0312/23/2024 Basic metab olic 1999 panel - Serum or Plasm a creatinine [mass/volume ] in serum or plasma 0.66 mg/dL low: 0.67mg /dLhig h: 1.17mg /dL low CREAT ININE 0.66 (L) 0.67 - 1.17 mg/dL 12/23 5:52 AM [facility] Not Available Not Available 12/27/2024 12:44:42 12/24/19 25 12/23/2024 Basic metab olic 1999 panel - Serum or Plasm a glucose [mass/volume ] in serum or plasma 107 mg/dL low: 74mg/d Lhigh: 99mg/d L high GLUCO SE 107 (H) 74 - 99 mg/dL 12/23 5:52 AM [facility] Not Available Not Available 12/27/2024 12:44:42 12/24/19 25 12/23/2024 Basic metab olic 1999 panel - Serum or Plasm a glomerular filtration rate/1.73 sq M.predicted [volume rate/area] in serum, plasma or blood by creatinine-b ased formula (CKD-epi 2020) text: >=60 mL/min /1.73 sq meter GFR >60 >=60 mL/mi n/1.7 3 sq meter 12/23 5:52 AM [facility] Not Available Not Available 12/27/2024 12:44:42 12/24/19 25 12/23/2024 Basic metab olic 1999 panel - Serum or Plasm a anion gap 11 mmol/ L low: 8mmol/ Lhigh: 16mmol /L ANION GAP 11 8 - 16 mmol/ L 12/23 5:52 AM [facility] Not Available Not Available 12/27/2024 12:44:42 12/24/19 25 12/23/2024 Basic metab olic 2000 panel - Serum or Plasm a interpretati on and review of laboratory results Abnorm al Not Available Not Available 12:44:42 12/24/19 25 12/23/2024 CBC W Auto Diffe renti al panel - Blood leukocytes [#/volume] in blood 9.1 K/uL low: 4K/uLh igh: 9.8K/u L WBC 9.1 4.0 - 9.8 K/uL 12/23 5:[address] [facility] Not Available Not Available 12/27/2024 12:44:42 12/24/19 25 12/23/2024 CBC W Auto Diffe cassandra al panel - Blood RBC 3.9 text: 4.50 - 5.40 M/uL low RBC 3.90 (L) 4.50 - 5.40 M/uL 12/23 5:41 AM [facility] Not Available Not Available 12/27/2024 12:44:42 12/24/19 25 12/23/2024 CBC W Auto Diffsabrina trujillo al panel - Blood hemoglobin 12.7 g/dL low: 13.6g/ dLhigh : 16.5g/ dL low HEMOG LOBIN 12.7 (L) 13.6 - 16.5 g/dL 12/23 5:41 AM [facility] Not Available Not Available 12/27/2024 12:44:42 12/24/1912/23/2024 CBC W Auto Diffsabrina trujillo al panel - Blood hematocrit [volume fraction] of blood by automated count 37.8 % low: 40%hig h: 48% low HEMAT OCRIT 37.8 (L) 40.0 - 48.0 % 12/23 5:41 AM [facility] Not Available Not Available 12/27/2024 12:44:42 12/24/19 25 12/23/2024 CBC W Auto Diffe cassandra al panel - Blood MCV 96.9 fL low: 82fLhi gh: 99fL MCV 96.9 82.0 - 99.0 fL 12/23 5:41 AM [employer] [facility] LIMASafetyTat [facility] Not Available Not Available 12/27/2024 12:44:42 12/24/19 25 12/23/2024 CBC W Auto Diffe renti al panel - Blood MCH 32.6 pg low: 27.2pg high: 32.6pg MCH 32.6 27.2 - 32.6 pg 12/23 5:41 AM CDT [employer] [facility] Not Available Not Available 12/27/2024 12:44:42 12/24/19 25 12/23/2024 CBC W Auto Diffe renti al panel - Blood MCHC 33.6 g/dL low: 31.5g/ dLhigh : 35.5g/ dL MCHC 33.6 31.5 - 35.5 g/dL 12/23 5:41 AM CDT [employer] [facility] Not Available Not Available 12/27/2024 12:44:42 12/24/19 25 12/23/2024 CBC W Auto Diffe renti al panel - Blood RDW 12.4 % low: 11.5%h igh: 14.5% RDW 12.4 11.5 - 14.5 % 12/23 5:41 AM CDT [employer] [facility] Not Available Not Available 12/27/2024 12:44:42 12/24/1912/23/2024 CBC W Auto Diffe renti al panel - Blood RDW-stdev 44.2 fL low: 37.1fL high: 48.7fL RDW-S TDEV 44.2 37.1 - 48.7 fL 12/23 5:41 AM CDAethlon MedicalL[facility] Not Available Not Available 12/27/2024 12:44:42 12/24/1912/23/2024 CBC W Auto Diffe renti al panel - Blood platelets [#/volume] in blood by automated count 159 K/uL low: 140K/u Lhigh: 350K/u L PLATE LETS 159 140 - 350 K/uL 12/23 5:41 AM CDIngenios Health [facility] Not Available Not Available 12/27/2024 12:44:42 12/24/19 25 12/23/2024 CBC W Auto Diffe renti al panel - Blood MPV 10.2 fL low: 9.3fLh igh: 12.4fL MPV 10.2 9.3 - 12.4 fL 12/23 5:41 AM CDT [facility] Not Available Not Available 12/27/2024 12:44:42 12/24/19 25 12/23/2024 CBC W Auto Diffe renti al panel - Blood neutrophils 75 % NEUTR OPHIL S 75 % 12/23 5:41 AM CDT [facility] Not Available Not Available 12/27/2024 12:44:42 12/24/19 25 12/23/2024 CBC W Auto Diffe renti al panel - Blood lymphocytes/ 100 leukocytes in blood by automated count 13 % LYMPH OCYTE S 13 % 12/23 5:41 AM CDT [facility]SH[facility] Not Available Not Available 12/27/2024 12:44:42 12/24/19 25 12/23/2024 CBC W Auto Diffe renti al panel - Blood monocytes 10 % MONOC YTES 10 % 12/23 5:41 AM CDT [facility] Not Available Not Available 12/27/2024 12:44:42 12/24/19 25 12/23/2024 CBC W Auto Diffe renti al panel - Blood eosinophils 1 % EOSIN OPHIL S 1 % 12/23 5:41 AM CDT [facility] Not Available Not Available 12/27/2024 12:44:42 12/24/19 25 12/23/2024 CBC W Auto Diffe renti al panel - Blood basophils 0 % BASOP HILS 0 % 12/23 5:41 AM CDT [facility] Not Available Not Available 12/27/2024 12:44:42 12/24/19 25 12/23/2024 CBC W Auto Diffe renti al panel - Blood immature granulocytes 1 % IMMAT URE GRANU LOCYT ES 1 % 12/23 5:41 AM CDT [facility]SH[facility] Not Available Not Available 12/27/2024 12:44:42 12/24/19 25 12/23/2024 CBC W Auto Diffe renti al panel - Blood neutrophils [#/volume] in blood by automated count 6.84 K/uL low: 1.9K/u Lhigh: 7K/uL NEUTR OPHIL ABSOL PILOT STATION 6.84 1.90 - 7.00 K/uL 12/23 5:41 AM CDT [employer] [facility] Not Available Not Available 12/27/2024 12:44:42 12/24/19 25 12/23/2024 CBC W Auto Diffe renti al panel - Blood lymphocyte absolute 1.21 K/uL low: 0.7K/u Lhigh: 4.5K/u L LYMPH OCYTE ABSOL PILOT STATION 1.21 0.70 - 4.50 K/uL 12/23 5:41 AM CDT [employer] [facility] Not Available Not Available 12/27/2024 12:44:42 12/24/19 25 12/23/2024 CBC W Auto Diffe renti al panel - Blood monocyte absolute 0.87 K/uL low: 0.1K/u Lhigh: 1.3K/u L MONOC YTE ABSOL PILOT STATION 0.87 0.10 - 1.30 K/uL 12/23 5:41 AM CDT [facility] Not Available Not Available 12/27/2024 12:44:42 12/24/19 25 12/23/2024 CBC W Auto Diffe renti al panel - Blood eosinophil absolute 0.08 K/uL low: 0K/uLh igh: 0.7K/u L EOSIN OPHIL ABSOL PILOT STATION 0.08 0.00 - 0.70 K/uL 12/23 5:41 AM CDT [employer] [facility] Not Available Not Available 12/27/2024 12:44:42 12/24/19 25 12/23/2024 CBC W Auto Diffe renti al panel - Blood basophils absolute 0.04 K/uL low: 0K/uLh igh: 0.2K/u L BASOP HILS ABSOL PILOT STATION 0.04 0.00 - 0.20 K/uL 12/23 5:41 AM CDT RAVI JACKSON [facility] Not Available Not Available 12/27/2024 12:44:42 12/24/1912/23/2024 CBC W Auto Diffe renti al panel - Blood immature granulocytes absolute 0.05 K/uL low: 0K/uLh igh: 0.03K/ uL high IMMAT URE GRANU LOCYT ES ABSOL PILOT STATION 0.05 (H) 0.00 - 0.03 K/uL 12/23 5:41 AM CDT RAVI JACKSON [facility] Not Available Not Available 12/27/2024 12:44:42 12/24/1912/23/2024 CBC W Auto Diffe renti al panel - Blood interpretati on and review of laboratory results Abnorm al Not Available Not Available 12:44:42 12/25/1912/24/2024 Basic metab olic 1999 panel - Serum or Plasm a sodium [moles/volum e] in serum or plasma 139 mmol/ L low: 136mmo l/Lhig h: 145mmo l/L SODIU M 139 136 - 145 mmol/ L 12/24 4:50 AM CDT RAVI JACKSON [facility] Not Available Not Available 12/27/2024 12:44:42 12/25/1912/24/2024 Basic metab olic 1999 panel - Serum or Plasm a potassium [moles/volum e] in serum or plasma 3.5 mmol/ L low: 3.4mmo l/Lhig h: 5.1mmo l/L POTAS SIUM 3.5 3.4 - 5.1 mmol/ L 12/24 4:50 AM CDT RAVI JACKSON [facility] Not Available Not Available 12/27/2024 12:44:42 12/25/19 25 12/24/2024 Basic metab olic 1999 panel - Serum or Plasm a chloride 104 mmol/ L low: 98mmol /Lhigh : 107mmo l/L CHLOR GUSTAVO 104 98 - 107 mmol/ L 12/24 4:50 AM CDT RAVI JACKSON [facility] Not Available Not Available 12/27/2024 12:44:42 12/25/19 25 12/24/2024 Basic metab olic 1999 panel - Serum or Plasm a carbon dioxide, total [moles/volum e] in serum or plasma 23 mmol/ L low: 22mmol /Lhigh : 29mmol /L CO2 23 22 - 29 mmol/ L 12/24 4:50 AM CDT [employer] [facility] Not Available Not Available 12/27/2024 12:44:42 12/25/19 25 12/24/2024 Basic metab olic 1999 panel - Serum or Plasm a calcium 8.5 mg/dL low: 8.6mg/ dLhigh : 10.4mg /dL low CALCI UM 8.5 (L) 8.6 - 10.4 mg/dL 12/24 4:50 AM [facility] [employer] [facility] Not Available Not Available 12/27/2024 12:44:42 12/25/19 25 12/24/2024 Basic metab olic 1999 panel - Serum or Plasm a BUN 11 mg/dL low: 6mg/dL high: 20mg/d L BUN 11 6 - 20 mg/dL 12/24 4:50 AM [facility]UN[facility] Not Available Not Available 12/27/2024 12:44:42 12/25/19 25 12/24/2024 Basic metab olic 1999 panel - Serum or Plasm a creatinine [mass/volume ] in serum or plasma 0.72 mg/dL low: 0.67mg /dLhig h: 1.17mg /dL CREAT ININE 0.72 0.67 - 1.17 mg/dL 12/24 4:50 AM [facility] [employer] [facility] Not Available Not Available 12/27/2024 12:44:42 12/25/19 25 12/24/2024 Basic metab olic 1999 panel - Serum or Plasm a glucose [mass/volume ] in serum or plasma 114 mg/dL low: 74mg/d Lhigh: 99mg/d L high GLUCO SE 114 (H) 74 - 99 mg/dL 12/24 4:50 AM CDVinomis Laboratories [facility] Not Available Not Available 12/27/2024 12:44:42 12/25/19 25 12/24/2024 Basic metab olic 2000 panel - Serum or Plasm a glomerular filtration rate/1.73 sq M.predicted [volume rate/area] in serum, plasma or blood by creatinine-b ased formula (CKD-epi 2020) text: >=60 mL/min /1.73 sq meter GFR >60 >=60 mL/mi n/1.7 3 sq meter 12/24 4:50 AM CDT [facility] Not Available Not Available 12/27/2024 12:44:42 12/25/19 25 12/24/2024 Basic metab olic 2000 panel - Serum or Plasm a anion gap 12 mmol/ L low: 8mmol/ Lhigh: 16mmol /L ANION GAP 12 8 - 16 mmol/ L 12/24 4:50 AM CDT ASHLEYNewACT [facility] Not Available Not Available 12/27/2024 12:44:42 12/25/19 25 12/24/2024 Basic metab olic 2000 panel - Serum or Plasm a interpretati on and review of laboratory results Abnorm al Not Available Not Available 12:44:42 12/25/19 25 12/24/2024 CBC W Auto Diffe renti al panel - Blood leukocytes [#/volume] in blood 7 K/uL low: 4K/uLh igh: 9.8K/u L WBC 7.0 4.0 - 9.8 K/uL 12/24 4:30 AM [facility] Not Available Not Available 12/27/2024 12:44:42 12/25/19 25 12/24/2024 CBC W Auto Diffe renti al panel - Blood RBC 3.94 text: 4.50 - 5.40 M/uL low RBC 3.94 (L) 4.50 - 5.40 M/uL 12/24 4:30 AM CDEureka KingSH[facility] Not Available Not Available 12/27/2024 12:44:42 03/11/12/24/2024 CBC W Auto Diffe renti al panel - Blood hemoglobin 12.9 g/dL low: 13.6g/ dLhigh : 16.5g/ dL low HEMOG LOBIN 12.9 (L) 13.6 - 16.5 g/dL 12/24 4:30 AM CDT [employer] [facility] LIMASafetyTat [facility] Not Available Not Available 12/27/2024 12:44:42 12/25/19 25 12/24/2024 CBC W Auto Diffe renti al panel - Blood hematocrit [volume fraction] of blood by automated count 37.8 % low: 40%hig h: 48% low HEMAT OCRIT 37.8 (L) 40.0 - 48.0 % 12/24 4:30 AM CDT [employer] [facility] Not Available Not Available 12/27/2024 12:44:42 12/25/19 25 12/24/2024 CBC W Auto Diffe renti al panel - Blood MCV 95.9 fL low: 82fLhi gh: 99fL MCV 95.9 82.0 - 99.0 fL 12/24 4:30 AM CDT [employer] [facility]IVON[facility]ASafety[facility] Not Available Not Available 12/27/2024 12:44:42 12/25/19 25 12/24/2024 CBC W Auto Diffe renti al panel - Blood MCH 32.7 pg low: 27.2pg high: 32.6pg high MCH 32.7 (H) 27.2 - 32.6 pg 12/24 4:30 AM CDEureka KingSH[facility] Not Available Not Available 12/27/2024 12:44:42 12/25/19 25 12/24/2024 CBC W Auto Diffe renti al panel - Blood MCHC 34.1 g/dL low: 31.5g/ dLhigh : 35.5g/ dL MCHC 34.1 31.5 - 35.5 g/dL 12/24 4:30 AM CDVinomis Laboratories [facility] LIMASafetyTat [facility] Not Available Not Available 12/27/2024 12:44:42 12/25/19 25 12/24/2024 CBC W Auto Diffe renti al panel - Blood RDW 12.2 % low: 11.5%h igh: 14.5% RDW 12.2 11.5 - 14.5 % 12/24 4:30 AM CDT [employer] [facility] Not Available Not Available 12/27/2024 12:44:42 12/25/19 25 12/24/2024 CBC W Auto Diffe renti al panel - Blood RDW-stdev 43.1 fL low: 37.1fL high: 48.7fL RDW-S TDEV 43.1 37.1 - 48.7 fL 12/24 4:30 AM CDT [facility]SH[facility] Not Available Not Available 12/27/2024 12:44:42 12/25/19 25 12/24/2024 CBC W Auto Diffe renti al panel - Blood platelets [#/volume] in blood by automated count 177 K/uL low: 140K/u Lhigh: 350K/u L PLATE LETS 177 140 - 350 K/uL 12/24 4:30 AM CDT [facility] Not Available Not Available 12/27/2024 12:44:42 12/25/19 25 12/24/2024 CBC W Auto Diffe renti al panel - Blood MPV 10.4 fL low: 9.3fLh igh: 12.4fL MPV 10.4 9.3 - 12.4 fL 12/24 4:30 AM [facility] Not Available Not Available 12/27/2024 12:44:42 12/25/19 25 12/24/2024 CBC W Auto Diffe renti al panel - Blood neutrophils 69 % NEUTR OPHIL S 69 % 12/24 4:30 AM [facility] Not Available Not Available 12/27/2024 12:44:42 12/25/19 25 12/24/2024 CBC W Auto Diffe renti al panel - Blood lymphocytes/ 100 leukocytes in blood by automated count 17 % LYMPH OCYTE S 17 % 12/24 4:[email or web address] [facility] Not Available Not Available 12/27/2024 12:44:42 12/25/19 25 12/24/2024 CBC W Auto Diffe renti al panel - Blood monocytes 11 % MONOC YTES 11 % 12/24 4:30 AM CDT [employer] [facility] Not Available Not Available 12/27/2024 12:44:42 12/25/19 25 12/24/2024 CBC W Auto Diffe renti al panel - Blood eosinophils 2 % EOSIN OPHIL S 2 % 12/24 4:30 AM CDT [employer] [facility] Not Available Not Available 12/27/2024 12:44:42 12/25/19 25 12/24/2024 CBC W Auto Diffe renti al panel - Blood basophils 0 % BASOP HILS 0 % 12/24 4:30 AM CDT [employer] [facility] Not Available Not Available 12/27/2024 12:44:42 12/25/19 25 12/24/2024 CBC W Auto Diffe renti al panel - Blood immature granulocytes 0 % IMMAT URE GRANU LOCYT ES 0 % 12/24 4:30 AM CDT [employer] [facility] Not Available Not Available 12/27/2024 12:44:42 12/25/19 25 12/24/2024 CBC W Auto Diffe renti al panel - Blood neutrophils [#/volume] in blood by automated count 4.84 K/uL low: 1.9K/u Lhigh: 7K/uL NEUTR OPHIL ABSOL PILOT STATION 4.84 1.90 - 7.00 K/uL 12/24 4:30 AM CDT [employer] [facility] Not Available Not Available 12/27/2024 12:44:42 12/25/19 25 12/24/2024 CBC W Auto Diffe renti al panel - Blood lymphocyte absolute 1.17 K/uL low: 0.7K/u Lhigh: 4.5K/u L LYMPH OCYTE ABSOL PILOT STATION 1.17 0.70 - 4.50 K/uL 12/24 4:30 AM CDT [facility] Not Available Not Available 12/27/2024 12:44:42 12/25/19 25 12/24/2024 CBC W Auto Diffe renti al panel - Blood monocyte absolute 0.79 K/uL low: 0.1K/u Lhigh: 1.3K/u L MONOC YTE ABSOL PILOT STATION 0.79 0.10 - 1.30 K/uL 12/24 4:30 AM T [facility] Not Available Not Available 12/27/2024 12:44:42 12/25/19 25 12/24/2024 CBC W Auto Diffe renti al panel - Blood eosinophil absolute 0.14 K/uL low: 0K/uLh igh: 0.7K/u L EOSIN OPHIL ABSOL PILOT STATION 0.14 0.00 - 0.70 K/uL 12/24 4:30 AM [facility]afetyT[facility] Not Available Not Available 12/27/2024 12:44:42 12/25/19 25 12/24/2024 CBC W Auto Diffe renti al panel - Blood basophils absolute 0.03 K/uL low: 0K/uLh igh: 0.2K/u L BASOP HILS ABSOL PILOT STATION 0.03 0.00 - 0.20 K/uL 12/24 4:30 AM [facility]afety[facility] Not Available Not Available 12/27/2024 12:44:42 12/25/19 25 12/24/2024 CBC W Auto Diffe renti al panel - Blood immature granulocytes absolute 0.03 K/uL low: 0K/uLh igh: 0.03K/ uL IMMAT URE GRANU LOCYT ES ABSOL PILOT STATION 0.03 0.00 - 0.03 K/uL 12/24 4:30 AM [facility]ALSafetyT[facility] Not Available Not Available 12/27/2024 12:44:42 12/25/19 25 12/24/2024 CBC W Auto Diffe renti al panel - Blood interpretati on and review of laboratory results Abnorm al Not Available Not Available 12:44:42 12/26/19 25 12/25/2024 AMYLA SE, BODY FLUID amylase, fld 15 U/L AMYLA SE, FLD 15 U/L 12/25 8:55 AM CDT [facility] Not Available Not Available 12/27/2024 12:44:30 12/26/19 25 12/25/2024 Basic metab olic 1999 panel - Serum or Plasm a sodium [moles/volum e] in serum or plasma 140 mmol/ L low: 136mmo l/Lhig h: 145mmo l/L SODIU M 140 136 - 145 mmol/ L 12/25 7:17 AM CDT [employer] [facility] Not Available Not Available 12/27/2024 12:44:42 12/26/1912/25/2024 Basic metab olic 1999 panel - Serum or Plasm a potassium [moles/volum e] in serum or plasma 3.7 mmol/ L low: 3.4mmo l/Lhig h: 5.1mmo l/L POTAS SIUM 3.7 3.4 - 5.1 mmol/ L 12/25 7:17 AM CDT [employer] [facility] Not Available Not Available 12/27/2024 12:44:42 12/26/1912/25/2024 Basic metab olic 2000 panel - Serum or Plasm a chloride 104 mmol/ L low: 98mmol /Lhigh : 107mmo l/L CHLOR GUSTAVO 104 98 - 107 mmol/ L 12/25 7:17 AM CDT [employer] [facility] Not Available Not Available 12/27/2024 12:44:42 12/26/19 25 12/25/2024 Basic metab olic 1999 panel - Serum or Plasm a carbon dioxide, total [moles/volum e] in serum or plasma 22 mmol/ L low: 22mmol /Lhigh : 29mmol /L CO2 22 22 - 29 mmol/ L 12/25 7:17 AM CDT [facility] Not Available Not Available 12/27/2024 12:44:42 03/1212/25/2024 Basic metab [facility] 1999 panel - Serum or Plasm a calcium 8.8 mg/dL low: 8.6mg/ dLhigh : 10.4mg /dL CALCI UM 8.8 8.6 - 10.4 mg/dL 12/25 7:17 AM CDT [employer] [facility] Not Available Not Available 12/27/2024 12:44:42 12/26/19 25 12/25/2024 Basic metab olic 1999 panel - Serum or Plasm a BUN 8 mg/dL low: 6mg/dL high: 20mg/d L BUN 8 6 - 20 mg/dL 12/25 7:17 AM T [employer] [facility] Not Available Not Available 12/27/2024 12:44:42 12/26/19 25 12/25/2024 Basic metab [facility] 1999 panel - Serum or Plasm a creatinine [mass/volume ] in serum or plasma 0.62 mg/dL low: 0.67mg /dLhig h: 1.17mg /dL low CREAT ININE 0.62 (L) 0.67 - 1.17 mg/dL 12/25 7:17 AM T [employer] [facility] Not Available Not Available 12/27/2024 12:44:42 12/26/19 25 12/25/2024 Basic [facility] 1999 panel - Serum or Plasm a glucose [mass/volume ] in serum or plasma 114 mg/dL low: 74mg/d Lhigh: 99mg/d L high GLUCO SE 114 (H) 74 - 99 mg/dL 12/25 7:17 AM [email or web address] [facility] Not Available Not Available 12/27/2024 12:44:42 12/26/19 25 12/25/2024 Basic metab [facility] 1999 panel - Serum or Plasm a glomerular filtration rate/1.73 sq M.predicted [volume rate/area] in serum, plasma or blood by creatinine-b ased formula (CKD-epi 2020) text: >=60 mL/min /1.73 sq meter GFR >60 >=60 mL/mi n/1.7 3 sq meter 12/25 7:17 AM CDT [facility] Not Available Not Available 12/27/2024 12:44:42 12/26/1912/25/2024 Basic metab olic 2000 panel - Serum or Plasm a anion gap 14 mmol/ L low: 8mmol/ Lhigh: 16mmol /L ANION GAP 14 8 - 16 mmol/ L 12/25 7:17 AM CDJaneth JACKSON [facility] Not Available Not Available 12/27/2024 12:44:42 12/26/1912/25/2024 Basic metab olic 2000 panel - Serum or Plasm a interpretati on and review of laboratory results Abnorm al Not Available Not Available 12:44:42 12/26/1912/25/2024 CBC W Auto Diffe renti al panel - Blood leukocytes [#/volume] in blood 6.8 K/uL low: 4K/uLh igh: 9.8K/u L WBC 6.8 4.0 - 9.8 K/uL 12/25 6:54 AM [employer] [facility] Not Available Not Available 12/27/2024 12:44:42 12/26/1912/25/2024 CBC W Auto Diffe renti al panel - Blood RBC 4.37 text: 4.50 - 5.40 M/uL low RBC 4.37 (L) 4.50 - 5.40 M/uL 12/25 6:54 AM [facility] Not Available Not Available 12/27/2024 12:44:42 12/26/19 25 12/25/2024 CBC W Auto Diffe renti al panel - Blood hemoglobin 14.2 g/dL low: 13.6g/ dLhigh : 16.5g/ dL HEMOG LOBIN 14.2 13.6 - 16.5 g/dL 12/25 6:54 AM [facility] Not Available Not Available 12/27/2024 12:44:42 12/26/19 25 12/25/2024 CBC W Auto Diffe renti al panel - Blood hematocrit [volume fraction] of blood by automated count 41.2 % low: 40%hig h: 48% HEMAT OCRIT 41.2 40.0 - 48.0 % 12/25 6:54 AM [facility] Not Available Not Available 12/27/2024 12:44:42 12/26/19 25 12/25/2024 CBC W Auto Diffe renti al panel - Blood MCV 94.3 fL low: 82fLhi gh: 99fL MCV 94.3 82.0 - 99.0 fL 12/25 6:54 AM [facility] Not Available Not Available 12/27/2024 12:44:42 12/26/19 25 12/25/2024 CBC W Auto Diffe renti al panel - Blood MCH 32.5 pg low: 27.2pg high: 32.6pg MCH 32.5 27.2 - 32.6 pg 12/25 6:54 AM [employer] [facility] Not Available Not Available 12/27/2024 12:44:42 12/26/1912/25/2024 CBC W Auto Diffe renti al panel - Blood MCHC 34.5 g/dL low: 31.5g/ dLhigh : 35.5g/ dL MCHC 34.5 31.5 - 35.5 g/dL 12/25 6:54 AM [facility] Not Available Not Available 12/27/2024 12:44:42 12/26/1912/25/2024 CBC W Auto Diffe renti al panel - Blood RDW 11.9 % low: 11.5%h igh: 14.5% RDW 11.9 11.5 - 14.5 % 12/25 6:54 AM [employer] [facility] Not Available Not Available 12/27/2024 12:44:42 12/26/19 25 12/25/2024 CBC W Auto Diffe renti al panel - Blood RDW-stdev 41.1 fL low: 37.1fL high: 48.7fL RDW-S TDEV 41.1 37.1 - 48.7 fL 12/25 6:54 AM [employer]T [email or web address] [facility] Not Available Not Available 12/27/2024 12:44:42 12/26/19 25 12/25/2024 CBC W Auto Diffe renti al panel - Blood platelets [#/volume] in blood by automated count 192 K/uL low: 140K/u Lhigh: 350K/u L PLATE LETS 192 140 - 350 K/uL 12/25 6:54 AM CDT [employer] [facility] Not Available Not Available 12/27/2024 12:44:42 12/26/19 25 12/25/2024 CBC W Auto Diffe renti al panel - Blood MPV 10.3 fL low: 9.3fLh igh: 12.4fL MPV 10.3 9.3 - 12.4 fL 12/25 6:54 AM [facility] Not Available Not Available 12/27/2024 12:44:42 12/26/19 25 12/25/2024 CBC W Auto Diffe renti al panel - Blood neutrophils 76 % NEUTR OPHIL S 76 % 12/25 6:54 AM [facility] Not Available Not Available 12/27/2024 12:44:42 12/26/19 25 12/25/2024 CBC W Auto Diffe renti al panel - Blood lymphocytes/ 100 leukocytes in blood by automated count 12 % LYMPH OCYTE S 12 % 12/25 6:54 AM [facility] Not Available Not Available 12/27/2024 12:44:42 12/26/19 25 12/25/2024 CBC W Auto Diffe renti al panel - Blood monocytes 10 % MONOC YTES 10 % 12/25 6:54 AM CDT [employer] [facility] Not Available Not Available 12/27/2024 12:44:42 12/26/19 25 12/25/2024 CBC W Auto Diffe renti al panel - Blood eosinophils 2 % EOSIN OPHIL S 2 % 12/25 6:54 AM CDT [employer] [facility] Not Available Not Available 12/27/2024 12:44:42 12/26/19 25 12/25/2024 CBC W Auto Diffe renti al panel - Blood basophils 0 % BASOP HILS 0 % 12/25 6:54 AM CDT [employer] [facility] Not Available Not Available 12/27/2024 12:44:42 12/26/19 25 12/25/2024 CBC W Auto Diffe renti al panel - Blood immature granulocytes 0 % IMMAT URE GRANU LOCYT ES 0 % 12/25 6:54 AM CDT [employer] [facility] Not Available Not Available 12/27/2024 12:44:42 12/26/19 25 12/25/2024 CBC W Auto Diffe renti al panel - Blood neutrophils [#/volume] in blood by automated count 5.21 K/uL low: 1.9K/u Lhigh: 7K/uL NEUTR OPHIL ABSOL PILOT STATION 5.21 1.90 - 7.00 K/uL 12/25 6:54 AM CDT [employer] [facility] Not Available Not Available 12/27/2024 12:44:42 12/26/19 25 12/25/2024 CBC W Auto Diffe renti al panel - Blood lymphocyte absolute 0.79 K/uL low: 0.7K/u Lhigh: 4.5K/u L LYMPH OCYTE ABSOL PILOT STATION 0.79 0.70 - 4.50 K/uL 12/25 6:54 AM CDT [employer] [facility] Not Available Not Available 12/27/2024 12:44:42 12/26/19 25 12/25/2024 CBC W Auto Diffe renti al panel - Blood monocyte absolute 0.67 K/uL low: 0.1K/u Lhigh: 1.3K/u L MONOC YTE ABSOL PILOT STATION 0.67 0.10 - 1.30 K/uL 12/25 6:54 AM CDT [employer] [facility] Not Available Not Available 12/27/2024 12:44:42 12/26/19 25 12/25/2024 CBC W Auto Diffe renti al panel - Blood eosinophil absolute 0.1 K/uL low: 0K/uLh igh: 0.7K/u L EOSIN OPHIL ABSOL PILOT STATION 0.10 0.00 - 0.70 K/uL 12/25 6:54 AM CDT [facility] Not Available 12/27/2024 12:44:42 12/26/19 25 12/25/2024 CBC W Auto Diffe renti al panel - Blood basophils absolute 0.02 K/uL low: 0K/uLh igh: 0.2K/u L BASOP HILS ABSOL PILOT STATION 0.02 0.00 - 0.20 K/uL 12/25 6:54 AM CDT [facility] Not Available Not Available 12/27/2024 12:44:42 12/26/19 25 12/25/2024 CBC W Auto Diffe renti al panel - Blood immature granulocytes absolute 0.03 K/uL low: 0K/uLh igh: 0.03K/ uL IMMAT URE GRANU LOCYT ES ABSOL PILOT STATION 0.03 0.00 - 0.03 K/uL 12/25 6:54 AM CDT [employer] [facility] Not Available Not Available 12/27/2024 12:44:42 12/26/19 25 12/25/2024 CBC W Auto Diffe renti al panel - Blood interpretati on and review of laboratory results Abnorm al Not Available Not Available 12:44:42 12/27/19 25 12/26/2024 CBC W Auto Diffe renti al panel - Blood leukocytes [#/volume] in blood 9.8 K/uL low: 4K/uLh igh: 9.8K/u L WBC 9.8 4.0 - 9.8 K/uL 12/26 7:54 AM CDT [employer] [facility] Not Available Not Available 12/27/2024 12:44:30 12/27/19 25 12/26/2024 CBC W Auto Diffe renti al panel - Blood RBC 4.47 text: 4.50 - 5.40 M/uL low RBC 4.47 (L) 4.50 - 5.40 M/uL 12/26 7:54 AM [facility]ureka [facility] Not Available Not Available 12/27/2024 12:44:30 12/27/19 25 12/26/2024 CBC W Auto Diffe renti al panel - Blood hemoglobin 14.5 g/dL low: 13.6g/ dLhigh : 16.5g/ dL HEMOG LOBIN 14.5 13.6 - 16.5 g/dL 12/26 7:54 AM CDT [employer] [facility] Not Available Not Available 12/27/2024 12:44:30 12/27/1912/26/2024 CBC W Auto Diffe amyti al panel - Blood hematocrit [volume fraction] of blood by automated count 41.7 % low: 40%hig h: 48% HEMAT OCRIT 41.7 40.0 - 48.0 % 12/26 7:54 AM CDT [employer] [facility] Not Available Not Available 12/27/2024 12:44:30 12/27/19 25 12/26/2024 CBC W Auto Diffe amyti al panel - Blood MCV 93.3 fL low: 82fLhi gh: 99fL MCV 93.3 82.0 - 99.0 fL 12/26 7:54 AM [employer] [facility] Not Available Not Available 12/27/2024 12:44:30 12/27/19 25 12/26/2024 CBC W Auto Diffe renti al panel - Blood MCH 32.4 pg low: 27.2pg high: 32.6pg MCH 32.4 27.2 - 32.6 pg 12/26 7:54 AM [facility]ka [facility] Not Available Not Available 12/27/2024 12:44:30 12/27/19 25 12/26/2024 CBC W Auto Diffe renti al panel - Blood MCHC 34.8 g/dL low: 31.5g/ dLhigh : 35.5g/ dL MCHC 34.8 31.5 - 35.5 g/dL 12/26 7:54 AM CDT [facility] Not Available Not Available 12/27/2024 12:44:30 12/27/19 25 12/26/2024 CBC W Auto Diffe renti al panel - Blood RDW 12.1 % low: 11.5%h igh: 14.5% RDW 12.1 11.5 - 14.5 % 12/26 7:54 AM CDT [employer] [facility] Not Available Not Available 12/27/2024 12:44:30 12/27/19 25 12/26/2024 CBC W Auto Diffe renti al panel - Blood RDW-stdev 41.1 fL low: 37.1fL high: 48.7fL RDW-S TDEV 41.1 37.1 - 48.7 fL 12/26 7:54 AM CDT [employer] [facility] Not Available Not Available 12/27/2024 12:44:30 12/27/19 25 12/26/2024 CBC W Auto Diffe renti al panel - Blood platelets [#/volume] in blood by automated count 234 K/uL low: 140K/u Lhigh: 350K/u L PLATE LETS 234 140 - 350 K/uL 12/26 7:54 AM CDT [employer] [facility] Not Available Not Available 12/27/2024 12:44:30 12/27/19 25 12/26/2024 CBC W Auto Diffe renti al panel - Blood MPV 10.2 fL low: 9.3fLh igh: 12.4fL MPV 10.2 9.3 - 12.4 fL 12/26 7:54 AM CDT [employer] [facility] Not Available Not Available 12/27/2024 12:44:30 12/27/19 25 12/26/2024 CBC W Auto Diffe renti al panel - Blood neutrophils 76 % NEUTR OPHIL S 76 % 12/26 7:54 AM CDT [employer] [facility] Not Available Not Available 12/27/2024 12:44:30 12/27/19 25 12/26/2024 CBC W Auto Diffe renti al panel - Blood lymphocytes/ 100 leukocytes in blood by automated count 12 % LYMPH OCYTE S 12 % 12/26 7:54 AM CDT [facility] Not Available Not Available 12/27/2024 12:44:30 12/27/19 25 12/26/2024 CBC W Auto Diffe renti al panel - Blood monocytes 10 % MONOC YTES 10 % 12/26 7:54 AM CDT [facility] Not Available Not Available 12/27/2024 12:44:30 12/27/19 25 12/26/2024 CBC W Auto Diffe renti al panel - Blood eosinophils 1 % EOSIN OPHIL S 1 % 12/26 7:54 AM CDT [facility] Not Available Not Available 12/27/2024 12:44:30 12/27/19 25 12/26/2024 CBC W Auto Diffe renti al panel - Blood basophils 0 % BASOP HILS 0 % 12/26 7:54 AM CDT [employer] [facility] Not Available Not Available 12/27/2024 12:44:30 12/27/19 25 12/26/2024 CBC W Auto Diffe renti al panel - Blood immature granulocytes 1 % IMMAT URE GRANU LOCYT ES 1 % 12/26 7:54 AM CDT [employer] [facility] Not Available Not Available 12/27/2024 12:44:30 12/27/19 25 12/26/2024 CBC W Auto Diffe renti al panel - Blood neutrophils [#/volume] in blood by automated count 7.45 K/uL low: 1.9K/u Lhigh: 7K/uL high NEUTR OPHIL ABSOL PILOT STATION 7.45 (H) 1.90 - 7.00 K/uL 12/26 7:54 AM CDT [employer] [facility] Not Available Not Available 12/27/2024 12:44:30 12/27/19 25 12/26/2024 CBC W Auto Diffe renti al panel - Blood lymphocyte absolute 1.21 K/uL low: 0.7K/u Lhigh: 4.5K/u L LYMPH OCYTE ABSOL PILOT STATION 1.21 0.70 - 4.50 K/uL 12/26 7:54 AM CDT [employer] [facility] Not Available Not Available 12/27/2024 12:44:30 12/27/19 25 12/26/2024 CBC W Auto Diffe renti al panel - Blood monocyte absolute 0.98 K/uL low: 0.1K/u Lhigh: 1.3K/u L MONOC YTE ABSOL PILOT STATION 0.98 0.10 - 1.30 K/uL 12/26 7:54 AM CDT [employer] [facility] Not Available Not Available 12/27/2024 12:44:30 12/27/19 25 12/26/2024 CBC W Auto Diffe renti al panel - Blood eosinophil absolute 0.08 K/uL low: 0K/uLh igh: 0.7K/u L EOSIN OPHIL ABSOL PILOT STATION 0.08 0.00 - 0.70 K/uL 12/26 7:54 AM CDT [employer] [facility] Not Available Not Available 12/27/2024 12:44:30 12/27/19 25 12/26/2024 CBC W Auto Diffe renti al panel - Blood basophils absolute 0.02 K/uL low: 0K/uLh igh: 0.2K/u L BASOP HILS ABSOL PILOT STATION 0.02 0.00 - 0.20 K/uL 12/26 7:54 AM CDT [employer] [facility] Not Available Not Available 12/27/2024 12:44:30 12/27/19 25 12/26/2024 CBC W Auto Diffe renti al panel - Blood immature granulocytes absolute 0.05 K/uL low: 0K/uLh igh: 0.03K/ uL high IMMAT URE GRANU LOCYT ES ABSOL PILOT STATION 0.05 (H) 0.00 - 0.03 K/uL 12/26 7:54 AM [facility] [employer] [facility] Not Available Not Available 12/27/2024 12:44:30 12/27/1912/26/2024 CBC W Auto Diffe cassandra al panel - Blood interpretati on and review of laboratory results Evita martin Not Available Not Available 12:44:30 12/27/19 25 12/26/2024 Basic metab olic 1999 panel - Serum or Plasm a sodium [moles/volum e] in serum or plasma 138 mmol/ L low: 136mmo l/Lhig h: 145mmo l/L SODIU M 138 136 - 145 mmol/ L 12/26 8:18 AM [facility] [employer] [facility] Not Available Not Available 12/27/2024 12:44:30 12/27/1912/26/2024 Basic metab olic 1999 panel - Serum or Plasm a potassium [moles/volum e] in serum or plasma 3.3 mmol/ L low: 3.4mmo l/Lhig h: 5.1mmo l/L low POTAS SIUM 3.3 (L) 3.4 - 5.1 mmol/ L 12/26 8:18 AM [facility] [employer] [facility] Not Available Not Available 12/27/2024 12:44:30 12/27/19 25 12/26/2024 Basic metab olic 1999 panel - Serum or Plasm a chloride 103 mmol/ L low: 98mmol /Lhigh : 107mmo l/L CHLOR GUSTAVO 103 98 - 107 mmol/ L 12/26 8:18 AM [facility] [employer] [facility] Not Available Not Available 12/27/2024 12:44:30 12/27/19 25 12/26/2024 Basic metab olic 1999 panel - Serum or Plasm a carbon dioxide, total [moles/volum e] in serum or plasma 20 mmol/ L low: 22mmol /Lhigh : 29mmol /L low CO2 20 (L) 22 - 29 mmol/ L 12/26 8:18 AM [facility] [employer] [facility] Not Available Not Available 12/27/2024 12:44:30 12/27/19 25 12/26/2024 Basic metab olic 1999 panel - Serum or Plasm a calcium 8.9 mg/dL low: 8.6mg/ dLhigh : 10.4mg /dL CALCI UM 8.9 8.6 - 10.4 mg/dL 12/26 8:18 AM CDT [employer] [facility] Not Available Not Available 12/27/2024 12:44:30 12/27/19 25 12/26/2024 Basic metab olic 1999 panel - Serum or Plasm a BUN 7 mg/dL low: 6mg/dL high: 20mg/d L BUN 7 6 - 20 mg/dL 12/26 8:18 AM CDT [employer] [facility] Not Available Not Available 12/27/2024 12:44:30 12/27/19 25 12/26/2024 Basic metab olic 1999 panel - Serum or Plasm a creatinine [mass/volume ] in serum or plasma 0.57 mg/dL low: 0.67mg /dLhig h: 1.17mg /dL low CREAT ININE 0.57 (L) 0.67 - 1.17 mg/dL 12/26 8:18 AM CDT [facility] NetworksUNC [facility]PIT[facility]ILL[facility] CAMPUSSafetyTat [facility] Not Available Not Available 12/27/2024 12:44:30 12/27/19 25 12/26/2024 Basic metab olic 1999 panel - Serum or Plasm a glucose [mass/volume ] in serum or plasma 111 mg/dL low: 74mg/d Lhigh: 99mg/d L high GLUCO SE 111 (H) 74 - 99 mg/dL 12/26 8:18 AM [employer] [facility] [employer] [facility] Not Available Not Available 12/27/2024 12:44:30 12/27/19 25 12/26/2024 Basic metab olic 1999 panel - Serum or Plasm a glomerular filtration rate/1.73 sq M.predicted [volume rate/area] in serum, plasma or blood by creatinine-b ased formula (CKD-epi 2020) text: >=60 mL/min /1.73 sq meter GFR >60 >=60 mL/mi n/1.7 3 sq meter 12/26 8:18 AM CDT [facility] Not Available Not Available 12/27/2024 12:44:30 12/27/19 25 12/26/2024 Basic metab olic 2000 panel - Serum or Plasm a anion gap 15 mmol/ L low: 8mmol/ Lhigh: 16mmol /L ANION GAP 15 8 - 16 mmol/ L 12/26 8:18 AM CDT [facility] Not Available Not Available 12/27/2024 12:44:30 12/27/19 25 12/26/2024 Basic metab olic 2000 panel - Serum or Plasm a interpretati on and review of laboratory results Abnorm al Not Available Not Available 12:44:30 02/29/20 25 02/27/2025 PET, skull base to mid-t high No observ ation record ed. [address] [facility], [place], [address], 03/04/2025 22:38:03 08/21/20 25 08/21/2025 imagi ng/di agnos tic resul t No observ ation record ed. [address] [place] [address], [id number], 08/21/2025 14:04:59 Result Notes None recorded. Problems Name Problem SNOMED Code Status Onset Date Resolution Date Notes Provider Name and Address Organization Details Recorded Time Diabetes mellitus 77347232 Active 2023 Vielka Fofana MA [facility], [place] - [facility] 4 14:56:53 Adenocarcinoma of pancreas 699019391 Active 2024 Fabio Barrett MD Attn: Adrien g,[address] [facility] [address], [place], [address] , [facility] - [facility] 5 13:28:53 Problem Notes None recorded. Procedures Surgical History Date Name Laterality Status Provider Name and Address Organization Details Recorded Time 2024 operation on gallbladder completed Shirley Miles MA [place] - [facility] 14:21:46 2024 pancreaticoduodenectomy completed Rebecca Miles MA [place] - [facility] 5 16:42:14 Imaging Results None recorded. Procedure Notes None recorded. Medical Equipment None Reported. Allergies No known drug allergies Medications Name Sig Start Date Stop Date Status Note LastModified by Organization Details LastModified Time prochlorper azine maleate 10 mg tablet 05/22 completed Not Available Not Available Not Available ondansetron 8 mg disintegrat ing tablet 05/22 completed Not Available Not Available Not Available lidocaine-p rilocaine 2.5 %-2.5 % topical cream APPLY A QUARTER SIZE AMOUNT TO PORT SITE 30 MINUTES BEFORE ACCESS. 05/22 completed Not Available Not Available Not Available pantoprazol e 40 mg tablet,ruma yed release TAKE 1 TABLET BY MOUTH DAILY BEFORE BREAKFAST FOR 14 DAYS active Not Available Not Available No t Available insulin lispro (U-100) 100 unit/mL subcutaneou s pen INJECT 10 UNITS EVERY DAY BY SUBCUTANE OUS ROUTE WITH MEALS. 05/22 completed Not Available Not Available Not Available Humalog Mix 10 units before meals 06/27 completed Not Available Not Available Not Available Basaglar KwikPen U-100 Insulin 100 unit/mL (3 mL) subcutaneou s INJECT 35 UNITS BY SUBCUTANE OUS INJECTION DAILY AT BEDTIME 05/22 completed Not Available Not Available Not Available FreeStyle Santo 3 Sensor device CHANGE SENSOR EVERY 14 DAYS 05/22 completed Not Available Not Available Not Available Basaglar Tempo Pen(U-100)I nsln 06/27 completed Not Available Not Available Not Available Vitals Date Recorded Body height Body mass index (BMI) Body weight Heart rate Oxygen saturation Oxygen saturation in Arterial blood by Pulse oximetry Systolic And Diastolic Provider Name and Address Organization Details Last Updated DateTime 5 180.34 cm 30.6 kg/m2 40877.5 3 g 97 /min 99 % 99 % 124/80 mm[Hg] Rebecca Miles MA [place] - [facility] 5 16:46:26 Date Recorded Body height Body mass index (BMI) Body weight Heart rate Oxygen saturation Oxygen saturation in Arterial blood by Pulse oximetry Systolic And Diastolic Provider Name and Address Organization Details Last Updated DateTime 5 180.34 cm 26.8 kg/m2 48642.0 9 g 78 /min 95 % 95 % 128/70 mm[Hg] Emili Wheeler MA [facility] 5 14:48:32 Date Recorded Body height Body mass index (BMI) Body weight Heart rate Oxygen saturation Oxygen saturation in Arterial blood by Pulse oximetry Systolic And Diastolic Provider Name and Address Organization Details Last Updated DateTime 5 180.34 cm 26.8 kg/m2 38583.3 8 g 80 /min 96 % 96 % 148/70 mm[Hg] Rebecca Miles MA [facility] 5 14:20:19 Date Recorded Body height Body mass index (BMI) Body weight Heart rate Oxygen saturation Oxygen saturation in Arterial blood by Pulse oximetry Systolic And Diastolic Provider Name and Address Organization Details Last Updated DateTime 4 180.34 cm 31.7 kg/m2 563308. 47 g 83 /min 99 % 99 % 118/72 mm[Hg] Ivis Anderson MA [facility] 4 15:50:21 Date Recorded Body height Body mass index (BMI) Body weight Heart rate Oxygen saturation Oxygen saturation in Arterial blood by Pulse oximetry Systolic And Diastolic Provider Name and Address Organization Details Last Updated DateTime 4 180.34 cm 28.6 kg/m2 55572.1 5 g 94 /min 97 % 97 % 124/66 mm[Hg] Emili Wheeler MA [facility] 4 15:40:28 Social History Question Answer Notes LastModified by Organizat ion Details LastModified Time Tobacco Smoking Status [facility]27[facility]24 14:58:22 Do You Have An Advance Directive? No Information n ot available 12/19/2024 Are You Blind Or Do You Have Difficulty Seeing? No Information n ot available 06/27/2024 What Is Your Level Of Caffeine Consumption? None Information not available 12/19/2024 In The 14 Days Before Symptom Onset, Have You Had Close Contact With A Laboratory-confirm ed COVID-19 While That Case Was Ill? No Information n ot available 06/27/2024 In The 14 Days Before Symptom Onset, Have You Had Close Contact With A Person Who Is Under Investigation For COVID-19 While That Person Was Ill? No Information not available 06/27/2024 Have You Been To An Area Known To Be High Risk For COVID-19? No Information not available 06/27/2024 Are You Deaf Or Do You Have Serious Difficulty Hearing? No Information not available 06/27/2024 What Type Of Diet Are You Following? REGULAR Information n ot available 06/27/2024 Are There Any Guns Present In Your Home? No Information not available 06/27/2024 What Was The Date Of Your Most Recent Tobacco Screening? 05/22/2025 Information not available 05/22/2025 What Is Your Relationship Status? Single Information not available 12/19/2024 Do You Use Your Seat Belt Or Car Seat Routinely? Yes Information not available 06/27/2024 Do You Have Smoke And Carbon Monoxide Detectors In Your Home? Yes Information not available 06/27/2024 Do You Use Sunscreen Routinely? No Information not available 12/19/2024 Has Tobacco Cessation Counseling Been Provided? No Information not available 09/09/2024 Sex: Male Functional Status Question Answer Note LastModified by Organizat ion Details LastModified Time Do you use any illicit or recreational drugs? No Information not available 06/27/2024 Do you or have you ever used any other forms of tobacco or nicotine? No Information not available 06/27/2024 What is your level of alcohol consumption? None Information not available 09/09/2024 Are you currently employed? Yes Information not available 09/09/2024 Are you able to care for yourself independently? 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 None Information not available 12/19/2024 Mental Status Question Answer Note LastModified by Organization D etails LastModified Time Do you feel stressed (tense, restless, nervous, or anxious, or unable to sleep at night)? [id number] yehuda Information not available 06/27/2024 Family History Relationship Description Onset Age of this Age Resolved Age Notes LastModified by Organization Details LastModified Time Mother Malignant neoplasm of breast luis armandoardarmando Not available 2023 14:57:14 Medical History Condition Response Coronary Artery Disease N Other N High Blood Pressure N Atrial Fibrillation N Kidney or Bladder Problems N Thyroid Problems N GI Problems N Depression N COPD N Blood Clots N Skin Problems N Anemia N Heart Attack ([place]) N Anxiety Disorder N Diabetes Y Muscle, Joint, or Bone Problems N Seizures/Epilepsy N Acid Reflux (GERD) N Cancer N Stroke N Asthma N Allergies N High Cholesterol N Hepatitis N Liver Disease N Headaches N Heart Failure N Osteoporosis N Past Encounters Encounter ID Performer Location Encounter Start Date Encounter Closed Date Diagnosis/Indication Diagnosis SNOMED-CT Code Diagnosis ICD10 Code Diagnosis IMO Codes Diagnosis Note [id number] Fabio Barrett MD [facility] [address] [facility] [place] [address] [place] [address] 06/27/2024 14:32:46 06/27/2024 16:03:49 Obesity 719048435 E66.8 Type 2 anil betes mellitus 66196988 E11.9 Mass of pancreas 9995324 00 K86.89 Diabetes mellitus 842602 09 E13.8 [id number] Fabio Barrett MD [facility] [address] [facility] [place] [address] [place] [address] 08/01/2024 14:52:00 08/01/2024 17:04:24 Diabetes mellitus 08933217 E13.8 Mass of pancreas 0853943 00 K86.89 [id number] Fabio Barrett MD [facility] [employer] [facility] [place] [address] [place] [address] 09/09/2024 15:22:58 09/09/2024 16:27:29 Overweight 144540549 E66.3 Diabetes mellitus 372858 09 E13.8 Malignant neoplasm of pancreas 533294509 C25.9 [id number] Fabio Barrett MD [facility] [address] [facility] [place] [address] [place] [address] 12/19/2024 15:48:10 12/19/2024 17:10:54 Diabetes mellitus 35116447 E13.8 Mass of pancreas 3582654 00 K86.89 [id number] Fabio Barrett MD [facility] [address] [facility] [place] [address] [place] [address] 02/13/2025 14:24:56 02/13/2025 15:22:17 Overweight in adulthood with body mass index of 25 or more but less than 30 642180656 E66.3 Z68.26 5072571480 Overweight 128462793 E66 .3 Diabetes mellitus 167712 09 E13.8 [id number] Fabio Barrett MD [facility] [address] [facility] [place] [address] [place] [address] 05/22/2025 14:10:40 05/22/2025 15:14:37 Overweight in adulthood with body mass index of 25 or more but less than 30 966434679 E66.3 Z68.26 5716752401 Type 2 nail betes mellitus 42228915 E11.9 Z79.4 92211514 General ex amination of patient 200606949 Z00.00 390766 Adenocarci noma of pancreas 499902158 C25.9 524000 Health Concerns Section Related Observation LastModified by Organization Detai ls LastModified Time None Recorded Concern Status LastModified by Organization Details LastModified Time None Recorded Advance Directives Directive N: Payers Insurance Date Sequence Insurance Name Policy Number Policy Yu Covered Member ID Yu Member ID Guarantor Name 05/22/2025 1 *SELF PAY* Khadar Andrade 06/27/2024 SLIDING FEE SCHEDULE - DISCOUNT Ru Andrade 05/28/2025 1 [facility] (MEDICAID HMO) [id number] 0003 Ru Andrade [id number] Ru Andarde Notes Date Note Type Note Provider Name and Address Organization Details Recorded Time 08/01/2024 text/html blood sugars have been doing reasonably well they are less than 150 no polyphagia or polydipsia Fabio Barrett MD Attn: Account[address] [place], [address], [facility] 08/19/2024 21:13:19 09/09/2024 text/html 1. Diabetes he has not had any low blood sugar readings A1c in the office 6.3. He is using the lispro per sliding scale he has not had to use it and he was using the basilar. Pancreatic cancer undergoing chemotherapy no nausea no vomiting at this time he says 1st couple of days after chemo her somewhat rough Fabio Barrett MD Attn: Accounting, [address] , [place], [address], [facility] 09/12/2024 14:30:35 12/19/2024 text/html in 1 hypoglycemic spell so he is not taking any insulin just yet he has not been able to get out and get some of his preventative stuff done because of insurance issues he is having a Whipple tomorrow for his pancreatic cancer we have not been asked to provide any surgical clearance Fabio Barrett MD Attn: Accounting, [address] , [place], [address], [facility] 12/20/2024 06:56:49 02/13/2025 text/html Had his Whipple now he is going to be starting his XRT weight has been stable sugars he says have not been above 149 no polyphagia no polydipsia Fabio Barrett MD Attn: Accounting, [address] [facility], [place], [id number], [facility] - [facility] 02/13/2025 15:24:05 05/22/2025 text/html Feeling pretty good got a port in anticipating some chemo no high or low blood sugar readings Fabio Barrett MD Attn: Accounting, [address] [facility], [place], [id number], [place] [facility] 05/25/2025 13:32:53
== END 2025-08-21 08:53 | disposition home or self-care (01) ==
PROVIDERS: PCP Internal Medicine; Visit Provider Internal Medicine Hematology & Oncology
DX: C25.9 Malignant neoplasm of pancreas, unspecified (principal); Z98.890 Other specified postprocedural states
CPT/HCPCS: 78815; A9552

== ENCOUNTER 2025-09-22 10:39 | Outpatient (CLI) | payer OTHER, SELFPAY ==
[2025-09-22 11:29] LABS: Hematocrit 38.5 % (42.0-52.0); Hemoglobin 13.2 g/dL (14.0-18.0); Immature Granulocyte Percent A 0.6 % (0-0.5); Immature Platelet Fraction Pct 4.7 % (0.9-11.2); Lymphocytes Absolute Auto 0.58 K/mm3 (0.9-3.2); Mean Corpuscular HGB Conc 34.3 g/dl (32-36); Mean Corpuscular Hemoglobin 33.0 pg (26-34); Mean Corpuscular Volume 96.3 fl (80-100); Nucleated Red Blood Cells Absolute Auto 0.000 K/mm3 (0.0-0.012); Nucleated Red Blood Cells Perc 0.0 % (0.0-0.2); Platelet Count Result 133 k/mm3 (150-375); Red Blood Count 4.00 M/mm3 (4.6-6.20); White Blood Count 5.2 K/mm3 (4.5-10.0)
[2025-09-22 12:38] LABS: Alanine Aminotransferase 36 U/L (6-50); Albumin Level 4.1 g/dL (3.5-5.1); Alkaline Phosphatase 87 U/L (38-126); Anion Gap 5 mmol/L (4-12); Aspartate Amino Transferase 41 U/L (17-59); Bilirubin,Total 0.4 mg/dL (0.2-1.3); Blood Urea Nitrogen 9 mg/dL (9-20); Calcium 8.8 mg/dL (8.4-10.2); Carbon Dioxide 25 mmol/L (22-30); Chloride 110 mmol/L (98-107); Estimated Glomerular Filt Rate > 60; Glucose 117 mg/dL (65-110); Potassium 4.0 mmol/L (3.4-5.0); Sodium 140 mmol/L (137-145); Total Protein 7.3 g/dL (6.3-8.2)
[2025-09-22 12:43] LABS: Cholesterol 111 mg/dL (0-200); HDL Direct 30 mg/dL; Triglycerides 120 mg/dL (<150)
[2025-09-22 12:45] LABS: MALB Creatinine Ratio 8.0 mg/g (0-30)
[2025-09-22 12:48] LABS: Hemoglobin A1C 5.1 % (<5.7)
[2025-09-22 12:49] LABS: Iron 69 ug/dL (49-181)
[2025-09-22 12:59] LABS: Percent Iron Saturation 24 % (20-50)
[2025-09-22 13:15] LABS: Thyroid Stimulating Hormone 1.780 uIU/mL (0.465-4.680)
[2025-09-22 13:30] LABS: Ferritin 161.00 ng/mL (11.1-264)
[2025-09-23 07:09] LABS: CA 19-9 <2 U/mL (0-35)
== END 2025-09-22 10:40 | disposition home or self-care (01) ==
LOC: ANHLAB 10:40
PROVIDERS: PCP Internal Medicine; Visit Provider Internal Medicine Hematology & Oncology
DX: C25.9 Malignant neoplasm of pancreas, unspecified (principal); E13.8 Other specified diabetes mellitus with unspecified complications; R53.83 Other fatigue; Z13.6 Encounter for screening for cardiovascular disorders
CPT/HCPCS: 36415; 80053; 80061; 82043; 82728; 83036; 83540; 83550; 84443; 85025; 85055; 86301